=== PATIENT | female | born 2000 | race Caucasian/White ===

== ENCOUNTER 2022-07-23 09:04 | Outpatient (CLI) | payer OTHER, SELFPAY ==
[2022-07-23 13:32] LABS: Cholesterol* 130 mg/dL (90-199); Glucose* 91 mg/dL (60-115); Triglycerides* 55 mg/dL (40-149)
[2022-07-23 13:33] LABS: HDL Cholesterol* 61 mg/dL (>=50); LDL Cholesterol Calculated 58 mg/dL (<100)
[2022-07-23 15:49] LABS: Chlamydia DNA Amplified* NOT DETECTED (No Detected); GC DNA Amplified* NOT DETECTED (No Detected)
== END 2022-07-23 09:05 | disposition home or self-care (01) ==
PROVIDERS: PCP Physician Assistant Medical; Visit Provider Physician Assistant Medical
DX: Z01.419 Encounter for gynecological examination (general) (routine) without abnormal findings (principal); Z13.6 Encounter for screening for cardiovascular disorders; Z13.1 Encounter for screening for diabetes mellitus; Z11.3 Encounter for screening for infections with a predominantly sexual mode of transmission
CPT/HCPCS: 80061; 82947; 84443; 87491; 87591

== ENCOUNTER 2022-10-23 15:14 | Emergency (ER) | payer OTHER, SELFPAY ==
--- NOTE | 2022-10-23 15:47 | ED.NURSE ---
Refusal of services form signed. LWBS.
== END 2022-10-23 15:47 | disposition left against medical advice (07) ==
PROVIDERS: PCP Physician Assistant Medical
DX: M54.9 Dorsalgia, unspecified (principal)

== ENCOUNTER 2022-10-23 18:56 | Emergency (ER) | payer OTHER, SELFPAY ==
[2022-10-23 19:05] VITALS: PULSE 74
[2022-10-23 19:06] VITALS: BP 127/85; PULSE 74; RESP 18; TEMP 36.7; O2SAT 99; BMI 16.7
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
[2022-10-23 21:26] VITALS: BP 120/74; PULSE 79; RESP 18; TEMP 36.7; O2SAT 99
[2022-10-23 21:27] VITALS: BP 120/74; PULSE 79; RESP 18; TEMP 36.7
== END 2022-10-23 21:28 | disposition home or self-care (01) ==
PROVIDERS: Emergency Provider Internal Medicine; PCP Physician Assistant Medical
DX: M54.50 Low back pain, unspecified (principal); V43.52XA Car driver injured in collision with other type car in traffic accident, initial encounter
CPT/HCPCS: 72125; 72128; 72131; 99283

== ENCOUNTER 2022-11-20 08:12 | Outpatient (CLI) | payer OTHER, SELFPAY | END 2022-11-20 08:13 | disposition home or self-care (01) | PROVIDERS: PCP Physician Assistant Medical; Visit Provider Obstetrics & Gynecology | DX: Z34.90 Encounter for supervision of normal pregnancy, unspecified, unspecified trimester (principal) | CPT/HCPCS: 84702 ==

== ENCOUNTER 2023-02-15 13:29 | Outpatient (CLI) | payer OTHER, SELFPAY | END 2023-02-15 13:30 | disposition home or self-care (01) | LOC: NFLDREF 02-17 18:17 | PROVIDERS: PCP Physician Assistant Medical; Referring Provider Physician Assistant Medical; Visit Provider Family Medicine | DX: N39.0 Urinary tract infection, site not specified (principal); M54.50 Low back pain, unspecified; R10.9 Unspecified abdominal pain; F41.1 Generalized anxiety disorder; R63.4 Abnormal weight loss; N30.01 Acute cystitis with hematuria; Z13.1 Encounter for screening for diabetes mellitus; Z13.6 Encounter for screening for cardiovascular disorders | CPT/HCPCS: 87086; 87186 ==

== ENCOUNTER 2023-05-03 13:13 | Outpatient (CLI) | payer OTHER, SELFPAY ==
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
== END 2023-05-03 13:14 | disposition home or self-care (01) ==
LOC: US 13:14
PROVIDERS: PCP Physician Assistant Medical; Visit Provider Obstetrics & Gynecology
DX: O20.9 Hemorrhage in early pregnancy, unspecified (principal)
CPT/HCPCS: 76817; 84702; 86850; 86900; 86901

== ENCOUNTER 2023-05-25 18:32 | Outpatient (CLI) | payer OTHER, SELFPAY | END 2023-05-25 18:33 | disposition home or self-care (01) | PROVIDERS: PCP Physician Assistant Medical; Visit Provider Emergency Medicine | DX: N30.00 Acute cystitis without hematuria (principal); N39.0 Urinary tract infection, site not specified; Z68.1 Body mass index [BMI] 19.9 or less, adult | CPT/HCPCS: 84439; 84443; 84703; 87086; 87186 ==

== ENCOUNTER 2023-05-27 14:42 | Emergency (ER) | payer OTHER, SELFPAY ==
[2023-05-27 14:54] VITALS: BP 124/82; PULSE 85; RESP 16; TEMP 36.6; O2SAT 98; BMI 15.8
--- NOTE | 2023-05-27 16:12 | ED.FEMALEGU ---
HPI - Female Genitourinary General Chief complaint: Urogenital Problems, Female Stated complaint: UTI, syncope Time Seen by Provider: 05/27/23 15:35 History of Present Illness HPI Narrative: This 22-year-old female has had dysuria symptoms for the past several days and was treated for urinary tract infection. Culture results grew out E coli which is showing extensive resistance. She revisited urgent care and did receive an injection of Rocephin. Today she states he is not feeling any better and did have some lightheadedness. She also reports a miscarriage that she had a couple weeks ago and since then she has been losing some weight and just not feeling well. Culture results also now include sensitivity which show that the antibiotics she has been taking are not effective for this particular infection. Related Data Home Medications Medication Instructions Recorded Confirmed drospirenone (contraceptive) 4 mg 1 tab PO DAILY 07/23/22 05/26/23 (28) tablet Previous Rx's Medication Instructions Recorded ketorolac 10 mg tablet 10 mg PO Q8H 5 days #15 tabs 05/27/23 ondansetron HCl 4 mg tablet 4 mg PO Q6H #20 tabs 05/27/23 sulfamethoxazole 800 1 tab PO BID #10 tabs 05/27/23 mg-trimethoprim 160 mg tablet Allergies Allergy/AdvReac Type Severity Reaction Status Date / Time No Known Drug Allergies Allergy Verified 05/27/23 15:00 Review of Systems Status of ROS: Reports: 10 or more systems reviewed and unremarkable except as noted in History and below Narrative: Constitutional: No fevers, no weight gain or loss. Eyes: No discharge. No vision changes. HENT: No congestion, no sore throat, no ear pain. Cardiovascular: No chest pain, no palpitations. Respiratory: No shortness of breath, no wheezes, no cough. Gastrointestinal: No abdominal pain, no vomiting, no diarrhea. Left flank pain. Genitourinary: Urinary tract infection. Musculoskeletal: Normal range of motion. Skin: No rashes, no pruritis. Neurological: No dizziness, weakness, sensory change, speech change. Endo/Heme/Allergies: No bruising or bleeding. No polydipsia. Pysch: no suicidality, no anxiety, no insomnia. All other systems reviewed and are negative. [facility] Medical History (Updated 05/27/23 @ 18:08 by Jose Angel Burks MD) Miscarriage ?O03.9 - Complete or unspecified spontaneous without complication (ICD-10) Smoking hx ?Z87.891 - Personal history of nicotine dependence (ICD-10) Body mass index (BMI) less than 16.5 ?Z68.1 - Body mass index [BMI] 19.9 or less, adult (ICD-10) Urinary tract infection ?N39.0 - Urinary tract infection, site not specified (ICD-10) Otitis media ?H66.90 - Otitis media, unspecified, unspecified ear (ICD-10) Miscarriage, threatened, early ?O20.0 - Threatened (ICD-10) Pharyngitis ?J02.9 - Acute pharyngitis, unspecified (ICD-10) Fever ?R50.9 - Fever, unspecified (ICD-10) Vesicles ?R23.8 - Other skin changes (ICD-10) Juvenile idiopathic scoliosis ?M41.119 - Juvenile idiopathic scoliosis, site unspecified (ICD-10) Low back pain ?M54.50 - Low back pain, unspecified (ICD-10) Anxiety ?F41.9 - Anxiety disorder, unspecified (ICD-10) First trimester ?Z34.91 - Encounter for supervision of normal , unspecified, first trimester (ICD-10) Surgical History History of spinal fusion ?Z98.1 - Arthrodesis status (ICD-10) Family History Paternal Grandmother Breast cancer Paternal Grandfather Skin cancer Social History Narrative: Engaged- [employer]. Former smoker. Quit April 2022 hx of smoking cigarettes and vape. Quit April 2022. Occasional alcohol use. Smoking Status: Never smoker Do you use any of these nicotine containing products: None Second hand tobacco smoke exposure: No How often do you have a drink containing alcohol: never How often do you have six or more drinks on one occasion: Never AUDIT-C Alcohol total score: 0 Non-prescribed substance use: marijuana (any form) Little interest or pleasure in doing things: not at all Feeling down, depressed, or hopeless: not at all service: No Exam Narrative: Exam Narrative: Constitutional: Well-developed, well-nourished, no acute distress. HEENT: Normocephalic, atraumatic. Neck: Normal range of motion. Nontender. Supple. Heart: Regular. No murmurs. Normal rate. Intact distal pulses. Lungs: Clear to auscultation. No chest discomfort. No wheezes, rhonchi, or rales. Abdomen: Normal bowel sounds. Nontender. No rebound tenderness. Genitalia: Deferred. Back: No midline tenderness. Normal range of motion. Extremities: Normal range of motion. No injury. Skin: Intact. No rash. Warm. No erythema or pallor. Neurologic: No altered sensation. No weakness. Alert and oriented. Psychiatric: No suicidality. No anxiety or depression. No insomnia. Nursing notes and vitals signs are reviewed. Const: Vital Signs, click to edit/add: Vital Signs - 24 hr 05/27/23 14:54 05/27/23 17:30 Temperature 97.9 F Pulse Rate [Pulse Oximeter] 85 73 Respiratory Rate 16 20 Blood Pressure [Ri t Upper Arm] 124/82 115/73 Pulse Oximetry 98 100 Oxygen Delivery Me thod Room Air Room Air Course Vital Signs Vital signs: Initial Vital Signs Temperature 97.9 F 05/27/23 14:54 Temperature Source Temporal Artery Scan 05/27/23 14:54 Pulse Rate 85 05/27/23 14:54 Pulse Rhythm Regular 05/27/23 14:54 Pulse Strength 3+ Normal 05/27/23 14:54 Respiratory Rate 16 05/27/23 14:54 Blood Pressure 124/82 05/27/23 14:54 Blood Pressure Mean 96 05/27/23 14:54 Blood Pressure Position Sitting 05/27/23 14:54 Pulse Oximetry 98 05/27/23 14:54 Oxygen Delivery Method Room Air 05/27/23 14:54 Vital Signs Temperature 97.9 F 05/27/23 14:54 Pulse Rate 85 05/27/23 14:54 Respiratory Rate 16 05/27/23 14:54 Blood Pressure 124/82 05/27/23 14:54 Pulse Oximetry 98 05/27/23 14:54 Oxygen Delivery Method Room Air 05/27/23 14:54 Temperature 97.9 F 05/27/23 14:54 Pulse Rate 73 05/27/23 17:30 Respiratory Rate 20 05/27/23 17:30 Blood Pressure 115/73 05/27/23 17:30 Pulse Oximetry 100 05/27/23 17:30 Oxygen Delivery Method Room Air 05/27/23 17:30 MDM - Female Genitourinary MDM Narrative Medical decision making narrative: This patient comes in with a resistant urinary tract infection according to culture results. She states that she just has not been feeling well over the past couple weeks since having a miscarriage. She has nausea symptoms and states that is very difficult for her to try to take food as this triggers nausea symptoms. An IV was established and labs are drawn. These labs including urinalysis returned with normal findings. There is no evidence of sepsis or urinary tract infection. I did review culture and sensitivity results. The culture shows a resistant strain of E coli. Sensitivities indicate that ertapenem is the most effective medicine to treat this infection. The patient did receive a g of ertapenem intravenously followed by D5 half-normal saline. She also received a dose of Zofran 4 mg. This helped her feel better. Seeing the normal white count in her blood and normal urinalysis it seems that it is best not to continue antibiotic treatment for her. She is reassured with these lab results in her vital signs. She is okay to return home. I did provide a prescription for Zofran and Toradol and encouraged her to food and drink as tolerated. Lab Data Labs: Lab Results 05/27/23 05/27/23 Range/Units 16:25 16:40 WBC 6.33 (4.50-11.00) K/uL RBC 4.39 (4.00-5.20) m/uL Hgb 13.3 (12.0-16.0) gm/dL Hct 38.7 (33.0-51.0) % MCV 88 (80-100) fL MCH 30 (26-34) pg MCHC 34 (32-36) gm/dL RDW Coeff of Chris 12.2 (11.5-15.5) % Plt Count 250 (140-440) K/uL Neut % (Auto) 55.4 (42.0-72.0) % Lymph % (Auto) 35.7 (20-44) % [place] % (Auto) 7.6 (0.0-11.0) % Eos % (Auto) 0.6 (0.0-7.0) % Baso % (Auto) 0.5 (0.0-3.0) % Neut # (Auto) 3.51 (1.7-7.0) K/uL Lymph # (Auto) 2.26 (0.90-2.90) K/uL [place] # (Auto) 0.50 (0.00-0.90) K/UL Eos # (Auto) 0.04 (0.00-0.50) K/uL Baso # (Auto) 0.03 (0.00-0.30) K/uL Abs Immat Gran (auto) 0.01 (0.00-0.30) K/uL Imm/Tot Granulo (auto) 0.2 % Sodium 138 (135-149) mmol/L Potassium 3.4 L (3.6-5.1) mmol/L Chloride 107 (96-114) mmol/L Carbon Dioxide 22 (20-32) mmol/L BUN 8 (5-24) mg/dL Creatinine 0.7 (0.5-1.5) mg/dL Estimated Creat Clear 100.14 Estimated GFR 126 ml/min Glucose 88 (60-115) mg/dL Lactate 0.9 (0.5-1.9) mmol/L Calcium 9.2 (8.4-10.6) mg/dL Urine Color Yellow (Yellow) Urine Appearance Slightly Cloudy A (Clear) Urine pH 7.0 (5.0-8.5) Ur Specific [place] 1.025 (1.000-1.030) Urine Protein Negative (Negative) Urine Glucose (UA) Negative (Negative) Urine Ketones 1+ A (Negative) Urine Blood Negative (Negative) Urine Nitrite Negative (Negative) Urine Bilirubin Negative (Negative) Urine Urobilinogen 0.2 (0.2-1.0) Ur Leukocyte Esterase Negative (Negative) Urine RBC 0-2 (0-2) Urine WBC 2-5 (0-5) Ur Squamous Epith Cells Moderate A (None-Few) Urine Bacteria Few A (None) Discharge Plan Discharge Clinical Impression: Urinary tract infection, Nausea Patient Disposition: Home, Self-Care Condition: Improved Additional Instructions: Take medications as needed and directed. Increase diet as tolerated. Follow up with MD return if worsening. Prescriptions: New ondansetron HCl 4 mg tablet 4 mg PO Q6H Qty: 20 0RF ketorolac 10 mg tablet 10 mg PO Q8H 5 Days Qty: 15 0RF No Action drospirenone (contraceptive) 4 mg (28) tablet 1 tab PO DAILY Rx Instructions: control sulfamethoxazole-trimethoprim 800-160 mg tablet 1 tab PO BID Qty: 10 0RF Follow Up/Referrals: Cynthia Henderson PA-C [Primary Care Provider] - Stand Alone [facility]: [facility] Info Inst[facility]
[2023-05-27 16:32] LABS: Lactate* 0.9 mmol/L (0.5-1.9)
[2023-05-27] MEDS: ERTAPENEM 1 GM in 0.9 % SODIUM CHLORIDE Mini-bag 100 ML IVPB (16:42)
[2023-05-27 16:45] LABS: Basophils Absolute Auto 0.03 K/uL (0.00-0.30); Basophils Percent Auto 0.5 % (0.0-3.0); Eosinophils Absolute Auto 0.04 K/uL (0.00-0.50); Eosinophils Percent Auto 0.6 % (0.0-7.0); Hematocrit 38.7 % (33.0-51.0); Hemoglobin* 13.3 gm/dL (12.0-16.0); Immature Granulocytes Abs Auto 0.01 K/uL (0.00-0.30); Immature Granulocytes Pct Auto 0.2 %; Lymphocytes Absolute Auto 2.26 K/uL (0.90-2.90); Lymphocytes Percent Auto 35.7 % (20-44); Mean Corpuscular HGB Conc 34 gm/dL (32-36); Mean Corpuscular Hemoglobin 30 pg (26-34); Mean Corpuscular Volume 88 fL (80-100); Monocytes Percent Auto 7.6 % (0.0-11.0); Neutrophils Absolute Auto 3.51 K/uL (1.7-7.0); Neutrophils Percent Auto 55.4 % (42.0-72.0); Platelet Count* 250 K/uL (140-440); RDW Coefficient of Variation % 12.2 % (11.5-15.5); Red Blood Count 4.39 m/uL (4.00-5.20); White Blood Count* 6.33 K/uL (4.50-11.00)
[2023-05-27 16:52] LABS: Slide Review Reflex No
[2023-05-27 16:53] LABS: Appearance Urine Slightly Cloudy (Clear); Bilirubin Urine Negative (Negative); Blood Urine Negative (Negative); Color Urine Yellow (Yellow); Glucose Urine Negative (Negative); Ketones Urine 1+ (Negative); Leukocyte Esterase Urine Negative (Negative); Nitrite Urine Negative (Negative); Protein Urine Negative (Negative); Specific Gravity Urine 1.025 (1.000-1.030); Urobilinogen Urine 0.2 (0.2-1.0)
[2023-05-27 16:53] LABS: Chloride* 107 mmol/L (96-114); Potassium* 3.4 mmol/L (3.6-5.1); Sodium* 138 mmol/L (135-149)
[2023-05-27 16:56] LABS: Blood Urea Nitrogen* 8 mg/dL (5-24); Calcium* 9.2 mg/dL (8.4-10.6); Carbon Dioxide* 22 mmol/L (20-32); Creatinine* 0.7 mg/dL (0.5-1.5); Est. Creatinine Clearance* 100.14; Estimated Glomerular Filt Rate 126 ml/min; Glucose* 88 mg/dL (60-115)
[2023-05-27 17:21] LABS: Bacteria Urine Few; RBC Urine 0-2 (0-2); Squamous Epithelial Cell Urine Moderate (None-Few)
[2023-05-27 17:30] VITALS: BP 115/73; PULSE 73; RESP 20; O2SAT 100
[2023-05-27] MEDS: 5 % DEXTROSE/0.45% SOD CHLOR 1,000 ML 1000 ML IV (17:31)
[2023-05-27] MEDS: ONDANSETRON 2 MG/ML inj 4 MG IVP (17:50)
== END 2023-05-27 18:37 | disposition home or self-care (01) ==
PROVIDERS: Emergency Provider Emergency Medicine Emergency Medical Services; PCP Physician Assistant Medical
DX: N39.0 Urinary tract infection, site not specified (principal); B96.20 Unspecified Escherichia coli [E. coli] as the cause of diseases classified elsewhere
CPT/HCPCS: 36415; 80048; 81001; 83605; 85025; 87086; 99284; J1335; J2405; S5010

== ENCOUNTER 2023-12-26 12:18 | Outpatient (CLI) | payer OTHER, SELFPAY | END 2023-12-26 12:19 | disposition home or self-care (01) | LOC: LKVREF 12:21 | PROVIDERS: PCP Physician Assistant Medical; Visit Provider Family Medicine | DX: O26.891 Other specified pregnancy related conditions, first trimester (principal) | CPT/HCPCS: 84702 ==

== ENCOUNTER 2023-12-28 12:54 | Outpatient (CLI) | payer OTHER, SELFPAY | END 2023-12-28 12:55 | disposition home or self-care (01) | LOC: NFLDREF 01-07 12:34 | PROVIDERS: PCP Physician Assistant Medical; Referring Provider Physician Assistant Medical; Visit Provider Advanced Practice Midwife | DX: Z34.91 Encounter for supervision of normal pregnancy, unspecified, first trimester (principal); Z3A.01 Less than 8 weeks gestation of pregnancy | CPT/HCPCS: 76817; 86592; 86704; 86706; 86762; 86787; 86803; 86850; 86900; 86901; 87340; 87491; 87591 ==

== ENCOUNTER 2024-01-01 09:32 | Emergency (ER) | payer OTHER, SELFPAY ==
[2024-01-01 09:46] VITALS: BP 110/84; PULSE 118; RESP 20; TEMP 37.3; O2SAT 96; BMI 16.9
--- NOTE | 2024-01-01 10:03 | US_ITS ---
Patient: ANA ROD Facility:?[facility] Patient ID:?[id number] Site Patient ID:?[id number]. Site :?[id number] Study:?US-OB Pelvis TRANSVAGINAL-01/01/2024 10:40:01 AM Ordering Physician:AIXA DAWKINS Final Report: INDICATION: Vaginal bleeding, 6 weeks TECHNIQUE: Ultrasound OB pelvis transabdominal transvaginal. Real-time chavez-scale imaging of the pelvis was performed. COMPARISON: Ultrasound December 28, 2023 FINDINGS: Sonographic imaging demonstrates a single living intrauterine gestation. The embryo demonstrates a regular cardiac rate measuring 123 beats per minute. The embryo`s crown rump length measurement of 0.8 cm corresponds to a gestational age of 6 weeks 5 days with a sonographic due date of August 21, 2024. There is a normal appearing yolk sac. There are no gross abnormalities noted within the embryo at this early state of development. The placenta has not yet developed. There is minimal perigestational hemorrhage, new from previous exam. The ovaries are of normal size. There are no suspicious fluid collections noted in the cul-de-sac. IMPRESSION: Redemonstration of a single live intrauterine gestation measuring 6 weeks 5 days with interval development of minimal subchorionic hemorrhage along the right lateral aspect of the gestational sac. Dictated by Dc Acosta MD @ 01/01/2024 11:08:03 AM Signed by:?Dc Acosta MD @01/01/2024 11:08:03 AM (Electronic Signature)
--- NOTE | 2024-01-01 10:10 | ED.PREGNANCY ---
HPI - General Date Seen: 01/01/24 Chief complaint: Vaginal Bleeding Stated complaint: spotting, cramps (6 wks ) Time Seen by Provider: 01/01/24 09:42 Source: patient Mode of arrival: ambulatory Limitations: no limitations History of Present Illness HPI Narrative: Patient is a 23 female A2 presenting to the emergency department for vaginal bleeding. She is 6 weeks . She states last night she knows some lower abdominal cramping and then had some spotting today. She states she has had 2 previous miscarriages both around this time. States previously she will start with the small amount of spotting and then have a large amount of vaginal bleeding after. He is also feeling mildly lightheaded and dizzy. States she feels short of breath but thinks secondary to her anxiety with her situation currently. Denies fevers, chills, headache, vision changes, weakness, numbness. Has been eating and drinking without issue. Had a normal ultrasound a few days ago. Related Data Home Medications Medication Instructions Recorded Confirmed vits no.126-ferrous fum 1 tab PO QDAY PRN 12/28/23 01/01/24 28 mg iron-folic acid 800 mcg tablet (Classic ) Previous Rx's Medication Instructions Recorded ondansetron 4 mg disintegrating 4 mg PO Q6H PRN nausea and 09/07/23 tablet vomiting #12 tabs Allergies Allergy/AdvReac Type Severity Reaction Status Date / Time No Known Drug Allergies Allergy Verified 01/01/24 09:54 Review of Systems Status of ROS: Reports: 10 or more systems reviewed and unremarkable except as noted in History and below PFSH PFSH Medical History Irregular menstrual cycle ?N92.6 - Irregular menstruation, unspecified (ICD-10) Uses control ?Z78.9 - Other specified health status (ICD-10) Surgical History (Updated 12/28/23 @ 12:29 by Laura Fernandez CNM) H/O dilation and curettage ?Z98.890 - Other specified postprocedural states (ICD-10) History of spinal fusion ?Z98.1 - Arthrodesis status (ICD-10) Family History Paternal Grandmother Breast cancer Paternal Grandfather Skin cancer Social History (Updated 12/28/23 @ 17:02 by VITA Garrett Narrative: SOCIAL Education: High school 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 Palmer; no medication currently Has a hard time with rationalizing, often spirals Significant NAKIA scores today Seat Belt Use: Routinely Smoking: Denies past/present; Cig stopped 2 years ago, using e cig. Alcohol/day: Denies while , rarely socially Caffeine: Monster 1x per day, but stopped for Drug Use: Denies past/present Smoking THC occasionally; declines UDS Chicken Pox: vaccinated MRSA: Denies What is your current living situation?: I presently have a place to live Problems where you live: no known problems In the past 12 months, utilities in danger of being shut off: no In past 12 months, lack of transportation kept you from medical appts, meetings, work, or getting things needed for daily living: no In the past 12 mos, have been you worried that your food would run out before you had money to buy more?: never true In the past 12 mos, the food you bought just didn't last and you didn't have money to buy more?: never true Smoking Status: Never smoker Do you use any of these nicotine containing products: None Second hand tobacco smoke exposure: No How often do you have a drink containing alcohol: never How often do you have six or more drinks on one occasion: Never AUDIT-C Alcohol total score: 0 Non-prescribed substance use: marijuana (any form) How often does anyone, including family, friends and others, physically hurt you: never How often does anyone, including family, friends and others, insult or talk down to you: never How often does anyone, including family, friends and others, threaten you with harm: never How often does anyone, including family, friends and others, scream or curse at you: never Little interest or pleasure in doing things: more than half the days Feeling down, depressed, or hopeless: not at all service: No Exam Narrative: Exam Narrative: Const: Well-nourished, Well-developed, in mild distress Eyes: PERRL, no conjunctival injection, and symmetrical lids HENT: Atraumatic external nose and ears. Moist mucous membranes. Neck: Symmetric, trachea midline, No thyromegaly. CVS: RRR, No murmurs or gallops. Peripheral pulses 2+ and equal in all extremities RESP: Unlabored respiratory effort. Clear to auscultation bilaterally. GI: Nontender/Nondistended, No rebound or guarding. MSK:Extremities w/o deformity, Normal Active ROM Skin: Warm, Dry. No rashes or lesions. Neuro: Normal Muscle tone, No focal neurological deficits. Psych: Awake, Alert, & Oriented x3. Appropriate mood and affect. Const: Vital Signs, click to edit/add: Vital Signs - 24 hr 01/01/24 09:46 Temperature 99.2 F Pulse Rate [Pulse Oximeter] 118 H Respiratory Rate 20 Blood Pressure [Ri ght Upper Arm] 110/84 Pulse Oximetry 96 Oxygen Delivery Me thod Room Air Course Vital Signs Vital signs: Initial Vital Signs Temperature 99.2 F 01/01/24 09:46 Temperature Source Temporal Artery Scan 01/01/24 09:46 Pulse Rate 118 H 01/01/24 09:46 Respiratory Rate 20 01/01/24 09:46 Blood Pressure 110/84 01/01/24 09:46 Blood Pressure Mean 92 01/01/24 09:46 Blood Pressure Position Sitting 01/01/24 09:46 Pulse Oximetry 96 01/01/24 09:46 Oxygen Delivery Method Room Air 01/01/24 09:46 Vital Signs Temperature 99.2 F 01/01/24 09:46 Pulse Rate 118 H 01/01/24 09:46 Respiratory Rate 20 01/01/24 09:46 Blood Pressure 110/84 01/01/24 09:46 Pulse Oximetry 96 01/01/24 09:46 Oxygen Delivery Method Room Air 01/01/24 09:46 Temperature 99.2 F 01/01/24 09:46 Pulse Rate 118 H 01/01/24 09:46 Respiratory Rate 20 01/01/24 09:46 Blood Pressure 110/84 01/01/24 09:46 Pulse Oximetry 96 03/16/24 09:46 Oxygen Delivery Method Room Air 01/01/24 09:46 MDM - OB/Uterine Contractions MDM Narrative Medical decision making narrative: Patient is 23-year-old female presenting for vaginal bleeding. She had normal intra uterine seen on ultrasound a couple days ago but has had issues with multiple miscarriages around this time frame. We will repeat the ultrasound to make sure there is no new concerning findings. With her mild symptoms of lightheadedness I will do a CBC and BMP also. She is slightly tachycardic but admits to being very anxious. Lab work returned showing no concerning findings. Ultrasound showed a single live intrauterine with it some minimal subchorionic hemorrhage that is new. This is not something needs to be managed in the emergency department and she can follow-up outpatient. She is agreeable to this plan. Lab Data Labs: Lab Results 01/01/24 Range/Units 10:38 WBC 7.45 (4.50-11.00) K/uL RBC 4.56 (4.00-5.20) m/uL Hgb 13.9 (12.0-16.0) gm/dL Hct 40.5 (33.0-51.0) % MCV 89 (80-100) fL MCH 31 (26-34) pg MCHC 34 (32-36) gm/dL RDW Coeff of Chris 12.0 (11.5-15.5) % Plt Count 261 (140-440) K/uL Neut % (Auto) 64.5 (42.0-72.0) % Lymph % (Auto) 28.9 (20-44) % [place] % (Auto) 5.8 (0.0-11.0) % Eos % (Auto) 0.3 (0.0-7.0) % Baso % (Auto) 0.4 (0.0-3.0) % Neut # (Auto) 4.81 (1.7-7.0) K/uL Lymph # (Auto) 2.15 (0.90-2.90) K/uL [place] # (Auto) 0.40 (0.00-0.90) K/UL Eos # (Auto) 0.02 (0.00-0.50) K/uL Baso # (Auto) 0.03 (0.00-0.30) K/uL Abs Immat Gran (auto) 0.01 (0.00-0.30) K/uL Imm/Tot Granulo (auto) 0.1 % Sodium 137 (135-149) mmol/L Potassium 4.0 (3.6-5.1) mmol/L Chloride 106 (96-114) mmol/L Carbon Dioxide 21 (20-32) mmol/L Anion Gap 10 (7-15) mEq/L BUN 12 (5-24) mg/dL Creatinine 0.6 (0.5-1.5) mg/dL Estimated Creat Clear 124.27 Estimated GFR 130 ml/min Glucose 85 (60-115) mg/dL Calcium 9.6 (8.4-10.6) mg/dL Imaging Data Transvaginal ultrasound: Radiologist's impression: Redemonstration of a single live intrauterine gestation measuring 6 weeks 5 days with interval development of minimal subchorionic hemorrhage along the right lateral aspect of the gestational sac. Dictated by Dc Acosta MD @ 01/01/2024 11:08:03 AM Discharge Plan Discharge Clinical Impression: Subchorionic hematoma in first trimester Qualifiers: Fetus number: single or unspecified fetus Qualified Code(s): O41.8X10 - Other specified disorders of amniotic fluid and membranes, first trimester, not applicable or unspecified Patient Disposition: Home, Self-Care Condition: Stable Instructions: Subchorionic Hemorrhage (ED) Additional Instructions: Follow-up with your OB. Return to emergency department for new or worsening symptom Prescriptions: No Action ondansetron 4 mg tablet,disintegrating 4 mg PO Q6H PRN (Reason: nausea and vomiting) Qty: 12 0RF Classic 28 mg iron- 800 mcg tablet 1 tab PO QDAY PRN Follow Up/Referrals: Cynthia Henderson PA-C [Primary Care Provider] - Stand Alone Forms: [facility] Info Instructions
[2024-01-01 10:51] LABS: Basophils Absolute Auto 0.03 K/uL (0.00-0.30); Basophils Percent Auto 0.4 % (0.0-3.0); Eosinophils Absolute Auto 0.02 K/uL (0.00-0.50); Eosinophils Percent Auto 0.3 % (0.0-7.0); Hematocrit 40.5 % (33.0-51.0); Hemoglobin* 13.9 gm/dL (12.0-16.0); Immature Granulocytes Abs Auto 0.01 K/uL (0.00-0.30); Immature Granulocytes Pct Auto 0.1 %; Lymphocytes Absolute Auto 2.15 K/uL (0.90-2.90); Lymphocytes Percent Auto 28.9 % (20-44); Mean Corpuscular HGB Conc 34 gm/dL (32-36); Mean Corpuscular Hemoglobin 31 pg (26-34); Mean Corpuscular Volume 89 fL (80-100); Monocytes Percent Auto 5.8 % (0.0-11.0); Neutrophils Absolute Auto 4.81 K/uL (1.7-7.0); Neutrophils Percent Auto 64.5 % (42.0-72.0); Platelet Count* 261 K/uL (140-440); Red Blood Count 4.56 m/uL (4.00-5.20); White Blood Count* 7.45 K/uL (4.50-11.00)
[2024-01-01 10:53] LABS: Slide Review Reflex No
[2024-01-01 10:55] LABS: Chloride* 106 mmol/L (96-114); Sodium* 137 mmol/L (135-149)
[2024-01-01 10:58] LABS: Anion Gap 10 mEq/L (7-15); Blood Urea Nitrogen* 12 mg/dL (5-24); Carbon Dioxide* 21 mmol/L (20-32); Creatinine* 0.6 mg/dL (0.5-1.5); Est. Creatinine Clearance* 124.27; Estimated Glomerular Filt Rate 130 ml/min
[2024-01-01 10:59] LABS: Calcium* 9.6 mg/dL (8.4-10.6); Glucose* 85 mg/dL (60-115)
== END 2024-01-01 11:23 | disposition home or self-care (01) ==
PROVIDERS: Emergency Provider Student in an Organized Health Care Education/Training Program; PCP Physician Assistant Medical
DX: O41.8X10 Other specified disorders of amniotic fluid and membranes, first trimester, not applicable or unspecified (principal); Z3A.01 Less than 8 weeks gestation of pregnancy
CPT/HCPCS: 36415; 76817; 80048; 85025; 99283; 99284

== ENCOUNTER 2024-01-03 11:06 | Outpatient (CLI) | payer OTHER, SELFPAY | END 2024-01-03 11:07 | disposition home or self-care (01) | PROVIDERS: PCP Physician Assistant Medical; Visit Provider Advanced Practice Midwife | DX: R42 Dizziness and giddiness (principal); Z32.02 Encounter for pregnancy test, result negative | CPT/HCPCS: 84443; 84702; 84703; 87086 ==

== ENCOUNTER 2024-01-05 08:18 | Emergency (ER) | payer OTHER, SELFPAY ==
[2024-01-05] VITALS (7 sets, daily range): BP systolic 111–129; BP diastolic 73–91; PULSE 73–112; RESP 12–14; TEMP 37.1; O2SAT 97–100; BMI 16.4
--- NOTE | 2024-01-05 08:28 | ED.GENADULT ---
HPI - General Adult General Chief complaint: Syncope/Fainted Stated complaint: lightheaded / blurry vison / passed out Time Seen by Provider: 01/05/24 08:21 History of Present Illness HPI narrative: Patient is a 23-year-old female who is G3 para 0020 about 7 weeks gestational age, she has had subchorionic hemorrhage, she has been evaluated by midwives which she follow-up plans on following through with for delivery. She also has significant anxiety, she recently started Lexapro for that. Today she felt lightheaded when she got up she felt she almost passed out, she said she bumped her head but did not hit it hard enough to knock herself out, she did not lose consciousness. She had no chest pain, no shortness of breath no diaphoresis. She is concerned her blood pressures been running low. She reports she has no eating disorder, she has had nausea yesterday and intermittently but not really vomiting, she said she had a couple of dry heaves. The patient reports she has been eating 3 meals a day and drinking water adequately. She has had no fever, chills, cough, shortness of breath or chest pain. No leg swelling or edema. She is noted to be quite thin, and she has reported that she has generally been thin her whole life. Related Data Home Medications Medication Instructions Recorded Confirmed vits no.126-ferrous fum 1 tab PO QDAY PRN 12/28/23 01/03/24 28 mg iron-folic acid 800 mcg tablet (Classic ) Previous Rx's Medication Instructions Recorded ondansetron 4 mg disintegrating 4 mg PO Q6H PRN nausea and 09/07/23 tablet vomiting #12 tabs escitalopram oxalate 10 mg tablet 10 mg PO QDAY #60 tabs 01/03/24 (Lexapro) nicotine 10 mg inhalation 1 inh inhalation 4-6XD PRN 01/03/24 cartridge (Nicotrol) nicotine cravings #168 ea Allergies Allergy/AdvReac Type Severity Reaction Status Date / Time No Known Drug Allergies Allergy Verified 01/03/24 10:32 Review of Systems Status of ROS: Reports: 6 or more systems reviewed and unremarkable except as noted in History and below PFSH PFSH Medical History Irregular menstrual cycle ?N92.6 - Irregular menstruation, unspecified (ICD-10) Uses control ?Z78.9 - Other specified health status (ICD-10) Surgical History H/O dilation and curettage ?Z98.890 - Other specified postprocedural states (ICD-10) History of spinal fusion ?Z98.1 - Arthrodesis status (ICD-10) Family History Paternal Grandmother Breast cancer Paternal Grandfather Skin cancer Social History Narrative: SOCIAL Education: High school 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 Palmer; no medication currently Has a hard time with rationalizing, often spirals Significant NAKIA scores today Seat Belt Use: Routinely Smoking: Denies past/present; Cig stopped 2 years ago, using e cig. Alcohol/day: Denies while , rarely socially Caffeine: Monster 1x per day, but stopped for Drug Use: Denies past/present Smoking THC occasionally; declines UDS Chicken Pox: vaccinated MRSA: Denies What is your current living situation?: I presently have a place to live Problems where you live: no known problems In the past 12 months, utilities in danger of being shut off: no In past 12 months, lack of transportation kept you from medical appts, meetings, work, or getting things needed for daily living: no In the past 12 mos, have been you worried that your food would run out before you had money to buy more?: never true In the past 12 mos, the food you bought just didn't last and you didn't have money to buy more?: never true Smoking Status: Never smoker Do you use any of these nicotine containing products: None Second hand tobacco smoke exposure: No How often do you have a drink containing alcohol: never How often do you have six or more drinks on one occasion: Never AUDIT-C Alcohol total score: 0 Non-prescribed substance use: marijuana (any form) How often does anyone, including family, friends and others, physically hurt you: never How often does anyone, including family, friends and others, insult or talk down to you: never How often does anyone, including family, friends and others, threaten you with harm: never How often does anyone, including family, friends and others, scream or curse at you: never Little interest or pleasure in doing things: nearly every day Feeling down, depressed, or hopeless: several days service: No Exam Narrative: Exam Narrative: Objective: In general patient is no apparent distress, no pelvic pain reported Alert orient x3 HEENT unremarkable no scleral icterus mouth clear, moist mucous membranes Neck is supple Chest clear Heart rhythm regular heart murmur Abdomen benign soft Extremities are no edema neurologic nonfocal Good peripheral perfusion noted. Const: Vital Signs, click to edit/add: Vital Signs - 24 hr 01/05/24 08:26 01/05/24 09:25 Temperature 98.7 F Pulse Rate [Pulse Oximeter] 79 Pulse Rate [orthos tatic lying Pulse Oximeter] 73 Pulse Rate [orthos tatic sitting Puls e Oximeter] 90 Pulse Rate [orthos tatic standing Pul se Oximeter] 112 H Respiratory Rate 14 Blood Pressure [Ri ght Upper Arm] 111/79 Blood Pressure [or thostatic lying Ri ght Arm] 122/85 Blood Pressure [or thostatic sitting Right Arm] 124/85 Blood Pressure [or thostatic standing Right Arm] 129/91 H Pulse Oximetry 97 Oxygen Delivery Me thod Room Air Course Vital Signs Vital signs: Initial Vital Signs Temperature 98.7 F 01/05/24 08:26 Temperature Source Temporal Artery Scan 01/05/24 08:26 Pulse Rate 79 01/05/24 08:26 Pulse Rhythm Regular 01/05/24 08:26 Respiratory Rate 14 01/05/24 08:26 Blood Pressure 111/79 01/05/24 08:26 Blood Pressure Mean 89 01/05/24 08:26 Blood Pressure Position Supine 01/05/24 08:26 Pulse Oximetry 97 01/05/24 08:26 Oxygen Delivery Method Room Air 01/05/24 08:26 Vital Signs Temperature 98.7 F 01/05/24 08:26 Pulse Rate 79 01/05/24 08:26 Respiratory Rate 14 01/05/24 08:26 Blood Pressure 111/79 01/05/24 08:26 Pulse Oximetry 97 01/05/24 08:26 Oxygen Delivery Method Room Air 01/05/24 08:26 Temperature 98.7 F 01/05/24 08:26 Pulse Rate 73 01/05/24 09:25 Respiratory Rate 14 01/05/24 08:26 Blood Pressure 122/85 01/05/24 09:25 Pulse Oximetry 97 01/05/24 08:26 Oxygen Delivery Method Room Air 01/05/24 08:26 Medications Administered Medications: Discontinued Medications Generic Name Dose Route Start Last Admin Trade Name Freq PRN Reason Stop Dose Admin Sodium Chloride 1,000 mls @ 6,000 mls/hr 01/05/24 08:30 01/05/24 08:41 0.9 % Sodium Chloride 1000 Ml IV 01/05/24 08:39 2,000 mls/hr .Q10M KVNG Administration Medical Decision Making MDM Narrative Medical decision making narrative: 23-year-old female about 7 weeks estimated gestational age with a subchorionic hemorrhage with history of intermittent spotting, has had ultrasounds. At this point she has no increased bleeding, she had a lightheaded episode. Will check her labs, IV fluid, disposition pending findings. Will check what her vital signs and keep her on telemetry for brief period of time as well as get an EKG. Will need follow-up with OB in the next couple of days. Addendum 9:30 a.m. the patient continues to do well, she has normal hemodynamics, her EKG by my read shows normal sinus rhythm rightward axis but no acute ST T wave changes. The patient has reassuring laboratory studies including a negative CRP. At this point can let her go home rest fluids drink lots of water and rest, recommend recheck with her mid cortes in the next several days. Return to the ED problems or concerns. The patient had no orthostatics after her L of fluid of significance. Lab Data Labs: Lab Results 01/05/24 Range/Units 08:40 WBC 5.85 (4.50-11.00) K/uL RBC 4.44 (4.00-5.20) m/uL Hgb 13.6 (12.0-16.0) gm/dL Hct 39.4 (33.0-51.0) % MCV 89 (80-100) fL MCH 31 (26-34) pg MCHC 35 (32-36) gm/dL RDW Coeff of Chris 12.0 (11.5-15.5) % Plt Count 250 (140-440) K/uL Neut % (Auto) 59.8 (42.0-72.0) % Lymph % (Auto) 32.3 (20-44) % [place] % (Auto) 6.7 (0.0-11.0) % Eos % (Auto) 0.5 (0.0-7.0) % Baso % (Auto) 0.5 (0.0-3.0) % Neut # (Auto) 3.50 (1.7-7.0) K/uL Lymph # (Auto) 1.89 (0.90-2.90) K/uL [place] # (Auto) 0.40 (0.00-0.90) K/UL Eos # (Auto) 0.03 (0.00-0.50) K/uL Baso # (Auto) 0.03 (0.00-0.30) K/uL Abs Immat Gran (auto) 0.01 (0.00-0.30) K/uL Imm/Tot Granulo (auto) 0.2 % Sodium 138 (135-149) mmol/L Potassium 3.7 (3.6-5.1) mmol/L Chloride 106 (96-114) mmol/L Carbon Dioxide 24 (20-32) mmol/L Anion Gap 8 (7-15) mEq/L BUN 7 (5-24) mg/dL Creatinine 0.5 (0.5-1.5) mg/dL Estimated Creat Clear 144.07 Estimated GFR 136 ml/min Glucose 89 (60-115) mg/dL Calcium 9.8 (8.4-10.6) mg/dL C-Reactive Protein < 0.5 L (0.5-1.0) mg/dL Discharge Plan Discharge Clinical Impression: Light-headedness, Patient Disposition: Home w/ Parent or Adult Condition: Improved Additional Instructions: Light activity, fluids, eat regularly, follow-up with your combination worker provider in the next 2-3 days, return to ED sooner problems concerns worsening thanks Follow up appointment is scheduled at [facility] on [facility] with a 9:45am appointment time. If you have any questions or need to reschedule, please call [phone]. [facility] [address] [place] [address] Prescriptions: No Action ondansetron 4 mg tablet,disintegrating 4 mg PO Q6H PRN (Reason: nausea and vomiting) Qty: 12 0RF Classic 28 mg iron- 800 mcg tablet 1 tab PO QDAY PRN Nicotrol 10 mg cartridge 1 inh inhalation 4-6XD PRN (Reason: nicotine cravings) Qty: 168 0RF escitalopram oxalate [Lexapro] 10 mg tablet 10 mg PO QDAY Qty: 60 0RF Rx Instructions: Take 5 mg (1/2 tab) every day for 4 days, then increase to 10 mg (full tab) Follow Up/Referrals: Cynthia Henderson PA-C [Primary Care Provider] - Stand Alone Forms: [employer] Info Instructions
[2024-01-05] MEDS: 0.9 % SODIUM CHLORIDE 1000 ml 1,000 ML 2000 ML IV (08:41)
[2024-01-05 08:53] LABS: Basophils Absolute Auto 0.03 K/uL (0.00-0.30); Basophils Percent Auto 0.5 % (0.0-3.0); Eosinophils Absolute Auto 0.03 K/uL (0.00-0.50); Eosinophils Percent Auto 0.5 % (0.0-7.0); Hematocrit 39.4 % (33.0-51.0); Hemoglobin* 13.6 gm/dL (12.0-16.0); Immature Granulocytes Abs Auto 0.01 K/uL (0.00-0.30); Immature Granulocytes Pct Auto 0.2 %; Lymphocytes Absolute Auto 1.89 K/uL (0.90-2.90); Lymphocytes Percent Auto 32.3 % (20-44); Mean Corpuscular HGB Conc 35 gm/dL (32-36); Mean Corpuscular Hemoglobin 31 pg (26-34); Mean Corpuscular Volume 89 fL (80-100); Monocytes Percent Auto 6.7 % (0.0-11.0); Neutrophils Percent Auto 59.8 % (42.0-72.0); Platelet Count* 250 K/uL (140-440); Red Blood Count 4.44 m/uL (4.00-5.20); White Blood Count* 5.85 K/uL (4.50-11.00)
[2024-01-05 08:57] LABS: Slide Review Reflex No
[2024-01-05 09:08] LABS: Chloride* 106 mmol/L (96-114); Sodium* 138 mmol/L (135-149)
[2024-01-05 09:09] LABS: Potassium* 3.7 mmol/L (3.6-5.1)
[2024-01-05 09:11] LABS: Creatinine* 0.5 mg/dL (0.5-1.5); Est. Creatinine Clearance* 144.07; Estimated Glomerular Filt Rate 136 ml/min
[2024-01-05 09:12] LABS: Anion Gap 8 mEq/L (7-15); Blood Urea Nitrogen* 7 mg/dL (5-24); Calcium* 9.8 mg/dL (8.4-10.6); Carbon Dioxide* 24 mmol/L (20-32); Glucose* 89 mg/dL (60-115)
[2024-01-05 09:19] LABS: C Reactive Protein* < 0.5 mg/dL (0.5-1.0)
== END 2024-01-05 09:48 | disposition home or self-care (01) ==
PROVIDERS: Emergency Provider Family Medicine; PCP Physician Assistant Medical
DX: R42 Dizziness and giddiness (principal); Z33.1 Pregnant state, incidental
CPT/HCPCS: 36415; 80048; 85025; 86140; 93005; 99284; J7030

== ENCOUNTER 2024-01-08 15:21 | Emergency (ER) | payer OTHER, SELFPAY ==
--- NOTE | 2024-01-08 15:23 | ED.GENADULT ---
HPI - General Adult General Date Seen: 01/08/24 Chief complaint: Vaginal Bleeding Stated complaint: bleeding, clots, 8 wks preg Time Seen by Provider: 01/08/24 15:23 History of Present Illness HPI narrative: This is a 23-year-old female who is A2 , also anxiety (recently started Lexapro) returning to the ER for re-evaluation of vaginal bleeding with clots. She is approximately 7 weeks by dates. US pelvis 12/28/23 IMPRESSION: Normal early first trimester OB ultrasound exam. Gestational age calculated at 6 weeks 0 days with a sonographic due date of 08/22/2024. Blood type A positive She has been seen in the ER twice lately on 12/31 and again on 01/04. See notes below. She also follows with the midwives for her care. She saw her chucking machine operator most recently on 01/02, per that note, Az presented to clinic today per recommendation from ER provider. She reports she started having cramping and increase Vaginal bleeding last wednesday. She went to the E/R on Wednesday after she thought she was having another miscarriage. Her bleeding has reduced since yesterday and she's no more having uterine cramping. She is not bleeding today. But feels dizzy and lightheaded. She is drinking more fluids and has already drunk 30 oz of water within 5 hours. She is also eating 3 meals a day. She reports extreme anxiety with vaginal bleeding due to her hx of 2 marriages that happened around the same gestation. She is requesting Nicorett inhaler. Pt is also open to trying Lexapro to manage anxiety. Had extensive discussion on going to E/R if she suicidal ideations, worsening vaginal bleeding, dizziness and lightheaded. Plan to start at 5 mg for 4 days, then increase to 10 mg. CBC, HCG and TSH labs ordered. Return Visit in 2 wks 01/01/24 WBC 7.4, hemoglobin 13.9, platelet 261 Sodium 137, potassium 4.0, chloride 106, bicarb 21, BUN 12, creatinine 0.6 US Pelvis IMPRESSION: Redemonstration of a single live intrauterine gestation measuring 6 weeks 5 days with interval development of minimal subchorionic hemorrhage along the right lateral aspect of the gestational sac. 01/03/2024 Quantitative hCG 82455 TSH 0.49 01/04 WBC 5.8, hemoglobin 13.6, platelet 250 Sodium 138, potassium 3.7, bicarb 24, BUN 7, creatinine 0.5 CRP less than 0.5 She says that her recent bleeding has been more brownish blood. It had gotten better for the past couple of days since her most recent ER visit. This afternoon she began to to have your bright red bleeding. She is not having of tremendous volume of blood you she says all told, she has had blood clots, perhaps enough to soak 1 panty liner this afternoon. She is not lightheaded. She is having some mild bilateral pelvic cramping. She says it is so mild she would even take Tylenol for it. No unilateral pain. She notes that she was started on Lexapro a couple weeks ago by her chucking machine operator for anxiety. She took it for couple of days got very dizzy so stopped taking it. Since then her dizziness has resolved. She plans to see her chucking machine operator in checkup again this week and will revisit her anxiety and consider starting a new medication at that time. She has not had any other recent unusual bleeding or bruising. She is not on any blood thinners. No history of coagulopathy. She is very worried because she has had 2 previous miscarriages which manifested similarly to her bleeding today. Related Data Home Medications Medication Instructions Recorded Confirmed vits no.126-ferrous fum 1 tab PO QDAY PRN 12/28/23 01/03/24 28 mg iron-folic acid 800 mcg tablet (Classic ) Previous Rx's Medication Instructions Recorded ondansetron 4 mg disintegrating 4 mg PO Q6H PRN nausea and 09/07/23 tablet vomiting #12 tabs escitalopram oxalate 10 mg tablet 10 mg PO QDAY #60 tabs 01/03/24 (Lexapro) nicotine 10 mg inhalation 1 inh inhalation 4-6XD PRN 01/03/24 cartridge (Nicotrol) nicotine cravings #168 ea Allergies Allergy/AdvReac Type Severity Reaction Status Date / Time No Known Drug Allergies Allergy Verified 01/03/24 10:32 PFSH PFSH Medical History Irregular menstrual cycle ?N92.6 - Irregular menstruation, unspecified (ICD-10) Uses control ?Z78.9 - Other specified health status (ICD-10) Surgical History H/O dilation and curettage ?Z98.890 - Other specified postprocedural states (ICD-10) History of spinal fusion ?Z98.1 - Arthrodesis status (ICD-10) Family History Paternal Grandmother Breast cancer Paternal Grandfather Skin cancer Social History Narrative: SOCIAL Education: High school 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 Palmer; no medication currently Has a hard time with rationalizing, often spirals Significant NAKIA scores today Seat Belt Use: Routinely Smoking: Denies past/present; Cig stopped 2 years ago, using e cig. Alcohol/day: Denies while , rarely socially Caffeine: Monster 1x per day, but stopped for Drug Use: Denies past/present Smoking THC occasionally; declines UDS Chicken Pox: vaccinated MRSA: Denies What is your current living situation?: I presently have a place to live Problems where you live: no known problems In the past 12 months, utilities in danger of being shut off: no In past 12 months, lack of transportation kept you from medical appts, meetings, work, or getting things needed for daily living: no In the past 12 mos, have been you worried that your food would run out before you had money to buy more?: never true In the past 12 mos, the food you bought just didn't last and you didn't have money to buy more?: never true Smoking Status: Never smoker Do you use any of these nicotine containing products: None Second hand tobacco smoke exposure: No How often do you have a drink containing alcohol: never How often do you have six or more drinks on one occasion: Never AUDIT-C Alcohol total score: 0 Non-prescribed substance use: marijuana (any form) How often does anyone, including family, friends and others, physically hurt you: never How often does anyone, including family, friends and others, insult or talk down to you: never How often does anyone, including family, friends and others, threaten you with harm: never How often does anyone, including family, friends and others, scream or curse at you: never Little interest or pleasure in doing things: nearly every day Feeling down, depressed, or hopeless: several days service: No Exam Narrative: Exam Narrative: Constitutional: Appears well-developed and well-nourished. Alert. Conversant but tearful. Non toxic. HENT: Head: Atraumatic. Nose: Nose normal. Mouth/Throat: Oral mucosa is clear and moist. no trismus. Pharynx normal. Tonsils symmetric. No tonsillar enlargement, erythema, or exudate. Eyes: Conjunctivae normal. EOM normal. Pupils equal, round, and reactive to light. No scleral icterus. Neck: Normal range of motion. Neck supple. No tracheal deviation present. Cardiovascular: Normal rate, regular rhythm. No gallop. No friction rub. No murmur heard. Pulmonary/Chest: Effort normal. No stridor. No respiratory distress. No wheezes. No rales. No rhonchi . No tenderness. Abdominal: Soft. Bowel sounds normal. No distension. No mass. Uterus is not palpably enlarged. However with dates at just less than 8 weeks, would not expect to feel the fundus above the pubic bone yet. Mild bilateral pelvic tenderness. No rebound. No guarding. Musculoskeletal: RUE: Normal range of motion. No tenderness. No deformity LUE: Normal range of motion. No tenderness. No deformity RLE: Normal range of motion. No edema. No tenderness. No deformity LLE: Normal range of motion. No edema. No tenderness. No deformity Neurological: Alert and oriented to person, place, and time. Normal strength. CN II-VII intact. No sensory deficit. GCS eye subscore is 4. GCS verbal subscore is 5. GCS motor subscore is 6. Normal coordination Skin: Skin is warm and dry. No rash noted. No pallor. Normal capillary refill. Psychiatric: Normal mood. Normal affect. Const: Vital Signs, click to edit/add: Vital Signs - 24 hr 01/08/24 15:29 Temperature 98.1 F Pulse Rate [Pulse Oximeter] 135 H Respiratory Rate 28 H Blood Pressure [Ri ght Upper Arm] 134/82 Pulse Oximetry 98 Oxygen Delivery Me thod Room Air Course Vital Signs Vital signs: Initial Vital Signs Temperature 98.1 F 01/08/24 15:29 Temperature Source Temporal Artery Scan 01/08/24 15:29 Pulse Rate 135 H 01/08/24 15:29 Pulse Rhythm Regular 01/08/24 15:29 Respiratory Rate 28 H 01/08/24 15:29 Blood Pressure 134/82 01/08/24 15:29 Blood Pressure Mean 99 01/08/24 15:29 Blood Pressure Position Sitting 01/08/24 15:29 Pulse Oximetry 98 01/08/24 15:29 Oxygen Delivery Method Room Air 01/08/24 15:29 Vital Signs Temperature 98.1 F 01/08/24 15:29 Pulse Rate 135 H 01/08/24 15:29 Respiratory Rate 28 H 01/08/24 15:29 Blood Pressure 134/82 01/08/24 15:29 Pulse Oximetry 98 01/08/24 15:29 Oxygen Delivery Method Room Air 01/08/24 15:29 Temperature 98.1 F 01/08/24 15:29 Pulse Rate 135 H 01/08/24 15:29 Respiratory Rate 28 H 01/08/24 15:29 Blood Pressure 134/82 01/08/24 15:29 Pulse Oximetry 98 01/08/24 15:29 Oxygen Delivery Method Room Air 01/08/24 15:29 Medical Decision Making MDM Narrative Medical decision making narrative: This female patient presents for evaluation of vaginal bleeding with clots. She has had trouble recently with dark brown vaginal bleeding but today her bleeding changed and became more reddish with clots. She reported less than 1 pad of bleeding prior to arrival in bleeding is actually slack and while she is here in the ER and is now very light. She has already had 2 recent ultrasounds that confirm IUP and 1 of them showed a subchorionic hemorrhage. I considered a broad differential including ectopic , ovarian cyst, UTI, pyelonephritis, subchorionic hemorrhage, uterine bleeding, active miscarriage, constipation, etc. Non gynecologic causes considered included , appendicitis, cholecystitis, volvulus, intraabdominal abscess, among others. In this patient, there are no signs of serious etiologies of abdominal pain. The workup here suggests threatened miscarriage. ultrasound today confirms a live Charles IUP with a heart rate of 180. Previous subchorionic hemorrhage appears to have resolved. Quantitative [place] [address] to [address]. At this point, patient is hemodynamically stable, hemoglobin is reassuring, and bleeding is not predicted to become life threatening. Plan is home, close follow-up with OB, threatened miscarriage precautions, and return to ED for worsening pain, heavy vaginal bleeding (more than 1 pad soaked every hour). Questions were answered. Lab Data Labs: Lab Results 01/08/24 Range/Units 15:53 WBC 8.15 (4.50-11.00) K/uL RBC 4.44 (4.00-5.20) m/uL Hgb 13.6 (12.0-16.0) gm/dL Hct 39.7 (33.0-51.0) % MCV 89 (80-100) fL MCH 31 (26-34) pg MCHC 34 (32-36) gm/dL RDW Coeff of Chris 12.3 (11.5-15.5) % Plt Count 263 (140-440) K/uL Neut % (Auto) 70.9 (42.0-72.0) % Lymph % (Auto) 22.9 (20-44) % Seneca % (Auto) 4.7 (0.0-11.0) % Eos % (Auto) 0.4 (0.0-7.0) % Baso % (Auto) 0.2 (0.0-3.0) % Neut # (Auto) 5.78 (1.7-7.0) K/uL Lymph # (Auto) 1.87 (0.90-2.90) K/uL Seneca # (Auto) 0.40 (0.00-0.90) K/UL Eos # (Auto) 0.03 (0.00-0.50) K/uL Baso # (Auto) 0.02 (0.00-0.30) K/uL Abs Immat Gran (auto) 0.07 (0.00-0.30) K/uL Imm/Tot Granulo (auto) 0.9 % HCG, Quant 83184.00 mIU/mL Imaging Data US Pelvis: Attestation: I have reviewed the pertinent imaging results. Radiologist's impression: IMPRESSION: 1. Single living intrauterine gestation corresponding to a gestational age of 7 weeks 5 days with sonographic due date 08/21/2024. 2. The clinical gestational age by LMP is 7 weeks 3 days. 3. The previously seen subchorionic hemorrhage is no longer visualized. Discharge Plan Discharge Clinical Impression: , threatened Patient Disposition: Home, Self-Care Condition: Stable Instructions: Threatened Miscarriage (ED) Additional Instructions: As we discussed, please come back to the ER right away if you have any problems-especially come back away if you have worsening bleeding (soaking through more than 1 pad per hour for 2 hours or more) lightheadedness from blood loss or dizziness, severe pelvic cramping or pain, fever, or if you have any other concerns. Please follow-up with your OB or chucking machine operator this week as planned. Do not put anything in your vagina until your obstetric provider confirms that it is safe. Drink plenty of fluids. Stay hydrated. Light activity is okay but did not do strenuous exercise or heavy lifting. Use Tylenol if needed for pain. Avoid ibuprofen. Activity Level: No Restrictions Discharge Diet: Regular Prescriptions: No Action ondansetron 4 mg tablet,disintegrating 4 mg PO Q6H PRN (Reason: nausea and vomiting) Qty: 12 0RF Classic 28 mg iron- 800 mcg tablet 1 tab PO QDAY PRN Nicotrol 10 mg cartridge 1 inh inhalation 4-6XD PRN (Reason: nicotine cravings) Qty: 168 0RF escitalopram oxalate [Lexapro] 10 mg tablet 10 mg PO QDAY Qty: 60 0RF Rx Instructions: Take 5 mg (1/2 tab) every day for 4 days, then increase to 10 mg (full tab) Follow Up/Referrals: Cynthia Henderson PA-C [Primary Care Provider] - Stand Alone Forms: [facility] [employer] Info Instructions
[2024-01-08 15:29] VITALS: BP 134/82; PULSE 135; RESP 28; TEMP 36.7; O2SAT 98; BMI 16.9
--- NOTE | 2024-01-08 15:41 | US_ITS ---
Patient: ANA ROD Facility:?[facility] Patient ID:?[id number] Site Patient ID:?[id number]. Site :?2001 Study:?US-OB Pelvis OB TV-01/08/2024 4:39:41 PM Ordering Physician:?SEGUN HARRIS M.D. Final Report: INDICATION: Vaginal bleeding in early . LMP 11/17/2023. COMPARISON: OB ultrasound 01/01/2024. TECHNIQUE: Real-time chavez-scale imaging of the pelvis was performed. FINDINGS: Sonographic imaging demonstrates a single living intrauterine gestation. The embryo has a regular cardiac rate measuring 180 beats per minute. The embryo`s crown-rump length measures 1.4 cm which corresponds to a gestational age of 7 weeks 5 days with sonographic due date 08/21/2024. The yolk sac has a somewhat elongated irregular shape but is overall normal in size. The placenta has not yet developed. No evidence of a perigestational hemorrhage. Retroverted uterus. The cervix appears closed. The ovaries were not imaged. No free fluid in the pelvic cul-de-sac. IMPRESSION: 1. Single living intrauterine gestation corresponding to a gestational age of 7 weeks 5 days with sonographic due date 08/21/2024. 2. The clinical gestational age by LMP is 7 weeks 3 days. 3. The previously seen subchorionic hemorrhage is no longer visualized. Dictated by Anastasia Montez MD @ 01/08/2024 6:11:00 PM Signed by:?Anastasia Montez MD @01/08/2024 6:11:00 PM (Electronic Signature)
[2024-01-08 15:58] LABS: Basophils Absolute Auto 0.02 K/uL (0.00-0.30); Basophils Percent Auto 0.2 % (0.0-3.0); Eosinophils Absolute Auto 0.03 K/uL (0.00-0.50); Eosinophils Percent Auto 0.4 % (0.0-7.0); Hematocrit 39.7 % (33.0-51.0); Hemoglobin* 13.6 gm/dL (12.0-16.0); Immature Granulocytes Abs Auto 0.07 K/uL (0.00-0.30); Immature Granulocytes Pct Auto 0.9 %; Lymphocytes Absolute Auto 1.87 K/uL (0.90-2.90); Lymphocytes Percent Auto 22.9 % (20-44); Mean Corpuscular HGB Conc 34 gm/dL (32-36); Mean Corpuscular Hemoglobin 31 pg (26-34); Mean Corpuscular Volume 89 fL (80-100); Monocytes Percent Auto 4.7 % (0.0-11.0); Neutrophils Absolute Auto 5.78 K/uL (1.7-7.0); Neutrophils Percent Auto 70.9 % (42.0-72.0); Platelet Count* 263 K/uL (140-440); RDW Coefficient of Variation % 12.3 % (11.5-15.5); Red Blood Count 4.44 m/uL (4.00-5.20); White Blood Count* 8.15 K/uL (4.50-11.00)
[2024-01-08 16:01] LABS: Slide Review Reflex No
== END 2024-01-08 17:24 | disposition home or self-care (01) ==
PROVIDERS: Emergency Provider Emergency Medicine; PCP Physician Assistant Medical
DX: O20.0 Threatened abortion (principal); Z3A.01 Less than 8 weeks gestation of pregnancy
CPT/HCPCS: 36415; 76817; 84702; 85025; 99283; 99284

== ENCOUNTER 2024-01-10 10:38 | Outpatient (CLI) | payer OTHER, SELFPAY | END 2024-01-10 10:39 | disposition home or self-care (01) | PROVIDERS: PCP Physician Assistant Medical; Visit Provider Advanced Practice Midwife | DX: Z34.91 Encounter for supervision of normal pregnancy, unspecified, first trimester (principal); O20.9 Hemorrhage in early pregnancy, unspecified; Z3A.01 Less than 8 weeks gestation of pregnancy | CPT/HCPCS: 84702; 87086 ==

== ENCOUNTER 2024-01-19 11:40 | Outpatient (CLI) | payer OTHER, SELFPAY ==
--- NOTE | 2024-01-19 12:15 | US_ITS ---
Patient: ANA ROD Facility:?[facility] Patient ID:?[id number] Site Patient ID:?[id number] Site :?2001 Study:?US-OB Pelvis OB TV-01/19/2024 12:31:04 PM Ordering Physician:MARCEL CONNOLLY CNM Final Report: INDICATION: Threatened . COMPARISON: 01/08/2024, 01/01/2024, 12/28/2023. TECHNIQUE: Grayscale pelvic ultrasound via a transabdominal approach. FINDINGS: Gestational sac and number: 1 Sac size and shape: Normal shape. Small anterior. Gestational hemorrhage measuring less than 20 percent circumference of the gestational sac. Placenta: Not yet developed. Yolk sac: Present. Amniotic fluid: Subjectively normal. heart rate: Cessation of previously demonstrated embryonic cardiac activity. CRL: 2.1cm. US EGA: 8 weeks 5 days US DENISSE: 08/25/2024 Established DENISSE: 08/23/2024 Uterus: No significant uterine findings. Right ovary: Normal. Left ovary: Normal. IMPRESSION: Cessation of previously demonstrated embryonic cardiac activity diagnostic of early failure. Dictated by Salomón Garcia MD @ 01/19/2024 12:40:51 PM ----- ADDENDUM ----- ADDENDUM: The ordering provider, FRANCIS Fernandez, was notified of the results at 1245 hours RETAIL SERVICE SPECIALIST. Dictated by Salomón Garcia MD @ Jan 19 2024 12:48PM Signed by:?Salomón Garcia MD @01/19/2024 12:40:51 PM (Electronic Signature)
== END 2024-01-19 11:41 | disposition home or self-care (01) ==
LOC: US 11:40
PROVIDERS: PCP Physician Assistant Medical; Visit Provider Advanced Practice Midwife
DX: Z34.91 Encounter for supervision of normal pregnancy, unspecified, first trimester (principal); Z3A.09 9 weeks gestation of pregnancy
CPT/HCPCS: 76817

== ENCOUNTER 2024-01-20 10:04 | Day surgery (SDC) | payer OTHER, SELFPAY ==
[2024-01-20] VITALS (9 sets, daily range): BP systolic 78–117; BP diastolic 47–95; PULSE 57–112; RESP 16; TEMP 36.6–36.8; O2SAT 93–100; BMI 16.3
[2024-01-20] MEDS: DOXYCYCLINE HYCLATE 200 MG in 0.9 % SODIUM CHLORIDE 250 ml 250 ML 250 MG IVPB (10:30)
[2024-01-20] MEDS: SODIUM CHLORIDE 0.9 % (FLUSH) 10 ML SYRINGE IVF (10:30)
[2024-01-20] MEDS: LACTATED RINGERS 1000 ML 1,000 ML 100 ML IV ×2 (10:30→12:35)
[2024-01-20 10:45] LABS: Hemoglobin* 12.5 gm/dL (12.0-16.0)
--- NOTE | 2024-01-20 12:04 | W.PM.H&PU ---
History & Physical Update History & Physical Update H&P Reviewed and patient assessed: No changes noted
--- NOTE | 2024-01-20 12:05 | P.PCN_ITS ---
Procedure Note Time Seen by Provider: 12:41 Date Seen: 01/20/24 Date of procedure: 01/20/24 Will [facility] bill your pro fee for this procedure?: Yes Procedure: Preoperative diagnosis: Ronit is a 23-year-old 3 para 0030 with a missed at 8 and 5/7 weeks gestation by ultrasound. Postoperative diagnosis: Same Procedure: Suction curettage Anesthesia: Conscious sedation, paracervical block Surgeon: Angelia Flores MD Animal Trainer: Not applicable IV fluid: 1100 mL Estimated blood loss: 10 mL Specimen: Products of conception to cytogenetics and pathology Findings: On exam under anesthesia: the uterus was approximately 8-10 weeks size, mid position. Cervical os was closed without active bleeding. Adnexa were without mass or fullness palpable. The uterus sounded to 10 cm. On suction curettage there was a moderate to large amount of products of conception. Procedure: Ronit was taken to the operating room where conscious sedation was found to be adequate. She was placed in the dorsal lithotomy position and an exam under anesthesia was performed with with findings stated above. She was then prepped and draped in normal sterile manner. A bivalve speculum was placed in the vagina to visualize the cervix. A paracervical block was placed using 0.5% Marcaine: 5 mL injected at the 4 and 8 o'clock positions on the cervix. The anterior lip of the cervix was grasped with a single-tooth tenaculum clamp. The cervix was dilated to Hegar #8. A #8 curved curette was then advanced into the uterus without difficulty. A suction curettage was then performed using 40-50 mmHg pressure. 5 passes with the curette were performed to remove all visualized tissue. The curette was removed and mild, sharp curettage was performed to verify that all of the products of conception had been removed. One last pass with the curved curette was then made to verify that all of the tissue had been removed. The single-tooth tenaculum was removed from the anterior lip of the cervix. Silv er nitrate was needed to obtain hemostasis. Excellent hemostasis was noted. The speculum was then removed from the vagina. The patient tolerated this procedure well. Sponge, lap and instrument counts were correct x2 the end of the procedure. The patient was awakened from sedation and taken to the recovery area in stable condition. She received 200 mg IV doxycycline prior to the procedure.
[2024-01-20] MEDS: BUPIVACAINE 0.5% 30 ML INJECTION (12:37)
[2024-01-20] MEDS: SILVER NITRATE APPLICATOR 1 EACH STICK..EA. TOPICAL (12:37)
--- NOTE | 2024-01-20 12:53 | W.ANESCHARGE ---
Anesthesia Charges Start Date/Time Anesthesia Start Date: 01/20/24 Anesthesia Start Time: 12:15 Stop Date/Time Anesthesia Stop Date: 01/20/24 Anesthesia Stop Time: 12:53
[2024-01-20] MEDS: ePHEDrine sulfate 5 MG/ML inj IVP (13:02)
--- NOTE | 2024-01-20 13:16 | SUR.PHASEII ---
PAtient tearful. I want my baby. Patient's eyes remain closed. Patient provided calming essential oil patch.
[2024-01-20] MEDS: OXYCODONE 5 MG TABLET PO (13:41)
== END 2024-01-20 14:35 | disposition home or self-care (01) ==
PROVIDERS: PCP Physician Assistant Medical; Visit Provider Obstetrics & Gynecology
PROC: (CPT 59820; principal; 2024-01-20 11:30)
DX: O02.1 Missed abortion (principal); Z3A.08 8 weeks gestation of pregnancy
CPT/HCPCS: 59820; 00940; 36415; 81025; 85018; 86850; 86900; 86901; 88233; 88262; 88285; A9270; J0665; J1100; J2250; J2405; J2704; J3010; J7050; J7120

== ENCOUNTER 2024-02-02 09:05 | Outpatient (CLI) | payer OTHER, SELFPAY | END 2024-02-02 09:06 | disposition home or self-care (01) | PROVIDERS: PCP Physician Assistant Medical; Visit Provider Obstetrics & Gynecology | DX: N96 Recurrent pregnancy loss (principal) | CPT/HCPCS: 82232; 82947; 83001; 84439; 84443; 86147; 88262 ==

== ENCOUNTER 2024-02-07 13:49 | Outpatient (CLI) | payer OTHER, SELFPAY ==
--- NOTE | 2024-02-07 14:00 | US_ITS ---
Patient: ANA ROD Facility:?[facility] Patient ID:?[id number] Site Patient ID:?[id number]. Site :?2001 Study:?US-Pelvis TRANSABDOMINAL AND TRANSVAGINAL-02/07/2024 2:30:52 PM Ordering Physician:MARLENI ROSEN Final Report: Indication: Recurrent loss Technique: Real-time sonographic images of the pelvis were obtained transabdominally and transvaginally utilizing grayscale, color, and Doppler imaging. Comparison: None. Findings: Uterus: Appearance: Normal. Position: Anteverted. Size: 5.4 x 3.7 x 5.9 cm. Endometrial stripe: 17 mm. Complex appearance with associated vascularity. Right ovary: Size: 6.0 x 3.4 x 4.4 cm. Appearance: Normal morphology. Complex cysts measuring 4.1 x 3.2 x 3.6 centimeter and 3.4 x 2.8 x 3.7 centimeter. Left ovary: Size: 3.2 x 1.3 x 2.0 cm. Appearance: Normal morphology. No masses. Free fluid: Small amount of free fluid. Impression: 1. Thickened and complex endometrium with associated vascularity, which is concerning for retained products of conception. 2. Right ovarian complex cysts. Nonspecific cystic ovarian lesions suggestive of but not classic for hemorrhagic cyst, endometrioma or dermoid should be evaluated with repeat ultrasound in 6-12 weeks. If unchanged, hemorrhagic cyst would be unlikely, and continued follow-up with ultrasound or pelvic MRI would be recommended. Surgical consultation could also be considered for lesions that remain uncharacterized, particularly in postmenopausal patients. Adapted from Consensus Recommendations, Radiol:2010;[id number]. Dictated by Az Vital MD @ 02/07/2024 3:01:40 PM Signed by:?Az Vital MD @02/07/2024 3:01:40 PM (Electronic Signature
== END 2024-02-07 13:50 | disposition home or self-care (01) ==
LOC: US 13:50
PROVIDERS: PCP Physician Assistant Medical; Visit Provider Obstetrics & Gynecology
DX: N96 Recurrent pregnancy loss (principal); R93.89 Abnormal findings on diagnostic imaging of other specified body structures; N83.201 Unspecified ovarian cyst, right side
CPT/HCPCS: 76830; 76856; 87086; 93976

== ENCOUNTER 2024-02-08 12:22 | Day surgery (SDC) | payer OTHER, SELFPAY ==
[2024-02-08] MEDS: SODIUM CHLORIDE 0.9 % (FLUSH) 10 ML SYRINGE IVF (12:35)
[2024-02-08] MEDS: LACTATED RINGERS 1000 ML 1,000 ML 100 ML IV (12:35)
[2024-02-08 12:41] VITALS: BP 109/70; PULSE 84; RESP 16; TEMP 36.6; O2SAT 99; BMI 16.9
[2024-02-08] MEDS: CEFAZOLIN 2 GM INJ IVP (14:00)
--- NOTE | 2024-02-08 14:07 | W.ANESCHARGE ---
Anesthesia Charges Start Date/Time Anesthesia Start Date: 02/08/24 Anesthesia Start Time: 13:31 Stop Date/Time Anesthesia Stop Date: 02/08/24 Anesthesia Stop Time: 14:52
[2024-02-08] MEDS: CLINDAMYCIN 900 MG/50 ML-D5W 900 MG/50 ML PIGGYBACK 100 MG IVPB (14:08)
--- NOTE | 2024-02-08 14:10 | SUR.OPER ---
PATIENT QUESTIONS ANSWERED SATISFACTORILY PREOPERATIVELY. PATIENT BROUGHT TO OR #2 PER CART. Patient positioned supine on OR #2 bed for the induction. Pt. legs then moved into the lithotomy position for the procedure. Perioperative team supported arms bilaterally on arm boards. ? Final approval of positioning by surgeon.
[2024-02-08] MEDS: BUPIVACAINE 0.5% 30 ML 8 ML INJECTION (14:11)
--- NOTE | 2024-02-08 14:27 | W.ANESCHARGE ---
Anesthesia Charges Start Date/Time Anesthesia Start Date: 02/08/24 Anesthesia Start Time: 13:31 Stop Date/Time Anesthesia Stop Date: 02/08/24 Anesthesia Stop Time: 14:52
[2024-02-08 14:48] VITALS: BP 100/62; PULSE 100; RESP 16; TEMP 36.6; O2SAT 100
--- NOTE | 2024-02-08 14:54 | P.GYNPRC_ITS ---
Procedure Note Date of procedure: 02/08/24 Will [facility] bill your pro fee for this procedure?: Yes Pre-op diagnosis: Retained products of conception, suspected endometritis. Post-op diagnosis: Same, thick endometrial tissue-endometrial polyps? Procedure: Suction, dilation and curettage, Hysteroscopy and endometrial sampling. Anesthesia: MAC Complications: None Surgeon: Luiza Crow MD Estimated blood loss (mL): 10 IV fluids (mL): 500 Urine Output (mL): 50 Pathology: specimen obtained, sent to pathology (1. POC 2.Endometrial curettings) Condition: stable Disposition: floor Findings: Findings: Bimanual exam: Midline uterus of about 8cm, regular contour, no adnexal masses palpated. Speculum: Cervix looked closed, small amount of red blood noted from internal os, evidence of previous tenaculum placement at anterior cervical lip. Intrauterine cavity: Large amount of retained products of conception, thick and fluffy endometrium in general, polypoid? bilateral cornual openings seen. Uterine sound 7cm. Procedure Description: Patient was taken to the OR were MAC anesthesia was administered without difficulty. She was placed in the dorsal lithotomy position with Demetri type stirrups. Patient was then prepared and draped in the normal sterile fashion. An exam under anesthesia as described above. Her bladder was emptied with in--out catheter. A bivalved speculum was inserted in the posterior aspect of the vagina. 0.5% Marcaine was injected at 2 and 11 o'clock a total of about 5mL utilized. A single-tooth tenaculum was used to grasp the anterior lip of the cervix. The uterus was carefully sounded to 7 cm. The cervical os was sequentially dilated to accommodate the 5 mm TrueClear hysteroscope using Hegar dilators. A 5 mm 30 degree TrueClear hysteroscope was introduced under direct visualization, and the uterus was distended with normal saline. Findings as above. Due to the large amount of tissue noted, decision was made to utilize a suction curette first. A 7 mm suction curette was advanced to the uterine fundus. The suction was then started. The products of conception were evacuated with the curette rotating on the outward movement. This was performed twice, second time small amount of tissue obtained, mostly blood. I then re inserted the hysteroscope and there was still a large amount of this fluffy/polypoid tissue throughout all the arana of the endometrium and the Soft tissue incisor blade from TrueClear hysteroscope system was introduced under direct visualization and endometrial curettings performed with removal and sampling of all the intrauterine arana. Hysteroscope removed under direct visualization. Tenaculum was removed from the cervix and good hemostasis was noted at puncture sites. Patient tolerated the procedure well. Instrument and sponge counts were correct x2.We did give Ancef 2g and 900mg of Clindamycin at the start of procedure. Will order oral antibiotic therapy for endometritis treatment- outpatient. The patient was awakened from MAC anesthesia and taken to the recovery room in a stable condition. The patient will go home after recovering from anesthesia and meeting all the criteria for discharge. She was given instruction regarding follow-up visit in 2 weeks at [facility] and instructions for pain medication. Fluid deficit: 350 mL
[2024-02-08 15:00] VITALS: BP 109/71; PULSE 82; RESP 16; O2SAT 100
[2024-02-08 15:15] VITALS: BP 124/83; PULSE 67; RESP 16; O2SAT 100
[2024-02-08] MEDS: KETOROLAC 15 MG/ML inj IVP (15:20)
[2024-02-08 15:30] VITALS: BP 106/65; PULSE 57; RESP 16; O2SAT 100
[2024-02-08 15:47] VITALS: BP 110/65; PULSE 63; RESP 16; O2SAT 100
[2024-02-08] MEDS: ACETAMINOPHEN 500 MG TABLET 1000 MG PO (16:01)
== END 2024-02-08 16:04 | disposition home or self-care (01) ==
PROVIDERS: PCP Physician Assistant Medical; Visit Provider Obstetrics & Gynecology
PROC: 0UDB8ZZ Extraction of Endometrium, Via Natural or Artificial Opening Endoscopic (ICD-10-PCS; CPT 58558; principal; 2024-02-08 13:30)
DX: O03.4 Incomplete spontaneous abortion without complication (principal)
CPT/HCPCS: 59812; 00952; 88305; A9270; J0330; J0665; J0690; J0736; J1100; J1885; J2250; J2405; J2704; J3010; J7120

== ENCOUNTER 2024-04-26 14:37 | Outpatient (CLI) | payer OTHER, SELFPAY ==
--- OUTSIDE RECORDS SUMMARY | 2024-04-26 14:40 | XMS_ITS | Encounter Summary ---
Author Organization [facility] Address [address] [place] [id number] Care Team Providers Care Frame Trimmer Name Role Phone No Primary/Referring, Phy Primary Care Provider Unavailable Reason for Visit * Procedure/Equipment (Routine) - Incomplete Specialty Diagnoses / Procedures Referred By Contac t Referred To Contact Procedures CT Thoracic Spine WO IV Cont Kumar Lopez PA-C [address] [place] [address] Referral ID Status Reason Start Date Expiration Date V isits Requested Visits Authorized [id number] Incomplete 03/08/2024 06/07/2025 1 1 Encounter Details Date Type Department Care Team (Late st Contact Info) Description 03/08/2024 12:00 PM CDT Ancillary Procedure [facility] [address] [place], [place] [id number] Social History Tobacco Use Types Packs/Day Years Used Date Smoking Tobacco: Never Assessed Humiliation, Afraid, Rape, and Kick questionnair e Answer Date Recorded Fear of Current or Ex-Partner Not on file Emotionally Abused Not on file 03/08/2024 Within the last year, have y ou been kicked, hit, slapped, or otherwise physically hurt by your partner or ex-partner? No 03/08/2024 Within the last year, have y ou been raped or forced to have any kind of sexual activity by your partner or ex-partner? No 03/08/2024 Sex and Gender Information Value Date Recorded Sex Assigned at Not on file Gender Identity Not on file Sexual Orientation Not on file documented as of this encounter Plan of Treatment Not on file documented as of this encounter Procedures Procedure Name Priority Date/Time Associated Diagnosis Comments CT THORACIC SPINE WO IV CONT STAT 03/08/2024 1:27 PM CDT documented in this encounter Results * CT Thoracic Spine WO IV Cont (03/08/2024 1:27 PM CDT) Anatomical Region Laterality Modality Spine, T-Spine, Skeletal Compute d Tomography 03/08/2024 1:27 PM CDT Narrative 03/08/2024 1:36 PM CDT EXAM: CT THORACIC SPINE WO IV CONT LOCATION: [facility] DATE: 03/08/2024 INDICATION: Mid thoracic spinal fracture COMPARISON: None. TECHNIQUE: Routine CT Thoracic Spine without IV contrast. Multiplanar reformats. Dose reduction techniques were used. FINDINGS: VERTEBRA: 12 rib-bearing thoracic vertebrae. Normal thoracic kyphosis. No displaced fracture. Vertebral body heights are maintained. T4-L3 posterior fusion hardware is intact and well-positioned. No finding to suggest hardware complication. Solid posterior element fusion from T4 through L3. No instrumentation loosening or failure. No pseudarthrosis. CANAL/FORAMINA: No high grade spinal canal or neural foraminal stenosis. EXTRASPINAL: No extraspinal abnormality. IMPRESSION: 1. ??No instrumentation loosening or failure. 2. ??No acute fracture or posttraumatic fixation. 3. ??No high grade spinal canal or neural foraminal stenosis Procedure Note Maurilio Lentz MD - 03/08/2024 EXAM: CT THORACIC SPINE WO IV CONT LOCATION: [facility] DATE: 03/08/2024 INDICATION: Mid thoracic spinal fracture COMPARISON: None. TECHNIQUE: Routine CT Thoracic Spine without IV contrast. Multiplanarreformats. Dose reduction techniques were used. FINDINGS: VERTEBRA: 12 rib-bearing thoracic vertebrae. Normal thoracic kyphosis. Nodisplaced fracture. Vertebral body heights are maintained. T4-L3 posteriorfusion hardware is intact and well-positioned. No finding to suggesthardware complication. Solid posterior element fusion from T4 through L3.No instrumentation loosening or failure. No pseudarthrosis. CANAL/FORAMINA: No high grade spinal canal or neural foraminal stenosis. EXTRASPINAL: No extraspinal abnormality. IMPRESSION: 1. No instrumentation loosening or failure. 2. No acute fracture or posttraumatic fixation. 3. No high grade spinal canal or neural foraminal stenosis Kumar Lopez PA-C RAD CT documented in this encounter Visit Diagnoses Not on filedocumented in this encounter Care Teams Frame Trimmer Relationship Specialty Start Date End Date No Primary/Referring, Phy PCP - General 02/10/21 documented as of this encounter
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
--- OUTSIDE RECORDS SUMMARY | 2024-04-26 14:40 | XMS_ITS | Encounter Summary ---
Author Organization [facility] Address [address] [place] [address] Care Team Providers Care Recruiting Administrator Name Role Phone No Primary/Referring, Phy Primary Care Provider Unavailable Reason for Visit * Procedure/Equipment (Routine) - Incomplete Specialty Diagnoses / Procedures Referred By Contac t Referred To Contact Procedures CT Cervical Spine WO IV Cont Kumar Lopez PA-C [address] [place] [address] Referral ID Status Reason Start Date Expiration Date V isits Requested Visits Authorized [id number] Incomplete 03/08/2024 06/07/2025 1 1 Encounter Details Date Type Department Care Team (Late st Contact Info) Description 03/08/2024 11:55 AM CDT Ancillary Procedure [facility] [address] [place], [place] [id number] Social History Tobacco Use Types Packs/Day Years [...] Name Priority Date/Time Associated Diagnosis Comments CT CERVICAL SPINE WO IV CONT STAT 03/08/2024 1:27 PM CDT documented in this encounter Results * CT Cervical Spine WO IV Cont (03/08/2024 1:27 PM CDT) Anatomical Region Laterality Modality C-Spine, Spine Computed Tomogra phy 03/08/2024 1:27 PM CDT Narrative 03/08/2024 1:32 PM CDT EXAM: CT CERVICAL SPINE WO IV CONT LOCATION: [facility] DATE: 03/08/2024 INDICATION: [...] canal or neural foraminal stenosis. Procedure Note Maurilio Lentz MD - 03/08/2024 EXAM: CT CERVICAL [...] foraminal stenosis. Kumar Lopez PA-C RAD CT documented in this encounter Visit Diagnoses Not on filedocumented in this encounter Care Teams Recruiting Administrator Relationship Specialty Start Date End Date No Primary/Referring, Phy PCP - General 02/10/21 documented as of this encounter
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
[2024-04-26 19:07] LABS: Chlamydia DNA Amplified* NOT DETECTED (No Detected); GC DNA Amplified* NOT DETECTED (No Detected)
== END 2024-04-26 14:38 | disposition home or self-care (01) ==
PROVIDERS: PCP Physician Assistant Medical; Visit Provider Obstetrics & Gynecology
DX: R10.2 Pelvic and perineal pain (principal)
CPT/HCPCS: 76830; 87491; 87591

== ENCOUNTER 2024-06-07 11:31 | Outpatient (CLI) | payer OTHER, SELFPAY ==
--- OUTSIDE RECORDS SUMMARY | 2024-06-08 05:32 | XMS_ITS | Encounter Summary ---
Author Organization [facility] Address [address] [place] [address] Care Team Providers Care Ceramic Saw Tender Name Role Phone No Primary/Referring, Phy Primary Care Provider Unavailable Reason for Visit * Procedure/Equipment (Routine) - Incomplete Specialty Diagnoses / Procedures Referred By Contac t Referred To Contact Procedures CT Thoracic Spine WO IV Cont Kumar Lopez PA-C [address] [place] [address] Referral ID Status Reason Start Date Expiration Date V isits Requested Visits Authorized [id number] Incomplete 03/08/2024 06/07/2025 1 1 Encounter Details Date Type Department Care Team (Late st Contact Info) Description 03/08/2024 12:00 PM CDT Ancillary Procedure [facility] [address] [place], [place] [id number] Social History Tobacco Use Types Packs/Day Years [...] CT THORACIC SPINE WO IV CONT LOCATION: [facility] DATE: 03/08/2024 INDICATION: Mid thoracic [...] CT THORACIC SPINE WO IV CONT LOCATION: [facility] DATE: 03/08/2024 INDICATION: Mid thoracic spinal [...] grade spinal canal or neural foraminal stenosis Kumra Lopez PA-C RAD CT documented in this encounter Visit Diagnoses Not on filedocumented in this encounter Care Teams Ceramic Saw Tender Relationship Specialty Start Date End Date No Primary/Referring, Phy PCP - General 02/10/21 documented as of this encounter
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
--- OUTSIDE RECORDS SUMMARY | 2024-06-08 05:32 | XMS_ITS | Encounter Summary ---
Author Organization [facility] Address [address] [place] [address] Care Team Providers Care Cpo Name Role Phone No Primary/Referring, Phy Primary Care Provider Unavailable Reason for Visit * Procedure/Equipment (Routine) - Incomplete Specialty Diagnoses / Procedures Referred By Contac t Referred To Contact Procedures CT Cervical Spine WO IV Cont Kumar Lopez PA-C [address] [place] [address] Referral ID Status Reason Start Date Expiration Date V isits Requested Visits Authorized [id number] Incomplete 03/08/2024 06/07/2025 1 1 Encounter Details Date Type Department Care Team (Late st Contact Info) Description 03/08/2024 11:55 AM CDT Ancillary Procedure [facility] [address] [place], [place] [id number] Social History Tobacco Use Types Packs/Day Years [...] CT CERVICAL SPINE WO IV CONT LOCATION: [facility] DATE: 03/08/2024 INDICATION: Mid and upper [...] on filedocumented in this encounter Care Teams Cpo Relationship Specialty Start Date End Date No Primary/Referring, Phy PCP - General 02/10/21 documented as of this encounter
== END 2024-06-07 11:32 | disposition home or self-care (01) ==
LOC: NFLDREF 06-08 05:30
PROVIDERS: PCP Physician Assistant Medical; Referring Provider Physician Assistant Medical; Visit Provider Obstetrics & Gynecology
DX: E05.90 Thyrotoxicosis, unspecified without thyrotoxic crisis or storm (principal)
CPT/HCPCS: 84439; 84443; 84702

== ENCOUNTER 2024-06-08 18:46 | Emergency (ER) | payer OTHER, SELFPAY ==
[2024-06-08 18:52] VITALS: BP 107/68; PULSE 108; RESP 18; TEMP 37.7; O2SAT 97; BMI 16.9
[2024-06-08] MEDS: 0.9 % SODIUM CHLORIDE 1000 ml 1,000 ML IV ×2 (19:00→19:58)
[2024-06-08] MEDS: ONDANSETRON 2 MG/ML inj 4 MG IVP ×2 (19:00→20:34)
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
[2024-06-08 19:48] LABS: Lactate* 1.5 mmol/L (0.5-1.9)
[2024-06-08 19:52] LABS: Basophils Absolute Auto 0.02 K/uL (0.00-0.30); Basophils Percent Auto 0.3 % (0.0-3.0); Hematocrit 36.7 % (33.0-51.0); Hemoglobin* 12.8 gm/dL (12.0-16.0); Immature Granulocytes Abs Auto 0.01 K/uL (0.00-0.30); Immature Granulocytes Pct Auto 0.1 %; Lymphocytes Percent Auto 10.6 % (20-44); Mean Corpuscular HGB Conc 35 gm/dL (32-36); Mean Corpuscular Hemoglobin 30 pg (26-34); Mean Corpuscular Volume 87 fL (80-100); Monocytes Percent Auto 11.9 % (0.0-11.0); Neutrophils Percent Auto 77.1 % (42.0-72.0); Platelet Count* 207 K/uL (140-440); RDW Coefficient of Variation % 12.1 % (11.5-15.5); Red Blood Count 4.21 m/uL (4.00-5.20); White Blood Count* 7.96 K/uL (4.50-11.00)
[2024-06-08 20:00] LABS: Slide Review Reflex No
[2024-06-08 20:03] LABS: PCR FLU A Negative PCR FLU A (Negative); PCR FLU B Negative PCR FLU B (Negative); PCR RSV Negative PCR RSV (Negative); SARS PCR* Negative SARS-CoV-2 (Negative)
[2024-06-08 20:05] LABS: Albumin* 4.9 g/dL (3.3-5.0); Chloride* 104 mmol/L (96-114); Potassium* 3.6 mmol/L (3.6-5.1); Sodium* 135 mmol/L (135-149)
--- NOTE | 2024-06-08 20:05 | CRLHL7_ITS ---
For Patients: As a result of the Century Cures Act, medical imaging exams and procedure reports are released immediately into your electronic medical record. You may view this report before your referring provider. If you have questions, please contact your health care provider. INDICATION: Abnormal vaginal bleeding in early . TECHNIQUE: Transabdominal and transvaginal limited obstetric ultrasound examination of the pelvis was performed. Grayscale and color Doppler images were obtained. COMPARISON: Pelvic ultrasound 04/26/2024. FINDINGS: Uterus: Normal in echotexture. No suspicious masses. Endometrium: No significant endometrial free fluid. Intrauterine gestation: Yes. Mean sac diameter of 1.8 cm, compatible with an estimated gestational age of 6 weeks and 5 days. cardiac activity: Yes. 115 bpm. The [place]-rump length: 4 mm. Estimated gestational age of 6 weeks and 0 days. Yolk sac: Normal. Perigestational hemorrhage: No. Estimated sonographic due date: 02/01/2025. Right Ovary: Measures 3.9 x 2.6 x 2.5 cm. Corpus luteal cyst. No suspicious ovarian masses. Normal arterial and venous flow on color Doppler imaging. Left ovary: Measures 2.8 x 1.0 x 2.2 cm. No suspicious masses. Normal arterial and venous flow on color Doppler imaging. Cul-de-sac: No free fluid. IMPRESSION: Single viable intrauterine with estimated gestational age of 6 weeks and 0 days by crown-rump length, and estimated due date of 02/01/2025. Dictated by Bubba Bone MD @ 06/08/2024 9:14:39 PM (Electronically Signed)
[2024-06-08 20:07] LABS: Bilirubin Total* 0.8 mg/dL (0.1-1.5); Creatinine* 0.5 mg/dL (0.5-1.5); Est. Creatinine Clearance* 149.12; Estimated Glomerular Filt Rate 136 ml/min
[2024-06-08 20:08] LABS: Alanine Aminotransferase* 19 U/L (4-35); Alkaline Phosphatase* 61 U/L (40-150); Anion Gap 13 mEq/L (7-15); Aspartate Amino Transferase* 25 U/L (12-35); Blood Urea Nitrogen* 10 mg/dL (5-24); Calcium* 9.5 mg/dL (8.4-10.6); Carbon Dioxide* 18 mmol/L (20-32); Glucose* 89 mg/dL (60-115); Total Protein* 7.6 g/dL (6.0-8.3)
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
--- OUTSIDE RECORDS SUMMARY | 2024-06-08 20:16 | XMS_ITS | Encounter Summary ---
Author Organization [facility] Address [address] [place] [address] Care Team Providers Care Property Administrator Name Role Phone No Primary/Referring, Phy Primary Care Provider Unavailable Reason for Visit * Procedure/Equipment (Routine) - Incomplete Specialty Diagnoses / Procedures Referred By Contac t Referred To Contact Procedures CT Cervical Spine WO IV Cont Kumar Lopez PA-C [address] [place] [address] Referral ID Status Reason Start Date Expiration Date V isits Requested Visits Authorized [id number] Incomplete 03/08/2024 06/07/2025 1 1 Encounter Details Date Type Department Care Team (Late st Contact Info) Description 03/08/2024 11:55 AM CDT Ancillary Procedure [facility] [address] [place], [place] [phone] Social History Tobacco Use Types Packs/Day Years [...] on filedocumented in this encounter Care Teams Property Administrator Relationship Specialty Start Date End Date No Primary/Referring, Phy PCP - General 02/10/21 documented as of this encounter
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
[2024-06-08 20:31] LABS: Appearance Urine Clear (Clear); Bilirubin Urine 1+ (Negative); Blood Urine Trace-intact (Negative); Color Urine Yellow (Yellow); Glucose Urine Negative (Negative); Ketones Urine 4+ (Negative); Leukocyte Esterase Urine Negative (Negative); Nitrite Urine Negative (Negative); Protein Urine Trace (Negative); Specific Gravity Urine >= 1.030 (1.000-1.030); Urobilinogen Urine 0.2 (0.2-1.0)
[2024-06-08] MEDS: LACTATED RINGERS 1000 ML 1,000 ML 500 ML IV (21:03)
[2024-06-08 21:04] VITALS: PULSE 89; RESP 20; O2SAT 99
[2024-06-08 21:04] LABS: Bacteria Urine Few; Squamous Epithelial Cell Urine Few (None-Few)
[2024-06-08] MEDS: 10 % DEXTROSE 500 ML 500 ML IV (21:14)
[2024-06-08 22:07] VITALS: BP 92/52; PULSE 87; O2SAT 98
== END 2024-06-08 23:09 | disposition home or self-care (01) ==
PROVIDERS: Emergency Provider Family Medicine; PCP Physician Assistant Medical
DX: O21.9 Vomiting of pregnancy, unspecified (principal); E86.0 Dehydration
CPT/HCPCS: 36415; 76817; 80053; 81001; 83605; 85025; 87086; 87631; 96361; 96374; 96376; 99284; J2405; J7030; J7120

== ENCOUNTER 2024-06-09 18:16 | Emergency (ER) | payer OTHER, SELFPAY ==
[2024-06-09 18:33] VITALS: BP 117/79; PULSE 99; RESP 20; TEMP 37.3; O2SAT 99; BMI 17.2
--- NOTE | 2024-06-09 18:44 | CRLHL7_ITS ---
For Patients: As a result of the Century Cures Act, medical imaging exams and procedure reports are released immediately into your electronic medical record. You may view this report before your referring provider. If you have questions, please contact your health care provider. INDICATION: Bleeding. TECHNIQUE: Ultrasound OB pelvis transabdominal and transvaginal. Real-time chavez-scale imaging of the pelvis was performed. COMPARISON: June 09, 2024.. FINDINGS: There is a single intrauterine gestation. The embryo demonstrates a regular cardiac rate measuring 119 beats per minute. The embryo`s crown rump length measurement of 0.39 cm corresponds to a gestational age of 6 weeks, 1 day with a sonographic due date of 02/01/2025. There is a normal appearing yolk sac. There are no gross abnormalities noted within the embryo at this early state of development. The placenta has not yet developed. Persistent 1.9 x 0.9 x 0.4 centimeter subchorionic hemorrhage. The ovaries are of normal size. Incidental 2.4 centimeter right corpus luteal cyst. Small volume free fluid in the cul-de-sac, measuring 2.9 centimeters. IMPRESSION: Single viable intrauterine with gestational age of 6 weeks, 1 days based on crown-rump length. Persistent 1.9 x 0.9 x 0.4 centimeter subchorionic hemorrhage (previously measuring 1.1 x 0.8 x 1.1 centimeters, differences possibly related to technique). Dictated by Carlos Boothe MD @ 06/09/2024 8:54:09 PM (Electronically Signed)
--- NOTE | 2024-06-09 18:45 | ED.GENADULT ---
HPI - General Adult General Chief complaint: Vaginal Bleeding Stated complaint: possible miscarriage Time Seen by Provider: 06/09/24 18:18 Source: patient Mode of arrival: ambulatory Limitations: no limitations History of Present Illness HPI narrative: 23-year-old female, , around 6 weeks coming in today with vaginal bleeding. Patient was seen yesterday for dehydration. Was feeling better today. Got home for more can bleeding started. Patient states she had bleeding for about an hour, has soaked through pad as well as her pains since then. She states she is having mild cramping but no debilitating abdominal pain. Her blood work was reviewed from yesterday, there was no evidence of infection noted. She did have 4+ ketones in her urine. HCG levels on 06/07 for just over 20,000. Patient had an ultrasound this afternoon which showed a single living intrauterine at 6 weeks gestation with a subchorionic hemorrhage measuring 1.1 x 0.8 x 1.1 cm. Related Data Previous Rx's ?Medication ?Instructions ?Recorded diphenhydramine HCl 50 mg capsule 50 mg PO QHS PRN nausea and 06/09/24 (Unisom SleepGels) vomiting #60 caps docosahexaenoic acid 200 mg 200 mg PO DAILY #90 caps 06/09/24 capsule ( DHA) ondansetron 4 mg disintegrating 4 mg PO Q8H PRN nausea and 06/09/24 tablet vomiting #30 tabs vitamins no.119-iron 1 tab PO DAILY #90 tabs 06/09/24 fumarate 29 mg-folic acid 1 mg tablet pyridoxine (vitamin B6) 50 mg 50 mg PO BID nausea #120 tabs 06/09/24 tablet Allergies Allergy/AdvReac Type Severity Reaction Status Date / Time No Known Drug Allergies Allergy Verified 06/09/24 13:46 Review of Systems Status of ROS: Reports: 10 or more systems reviewed and unremarkable except as noted in History and below PFSH PFSH Medical History Uterine polyp ?N84.0 - Polyp of corpus uteri (ICD-10) 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) ?M41.119 - Juvenile idiopathic scoliosis, site unspecified (ICD-10) Seizure-like activity ?R56.9 - Unspecified convulsions (ICD-10) Severe anxiety ?F41.9 - Anxiety disorder, unspecified (ICD-10) Recurrent loss ?N96 - Recurrent loss (ICD-10) Endometritis ?N71.9 - Inflammatory disease of uterus, unspecified (ICD-10) Subclinical hyperthyroidism ?E05.90 - Thyrotoxicosis, unspecified without thyrotoxic crisis or storm (ICD-10) Migraine headache ?G43.909 - Migraine, unspecified, not intractable, without status migrainosus (ICD-10) Light-headedness ?R42 - Dizziness and giddiness (ICD-10) Irregular menstrual cycle ?N92.6 - Irregular menstruation, unspecified (ICD-10) Uses control ?Z78.9 - Other specified health status (ICD-10) Surgical History H/O dilation and curettage ?Z98.890 - Other specified postprocedural states (ICD-10) History of spinal fusion ?Z98.1 - Arthrodesis status (ICD-10) Family History Paternal Grandmother Breast cancer Paternal Grandfather Skin cancer Social History Narrative: SOCIAL Education: High school 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 Palmer; no medication currently Has a hard time with rationalizing, often spirals Significant NAKIA scores today Seat Belt Use: Routinely Smoking: Denies past/present; Cig stopped 2 years ago, using e cig. Alcohol/day: Denies while , rarely socially Caffeine: Monster 1x per day, but stopped for Drug Use: Denies past/present Smoking THC occasionally; declines UDS Chicken Pox: vaccinated MRSA: Denies What is your current living situation?: I presently have a place to live Problems where you live: no known problems In the past 12 months, utilities in danger of being shut off: no In past 12 months, lack of transportation kept you from medical appts, meetings, work, or getting things needed for daily living: no In the past 12 mos, have been you worried that your food would run out before you had money to buy more?: never true In the past 12 mos, the food you bought just didn't last and you didn't have money to buy more?: never true Smoking Status: Current every day smoker Do you use any of these nicotine containing products: E-Cigarettes Second hand tobacco smoke exposure: No How often do you have a drink containing alcohol: never How often do you have six or more drinks on one occasion: Never AUDIT-C Alcohol total score: 0 Non-prescribed substance use: marijuana (any form) Caffeine: No How often does anyone, including family, friends and others, physically hurt you: never How often does anyone, including family, friends and others, insult or talk down to you: never How often does anyone, including family, friends and others, threaten you with harm: never How often does anyone, including family, friends and others, scream or curse at you: never Little interest or pleasure in doing things: more than half the days Feeling down, depressed, or hopeless: more than half the days service: No Exam Narrative: Exam Narrative: Well-nourished well-developed patient, distraught and tearful. Alert and oriented. Answers questions appropriately. HEENT: Normocephalic atraumatic. Pupils are equally round reactive to light. Extraocular muscles are intact. Conjunctivae are moist without any icterus noted. Moist mucous membranes. Cardiovascular: Heart is regular rate and rhythm S1 and S2 are present without any murmurs. Lungs: Clear to auscultation bilaterally no wheezes rhonchi or rales are appreciated. Patient takes deep breaths without any discomfort. Abdomen: Soft and nontender nondistended with normal bowel sounds. No guarding or rebound. Extremities: Bilateral lower extremities are without edema. Skin: Well perfused without any obvious rashes. Const: Vital Signs, click to edit/add: Vital Signs - 24 hr 06/09/24 18:33 Temperature 99.2 F Pulse Rate [Pulse Oximeter] 99 Respiratory Rate 20 Blood Pressure [Ri ght Upper Arm] 117/79 Pulse Oximetry 99 Oxygen Delivery Me thod Room Air Course Course ED Course: 23-year-old female with a probable miscarriage. We will check blood type, hemoglobin levels, hCG levels and get an ultrasound ordered. CBC shows a hemoglobin of 11.9 down from 12.8 yesterday. HCG levels continue to rise from 20,351 2 days ago to 25,159 today. Ultrasound results show a single intrauterine with no noted abnormalities. Subchorionic hemorrhage slightly changed in size but could be due to technique. Within the time in the ER her bleeding has become spotting. Vital Signs Vital signs: Initial Vital Signs Temperature 99.2 F 06/09/24 18:33 Temperature Source Temporal Artery Scan 06/09/24 18:33 Pulse Rate 99 06/09/24 18:33 Respiratory Rate 20 06/09/24 18:33 Blood Pressure 117/79 06/09/24 18:33 Blood Pressure Mean 91 06/09/24 18:33 Blood Pressure Position Sitting 06/09/24 18:33 Pulse Oximetry 99 06/09/24 18:33 Oxygen Delivery Method Room Air 06/09/24 18:33 Vital Signs Temperature 99.2 F 06/09/24 18:33 Pulse Rate 99 06/09/24 18:33 Respiratory Rate 20 06/09/24 18:33 Blood Pressure 117/79 06/09/24 18:33 Pulse Oximetry 99 06/09/24 18:33 Oxygen Delivery Method Room Air 06/09/24 18:33 Temperature 99.2 F 06/09/24 18:33 Pulse Rate 99 06/09/24 18:33 Respiratory Rate 20 06/09/24 18:33 Blood Pressure 117/79 06/09/24 18:33 Pulse Oximetry 99 06/09/24 18:33 Oxygen Delivery Method Room Air 06/09/24 18:33 Medical Decision Making MDM Narrative Medical decision making narrative: 23-year-old at 6 weeks gestation with vaginal bleeding which has now slowed down. Unclear if this is just her subchorionic hemorrhage. Follow-up with OBGYN. Lab Data Lab results reviewed: Yes I reviewed the patient's lab results Labs: Lab Results 06/09/24 Range/Units 19:00 WBC 4.28 L (4.50-11.00) K/uL RBC 3.94 L (4.00-5.20) m/uL Hgb 11.9 L (12.0-16.0) gm/dL Hct 34.6 (33.0-51.0) % MCV 88 (80-100) fL MCH 30 (26-34) pg MCHC 34 (32-36) gm/dL RDW Coeff of Chris 12.2 (11.5-15.5) % Plt Count 164 (140-440) K/uL Neut % (Auto) 60.4 (42.0-72.0) % Lymph % (Auto) 25.2 (20-44) % Humphreys % (Auto) 13.8 H (0.0-11.0) % Eos % (Auto) 0.2 (0.0-7.0) % Baso % (Auto) 0.2 (0.0-3.0) % Neut # (Auto) 2.60 (1.7-7.0) K/uL Lymph # (Auto) 1.10 (0.90-2.90) K/uL Humphreys # (Auto) 0.60 (0.00-0.90) K/UL Eos # (Auto) 0.00 (0.00-0.50) K/uL Baso # (Auto) 0.00 (0.00-0.30) K/uL Abs Immat Gran (auto) 0.00 (0.00-0.30) K/uL Imm/Tot Granulo (auto) 0.2 % HCG, Quant 29373.00 mIU/mL Imaging Data US - abdomen: Attestation: I have reviewed the pertinent imaging results. Radiologist's impression: Ultrasound OB pelvis transabdominal and transvaginal. Real-time chavez-scale imaging of the pelvis was performed. COMPARISON: June 09, 2024.. FINDINGS: There is a single intrauterine gestation. The embryo demonstrates a regular cardiac rate measuring 119 beats per minute. The embryo`s crown rump length measurement of 0.39 cm corresponds to a gestational age of 6 weeks, 1 day with a sonographic due date of 02/01/2025. There is a normal appearing yolk sac. There are no gross abnormalities noted within the embryo at this early state of development. The placenta has not yet developed. Persistent 1.9 x 0.9 x 0.4 centimeter subchorionic hemorrhage. The ovaries are of normal size. Incidental 2.4 centimeter right corpus luteal cyst. Small volume free fluid in the cul-de-sac, measuring 2.9 centimeters. IMPRESSION: Single viable intrauterine with gestational age of 6 weeks, 1 days based on crown-rump length. Persistent 1.9 x 0.9 x 0.4 centimeter subchorionic hemorrhage (previously measuring 1.1 x 0.8 x 1.1 centimeters, differences possibly related to technique). Discharge Plan Discharge Clinical Impression: Vaginal bleeding affecting early Patient Disposition: Home, Self-Care Condition: Stable Additional Instructions: Follow-up with OBGYN. Prescriptions: No Action DHA 200 mg capsule 200 mg PO DAILY Qty: 90 3RF PNV 119-iron fum-folic acid 29 mg iron- 1 mg tablet 1 tab PO DAILY Qty: 90 3RF pyridoxine (vitamin B6) 50 mg tablet 50 mg PO BID Qty: 120 3RF diphenhydramine HCl [Unisom SleepGels] 50 mg capsule 50 mg PO QHS PRN (Reason: nausea and vomiting) Qty: 60 0RF ondansetron 4 mg tablet,disintegrating 4 mg PO Q8H PRN (Reason: nausea and vomiting) Qty: 30 0RF Follow Up/Referrals: Cynthia Henderson PA-C [Primary Care Provider] - Stand Alone Forms: CaseReader Info Instructions
[2024-06-09 19:07] LABS: Basophils Percent Auto 0.2 % (0.0-3.0); Eosinophils Percent Auto 0.2 % (0.0-7.0); Hematocrit 34.6 % (33.0-51.0); Hemoglobin* 11.9 gm/dL (12.0-16.0); Immature Granulocytes Pct Auto 0.2 %; Lymphocytes Percent Auto 25.2 % (20-44); Mean Corpuscular HGB Conc 34 gm/dL (32-36); Mean Corpuscular Hemoglobin 30 pg (26-34); Mean Corpuscular Volume 88 fL (80-100); Monocytes Percent Auto 13.8 % (0.0-11.0); Neutrophils Percent Auto 60.4 % (42.0-72.0); Platelet Count* 164 K/uL (140-440); RDW Coefficient of Variation % 12.2 % (11.5-15.5); Red Blood Count 3.94 m/uL (4.00-5.20); White Blood Count* 4.28 K/uL (4.50-11.00)
[2024-06-09 19:09] LABS: Slide Review Reflex No
--- OUTSIDE RECORDS SUMMARY | 2024-06-09 19:39 | XMS_ITS | Encounter Summary ---
Author Organization [facility] Address [address] [place] [id number] Care Team Providers Care Cocktail Waitress Name Role Phone No Primary/Referring, Phy Primary Care Provider Unavailable Reason for Visit * Procedure/Equipment (Routine) - Incomplete Specialty Diagnoses / Procedures Referred By Contac t Referred To Contact Procedures CT Cervical Spine WO IV Cont Kumar Lopez PA-C [address] [place] [address] Referral ID Status Reason Start Date Expiration Date V isits Requested Visits Authorized [id number] Incomplete 03/08/2024 06/07/2025 1 1 Encounter Details Date Type Department Care Team (Late st Contact Info) Description 03/08/2024 11:55 AM CDT Ancillary Procedure [facility] [address] [place], [place] [id number] Social History Tobacco Use Types Packs/Day Years [...] on filedocumented in this encounter Care Teams Cocktail Waitress Relationship Specialty Start Date End Date No Primary/Referring, Phy PCP - General 02/10/21 documented as of this encounter
--- OUTSIDE RECORDS SUMMARY | 2024-06-09 19:39 | XMS_ITS | Clinical Summary ---
Author Organization [facility] Address [address] [place] [address] Care Team Providers Care Utilities Equipment Repairer Name Role Phone No Primary/Referring, Phy Primary Care Provider Unavailable Source Comments You are receiving this document as you are listed as the primary care provider,follow-up provider, or the patient has been referred to you for consultation.This is in compliance with the Medicare and[facility] EHR Incentive Program,which states Providers who transition their patient to another setting of careor provider of care or refers their patient to another provider of care shouldprovide summary care record for each transition of care or referral. [employer] Allergies Active Allergy Reactions Criticality Noted Date Comments Droperidol Other, see comments 02/11/2021 Akithisia reaction (received 2.5mg while claustrophobic in MRI and had significant reaction requiring diphenhydramine) Medications Medication Sig Dispensed Refills Start Date End Date Status cyclobenzaprine (FLEXERIL) 5 MG tablet Take 1-2 Tablets (5-10 mg) by mouth two times daily as needed for Muscle Spasms. 20 Tablet 03/08/2024 Active Social History Tobacco Use Types Packs/Day Years [...] 12/06/2006, Additional history exists COVID-19 Vaccine ( - 2022- season) 2023 Influenza (#1) 2024 08/02/2014, 07/29/2011 Zoster/Shingles (1 of 2) 2051 Hib Completed 12/06/2002, 03/18, 01/30/2002 Pneumococcal Aged Out 05/18/2003, 05/18, 04/03/2002, Additional history exists No longer eligible based on patient's age to complete this topic IPV (Polio) Completed 12/06/2006, 05/18, 04/03/2002, Additional history exists HepA Completed 12/25/2013, 06/09/2013 MCV4 Completed 04/18/2018, 06/09/2013 Care Teams Utilities Equipment Repairer Relationship Specialty Start Date End Date No Primary/Referring, Phy PCP - General 02/10/21
--- OUTSIDE RECORDS SUMMARY | 2024-06-09 19:39 | XMS_ITS | Encounter Summary ---
Author Organization [facility] Address [address] [place] [id number] Care Team Providers Care Garment Manufacturing Supervisor Name Role Phone No Primary/Referring, Phy Primary Care Provider Unavailable Reason for Visit * Procedure/Equipment (Routine) - Incomplete Specialty Diagnoses / Procedures Referred By Contac t Referred To Contact Procedures CT Thoracic Spine WO IV Cont Kumar Lopez PA-C [address] [place] [address] Referral ID Status Reason Start Date Expiration Date V isits Requested Visits Authorized [id number] Incomplete 03/08/2024 06/07/2025 1 1 Encounter Details Date Type Department Care Team (Late st Contact Info) Description 03/08/2024 12:00 PM CDT Ancillary Procedure [facility] [address] [place], [place] [id number] Social History Tobacco Use Types Packs/Day Years [...] CT THORACIC SPINE WO IV CONT LOCATION: [facility] DATE: 03/08/2024 INDICATION: Mid thoracic spinal [...] CT THORACIC SPINE WO IV CONT LOC[facility]: [facility] DATE: 03/08/2024 INDICATION: Mid [...] on filedocumented in this encounter Care Teams Garment Manufacturing Supervisor Relationship Specialty Start Date End Date No Primary/Referring, Phy PCP - General 02/10/21 documented as of this encounter
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
== END 2024-06-09 21:10 | disposition home or self-care (01) ==
PROVIDERS: Emergency Provider Family Medicine; PCP Physician Assistant Medical
DX: O20.9 Hemorrhage in early pregnancy, unspecified (principal); Z3A.01 Less than 8 weeks gestation of pregnancy
CPT/HCPCS: 36415; 76817; 84702; 85025; 86592; 86703; 86704; 86706; 86762; 86787; 86803; 86850; 86900; 86901; 87086; 87340; 87491; 87591; 99283; 99284

== ENCOUNTER 2024-06-11 11:59 | Emergency (ER) | payer OTHER, SELFPAY ==
[2024-06-11 12:11] VITALS: BP 146/90; PULSE 108; RESP 18; TEMP 36.9; O2SAT 97; BMI 17.2
--- NOTE | 2024-06-11 12:20 | ED_ITS ---
HPI - General Adult General Date Seen: 06/11/24 Chief complaint: Weakness Stated complaint: 6wks , lightheaded/weakness Time Seen by Provider: 06/11/24 12:20 History of Present Illness HPI narrative: This 23-year-old female who is with 3 previous miscarriages presenting to the ER today with a complex set of symptoms. She has been having experiencing vaginal bleeding and spotting since Wednesday. She had been in the clinic for her 1st ultrasound Wednesday morning and that 2nd ultrasound on Wednesday while after bleeding started, completed here in the ER. Since then she has had ongoing vaginal spotting much overall signal manager than what we she was experiencing on Wednesday. She is concerned about another miscarriage since she has had miscarriages with her 3 previous pregnancies. She also notes that she has had trouble with nausea and vomiting during her 1st trimester of this with a lot of nausea vomiting earlier this week. She was given a prescription for some Zofran but does not like taking it because when she tries left the tablet dissolve in her mouth the taste makes her more nauseous. She has not been vomiting is much the past couple of days but overall has been eating less food and drinking less than she should. She is not making as much urine as she would like to. Also today she began to develop more dizziness. She was getting up and walking down the stairs when her legs get very shaky. She then subsequently developed some flashing wiggling lights in her eyes and then a left temporal headache that was mild. She has no fall. No neck stiffness. No fever or chills. She came to the ER because she is overall feeling weak and shaky. Ultrasound in the ER 06/09/2024 (obtained during ER visit after she started having vaginal bleeding) IMPRESSION: Single viable intrauterine with gestational age of 6 weeks, 1 days based on crown-rump length. Persistent 1.9 x 0.9 x 0.4 centimeter subchorionic hemorrhage (previously measuring 1.1 x 0.8 x 1.1 centimeters, differences possibly related to technique). Labs from ER showed hemoglobin of 11.9. HCG quant was 25,159, up from 20,351 on 06/07. Blood type A positive Ultrasound in clinic morning of 06/09/2024. She had presented to clinic for her new OB check. Unknown LMP. IMPRESSION: Single living intrauterine with sonographic gestational age 6 weeks 0 days and sonographic due date 02/02/2025. Subchorionic hemorrhage measures 1.1 x 0.8 x 1.1 cm. Related Data Previous Rx's ?Medication ?Instructions ?Recorded diphenhydramine HCl 50 mg capsule 50 mg PO QHS PRN nausea and 06/09/24 (Unisom SleepGels) vomiting #60 caps docosahexaenoic acid 200 mg 200 mg PO DAILY #90 caps 06/09/24 capsule ( DHA) ondansetron 4 mg disintegrating 4 mg PO Q8H PRN nausea and 06/09/24 tablet vomiting #30 tabs vitamins no.119-iron 1 tab PO DAILY #90 tabs 06/09/24 fumarate 29 mg-folic acid 1 mg tablet pyridoxine (vitamin B6) 50 mg 50 mg PO BID nausea #120 tabs 06/09/24 tablet metoclopramide HCl 10 mg tablet 10 mg PO Q6H PRN nausea and 06/11/24 (Reglan) vomiting #14 tabs progesterone micronized 200 mg 200 mg vaginal QHS 5 weeks #35 caps 06/12/24 capsule Allergies Allergy/AdvReac Type Severity Reaction Status Date / Time No Known Drug Allergies Allergy Verified 06/09/24 13:46 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) ?M41.119 - Juvenile idiopathic scoliosis, site unspecified (ICD-10) Seizure-like activity ?R56.9 - Unspecified convulsions (ICD-10) Severe anxiety ?F41.9 - Anxiety disorder, unspecified (ICD-10) Endometritis ?N71.9 - Inflammatory disease of uterus, unspecified (ICD-10) Subclinical hyperthyroidism ?E05.90 - Thyrotoxicosis, unspecified without thyrotoxic crisis or storm (ICD-10) Migraine headache ?G43.909 - Migraine, unspecified, not intractable, without status migrainosus (ICD-10) Light-headedness ?R42 - Dizziness and giddiness (ICD-10) Irregular menstrual cycle ?N92.6 - Irregular menstruation, unspecified (ICD-10) Uses control ?Z78.9 - Other specified health status (ICD-10) Surgical History H/O dilation and curettage ?Z98.890 - Other specified postprocedural states (ICD-10) History of spinal fusion ?Z98.1 - Arthrodesis status (ICD-10) Family History Paternal Grandmother Breast cancer Paternal Grandfather Skin cancer Social History Narrative: SOCIAL Education: High school 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 Palmer; no medication currently Has a hard time with rationalizing, often spirals Significant NAKIA scores today Seat Belt Use: Routinely Smoking: Denies past/present; Cig stopped 2 years ago, using e cig. Alcohol/day: Denies while , rarely socially Caffeine: Monster 1x per day, but stopped for Drug Use: Denies past/present Smoking THC occasionally; declines UDS Chicken Pox: vaccinated MRSA: Denies What is your current living situation?: I presently have a place to live Problems where you live: no known problems In the past 12 months, utilities in danger of being shut off: no In past 12 months, lack of transportation kept you from medical appts, meetings, work, or getting things needed for daily living: no In the past 12 mos, have been you worried that your food would run out before you had money to buy more?: never true In the past 12 mos, the food you bought just didn't last and you didn't have money to buy more?: never true Smoking Status: Current every day smoker Do you use any of these nicotine containing products: E-Cigarettes Second hand tobacco smoke exposure: No How often do you have a drink containing alcohol: never How often do you have six or more drinks on one occasion: Never AUDIT-C Alcohol total score: 0 Non-prescribed substance use: marijuana (any form) Caffeine: No How often does anyone, including family, friends and others, physically hurt you : never How often does anyone, including family, friends and others, insult or talk down to you: never How often does anyone, including family, friends and others, threaten you with harm: never How often does anyone, including family, friends and others, scream or curse at you: never Little interest or pleasure in doing things: more than half the days Feeling down, depressed, or hopeless: more than half the days service: No Exam Narrative: Exam Narrative: Constitutional: Appears well-developed and well-nourished. Alert. Conversant, but does look visibly anxious and worried. Accompanied by her friend who is very supportive. Overall the patient is Non toxic. HENT: Head: Atraumatic. No depressed skull fracture, Raccoon Eyes, Bermudez's sign, or hemotympanum. Face normal. TMs normal Nose: Nose normal. Mouth/Throat: Oral mucosa is clear and moist. no trismus. Pharynx normal. Tonsils symmetric. No tonsillar enlargement, erythema, or exudate. Eyes: Conjunctivae normal. EOM normal. Pupils equal, round, and reactive to light. No scleral icterus. Neck: Normal range of motion. Neck supple. No tracheal deviation present. Cardiovascular: Normal rate, regular rhythm. No gallop. No friction rub. No murmur heard. Symmetric radial artery pulses Pulmonary/Chest: Effort normal. No stridor. No respiratory distress. No wheezes. No rales. No rhonchi . No tenderness. Abdominal: Soft. Bowel sounds normal. No distension. No mass. No palpable uterine enlargement. No tenderness. No rebound. No guarding. No CVA tenderness. Musculoskeletal: RUE: Normal range of motion. No tenderness. No deformity LUE: Normal range of motion. No tenderness. No deformity RLE: Normal range of motion. No edema. No tenderness. No deformity LLE: Normal range of motion. No edema. No tenderness. No deformity Lymph: No cervical adenopathy. Neurological: Mental status normal. Attention normal. Alert and oriented x3. GCS 15. Memory normal. Speech fluent. Cognition normal. Cranial Nerves intact II-XII except I did not formally test gag or visual acuity. Visual heard full. EOMI. Palate elevates symmetrically and tongue protrudes in the midline. Strength: 5/5 trapezius on the right and left 5/5 deltoid on the right and left 5/5 biceps on the right and left 5/5 triceps on the right and left 5/5 pulmonary function technologist on the right and left 5/5 thumb opposition on the right and le ft 5/5 finger abduction on the right and le ft 5/5 hip flexors (L3) on the right and le ft 5/5 quadriceps (L4) on the right and lef t 5/5 tibialis anterior on the right and l eft 5/5 EHL (L5) on the right and left 5/5 gastrocnemius (S1) on the right and left 5/5 hamstring on the right and left Sensation intact to light touch in both upper extremities (C4-T1) Sensation intact to light touch in Both lower extremities (L4-S1). coordination normal. Gait normal. Skin: Skin is warm and dry. No rash noted. No pallor. Normal capillary refill. Psychiatric: Normal mood. Normal affect. Const: Vital Signs, click to edit/add: Vital Signs - 24 hr 06/11/24 12:11 06/11/24 13:34 Temperature 98.4 F Pulse Rate [Pulse Oximeter] 108 H 60 Respiratory Rate 18 14 Blood Pressure [Ri ght Upper Arm] 146/90 H 102/62 Pulse Oximetry 97 98 Oxygen Delivery Me thod Room Air Room Air Course Vital Signs Vital signs: Initial Vital Signs Temperature 98.4 F 06/11/24 12:11 Temperature Source Temporal Artery Scan 06/11/24 12:11 Pulse Rate 108 H 06/11/24 12:11 Respiratory Rate 18 06/11/24 12:11 Blood Pressure 146/90 H 06/11/24 12:11 Blood Pressure Mean 108 H 06/11/24 12:11 Pulse Oximetry 97 06/11/24 12:11 Oxygen Delivery Method Room Air 06/11/24 12:11 Vital Signs Temperature 98.4 F 06/11/24 12:11 Pulse Rate 108 H 06/11/24 12:11 Respiratory Rate 18 06/11/24 12:11 Blood Pressure 146/90 H 06/11/24 12:11 Pulse Oximetry 97 06/11/24 12:11 Oxygen Delivery Method Room Air 06/11/24 12:11 Temperature 98.4 F 06/11/24 12:11 Pulse Rate 60 06/11/24 13:34 Respiratory Rate 14 06/11/24 13:34 Blood Pressure 102/62 06/11/24 13:34 Pulse Oximetry 98 06/11/24 13:34 Oxygen Delivery Method Room Air 06/11/24 13:34 Medications Administered Medications: Discontinued Medications Generic Name Dose Route Start Last Admin Trade Name Justina PRN Reason Stop Dose Admin Acetaminophen 1,000 mg 06/11/24 12:55 06/11/24 13:16 Acetaminophen 500 Mg Tablet PO 06/11/24 12:56 1,000 mg ONCE ONE Administration Diphenhydramine HCl 12.5 mg 06/11/24 12:55 06/11/24 13:16 Diphenhydramine 50 Mg/Ml Inj IVP 06/11/24 12:56 12.5 mg ONCE ONE Administration Metoclopramide HCl 10 mg 06/11/24 12:55 06/11/24 13:16 Metoclopramide Hcl 5 Mg/Ml Inj IVP 06/11/24 12:56 10 mg ONCE ONE Administration Medical Decision Making MDM Narrative Medical decision making narrative: This female patient presents for evaluation of multiple concerns. She is with 3 previous miscarriages, now about 6 weeks . She has had vaginal bleeding and spotting for the past several days. Previous ultrasounds have confirmed a viable Charles IUP with a small subchorionic hemorrhage. She has ongoing bleeding but overall signal manager today than it had been on when she was in the ER on Wednesday. Repeat HCT days rising up to 32,000. Repeat ultrasound confirms viability of the baby and still with the subchorionic measuring 1.1 cm. She is blood type A positive. Hemoglobin remained stable and normal at 13.3. Numb thrombocytopenia. No other unusual bleeding or bruising to raise concern for coagulopathy. No evidence for ectopic or adnexal abnormality on this ultrasound or prior. She has also been feeling very dizzy and lightheaded today. She is also developing a wiggling visual scotomata associated with a left temporal headache. Further neurologic symptoms differential is broad including stroke, preeclampsia, dural sinus thrombosis, among others. No recent trauma. No fever or chills or neck stiffness suggest infection. Clinical exam and history are highly suggestive that this headache is probably migraine with aura. Treated with meds here in the ER. She had good improvement is now feeling much better. She actually apologized for coming back to the ER, now feeling that she probably was anxious, dehydrated. I reassured her and I am glad that she is feeling better after meds and fluids. She has also had a lot of trouble with nausea and vomiting up patella past few days where she is still nauseous but able to keep more food and fluids down. Clinically she does appear to be dehydrated. Bicarb mildly low at 19, similar to when she was in the ER 3 days ago for dehydration. IV fluids administered. She will continue to push fluids at home. She notes that she does not like the taste of the dissolving Zofran 0 DT. Recommended that she could just swallow the tablet at his own she does not vomited up it would be effective if ingested rather than dissolved. The workup here suggests threatened miscarriage. There is a stable subchorionic hemorrhage. At this point, patient is hemodynamically stable, hemoglobin is reassuring, and bleeding is not predicted to become life threatening. Plan is home, close follow-up with OB, threatened miscarriage precautions, and return to ED for worsening pain, heavy vaginal bleeding (more than 1 pad soaked every hour). Questions were answered. I called on-call OB, Dr. Bone. Discussed the case with her. Dr. Bone will help arrange outpatient follow-up in the OB clinic within a couple of days. Return precautions reviewed. Questions answered to the best my ability. Lab Data Labs: Lab Results 06/11/24 06/11/24 Range/Units 12:40 14:32 WBC 6.10 (4.50-11.00) K/uL RBC 4.39 (4.00-5.20) m/uL Hgb 13.3 (12.0-16.0) gm/dL Hct 38.3 (33.0-51.0) % MCV 87 (80-100) fL MCH 30 (26-34) pg MCHC 35 (32-36) gm/dL RDW Coeff of Chris 11.8 (11.5-15.5) % Plt Count 227 (140-440) K/uL Neut % (Auto) 61.9 (42.0-72.0) % Lymph % (Auto) 31.5 (20-44) % Tillman % (Auto) 5.9 (0.0-11.0) % Eos % (Auto) 0.2 (0.0-7.0) % Baso % (Auto) 0.3 (0.0-3.0) % Neut # (Auto) 3.78 (1.7-7.0) K/uL Lymph # (Auto) 1.92 (0.90-2.90) K/uL Tillman # (Auto) 0.40 (0.00-0.90) K/UL Eos # (Auto) 0.01 (0.00-0.50) K/uL Baso # (Auto) 0.02 (0.00-0.30) K/uL Abs Immat Gran (auto) 0.01 (0.00-0.30) K/uL Imm/Tot Granulo (auto) 0.2 % Sodium 136 (135-149) mmol/L Potassium 3.6 (3.6-5.1) mmol/L Chloride 104 (96-114) mmol/L Carbon Dioxide 19 L (20-32) mmol/L Anion Gap 13 (7-15) mEq/L BUN 9 (5-24) mg/dL Creatinine 0.5 (0.5-1.5) mg/dL Estimated Creat Clear 151.65 Estimated GFR 136 ml/min Glucose 73 (60-115) mg/dL Lactate 0.9 (0.5-1.9) mmol/L Calcium 9.3 (8.4-10.6) mg/dL HCG, Quant 42191.00 mIU/mL Urine Color Yellow (Yellow) Urine Appearance Clear (Clear) Urine pH 6.0 (5.0-8.5) Ur Specific [place] >= 1.030 (1.000-1.030) Urine Protein 2+ A (Negative) Urine Glucose (UA) Negative (Negative) Urine Ketones 4+ A (Negative) Urine Blood 2+ A (Negative) Urine Nitrite Negative (Negative) Urine Bilirubin Negative (Negative) Urine Urobilinogen 0.2 (0.2-1.0) Ur Leukocyte Esterase Negative (Negative) Urine RBC 0-2 (0-2) Urine WBC 10-25 A (0-5) Urine WBC Clumps None (None) Ur Squamous Epith Cells Moderate A (None-Few) Urine Bacteria Moderate A (None) Urine Mucus Many A (None) Imaging Data US pelvic: Attestation: I have reviewed the pertinent imaging results. Radiologist's impression: IMPRESSION: Single viable intrauterine with gestational age of 6 weeks, 4 days based on crown-rump length. No abnormalities seen. Incidental 1.1 centimeter left subchorionic hemorrhage. This could be followed up with on subsequent imaging. Discharge Plan Discharge Clinical Impression: Miscarriage, threatened, early , Dehydration, Headache, Nausea, Visual field scotoma Patient Disposition: Home, Self-Care Condition: Stable Instructions: Threatened Miscarriage (ED), Dehydration (ED), Acute Headache (DC) Additional Instructions: The [facility] OB clinic will call you tomorrow to arrange an ER follow-up visit and recheck this week. If you do not receive a phone call from the clinic tomorrow by noon, you can call them to schedule your own ER follow-up visit. Please come back to the ER right away if you have any concerns. Especially watch out for and come back if you have heavier bleeding, worsening pelvic pain, worsening nausea or vomiting, dehydration, weakness, or fever. Use Zofran if needed for nausea. Alternatively, you can use Reglan instead. It is okay use Tylenol if needed for headache. Avoid ibuprofen. Drink plenty of fluids and try to eat a healthy diet. Prescriptions: New metoclopramide HCl [Reglan] 10 mg tablet 10 mg PO Q6H PRN (Reason: nausea and vomiting) Qty: 14 0RF No Action DHA 200 mg capsule 200 mg PO DAILY Qty: 90 3RF PNV 119-iron fum-folic acid 29 mg iron- 1 mg tablet 1 tab PO DAILY Qty: 90 3RF pyridoxine (vitamin B6) 50 mg tablet 50 mg PO BID Qty: 120 3RF diphenhydramine HCl [Unisom SleepGels] 50 mg capsule 50 mg PO QHS PRN (Reason: nausea and vomiting) Qty: 60 0RF ondansetron 4 mg tablet,disintegrating 4 mg PO Q8H PRN (Reason: nausea and vomiting) Qty: 30 0RF progesterone micronized 200 mg capsule 200 mg vaginal QHS 35 Days Qty: 35 1RF Rx Instructions: Place 1 cap vaginal at night daily until 16 weeks gestation. Follow Up/Referrals: Lybarger,Cynthia J, PA-C [Primary Care Provider] - Stand Alone Forms: [facility] Info Instructions
--- NOTE | 2024-06-11 12:55 | CRLHL7_ITS ---
For Patients: As a result of the Cures Act, medical imaging exams and procedure reports are released immediately into your electronic medical record. You may view this report before your referring provider. If you have questions, please contact your health care provider. INDICATION: Bleeding in 1st trimester. TECHNIQUE: Ultrasound OB pelvis transabdominal and transvaginal. Real-time chavez-scale imaging of the pelvis was performed. COMPARISON: None. FINDINGS: There is a single intrauterine gestation. The embryo demonstrates a regular cardiac rate measuring 120 beats per minute. The embryo`s crown rump length measurement of 0.7 cm corresponds to a gestational age of 6 weeks, 4 days with a sonographic due date of 01/31/2025. There is a normal appearing yolk sac. There are no gross abnormalities noted within the embryo at this early state of development. The placenta has not yet developed. Tiny 1.1 centimeter subchorionic hemorrhage. The ovaries are of normal size. Tiny right corpus luteal cyst. There are no suspicious fluid collections noted in the cul-de-sac. IMPRESSION: Single viable intrauterine with gestational age of 6 weeks, 4 days based on crown-rump length. No abnormalities seen. Incidental 1.1 centimeter left subchorionic hemorrhage. This could be followed up with on subsequent imaging. Dictated by Carlos Boothe MD @ 06/11/2024 2:02:11 PM (Electronically Signed)
--- OUTSIDE RECORDS SUMMARY | 2024-06-11 13:04 | XMS_ITS | Clinical Summary ---
Author Organization [facility] Address [address] [place] [id number] Care Team Providers Care Alloy Weigher Name Role Phone No Primary/Referring, Phy Primary Care Provider Unavailable Source Comments You are receiving this document as you are listed as the primary care provider,follow-up provider, or the patient has been referred to you for consultation.This is in compliance with the Medicare and[facility] EHR Incentive Program,which states Providers who transition their patient to another setting of careor provider of care or refers their patient to another provider of care shouldprovide summary care record for each transition of care or referral. [employer] Allergies Active Allergy Reactions Criticality Noted Date [...] 06/09/2013 MCV4 Completed 04/18/2018, 06/09/2013 Care Teams Alloy Weigher Relationship Specialty Start Date End Date No Primary/Referring, Phy PCP - General 02/10/21
--- OUTSIDE RECORDS SUMMARY | 2024-06-11 13:04 | XMS_ITS | Encounter Summary ---
Author Organization [facility] Address [address] [place] [address] Care Team Providers Care Production Worker Name Role Phone No Primary/Referring, Phy Primary Care Provider Unavailable Reason for Visit * Procedure/Equipment (Routine) - Incomplete Specialty Diagnoses / Procedures Referred By Contac t Referred To Contact Procedures CT Thoracic Spine WO IV Cont Kumar Lopez PA-C [address] [place] [address] Referral ID Status Reason Start Date Expiration Date V isits Requested Visits Authorized [id number] Incomplete 03/08/2024 06/07/2025 1 1 Encounter Details Date Type Department Care Team (Late st Contact Info) Description 03/08/2024 12:00 PM CDT Ancillary Procedure [facility] [address] [place], [place] [id number] Social History Tobacco Use Types Packs/Day Years [...] CT THORACIC SPINE WO IV CONT LOCATION: [facility] DATE: 03/08/2024 INDICATION: Mid thoracic spinal [...] CT THORACIC SPINE WO IV CONT LOCATION: [facility] DATE: 03/08/2024 INDICATION: Mid thoracic [...] on filedocumented in this encounter Care Teams Production Worker Relationship Specialty Start Date End Date No Primary/Referring, Phy PCP - General 02/10/21 documented as of this encounter
--- OUTSIDE RECORDS SUMMARY | 2024-06-11 13:04 | XMS_ITS | Encounter Summary ---
Author Organization [facility] Address [address] [place] [address] Care Team Providers Care Hog Stomach Preparer Name Role Phone No Primary/Referring, Phy Primary Care Provider Unavailable Reason for Visit * Procedure/Equipment (Routine) - Incomplete Specialty Diagnoses / Procedures Referred By Contac t Referred To Contact Procedures CT Cervical Spine WO IV Cont Kumar Lopez PA-C [address] [place] [address] Referral ID Status Reason Start Date Expiration Date V isits Requested Visits Authorized [id number] Incomplete 03/08/2024 06/07/2025 1 1 Encounter Details Date Type Department Care Team (Late st Contact Info) Description 03/08/2024 11:55 AM CDT Ancillary Procedure [facility] [address] [place], [place] [phone] Social History Tobacco Use Types Packs/Day Years [...] CT CERVICAL SPINE WO IV CONT LOCATION: [facility] DATE: 03/08/2024 INDICATION: Mid [...] on filedocumented in this encounter Care Teams Hog Stomach Preparer Relationship Specialty Start Date End Date No Primary/Referring, Phy PCP - General 02/10/21 documented as of this encounter
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
[2024-06-11 13:10] LABS: Chloride* 104 mmol/L (96-114); Potassium* 3.6 mmol/L (3.6-5.1); Sodium* 136 mmol/L (135-149)
[2024-06-11 13:12] LABS: Creatinine* 0.5 mg/dL (0.5-1.5); Est. Creatinine Clearance* 151.65; Estimated Glomerular Filt Rate 136 ml/min
[2024-06-11 13:13] LABS: Anion Gap 13 mEq/L (7-15); Blood Urea Nitrogen* 9 mg/dL (5-24); Calcium* 9.3 mg/dL (8.4-10.6); Carbon Dioxide* 19 mmol/L (20-32); Glucose* 73 mg/dL (60-115)
[2024-06-11] MEDS: diphenhydrAMINE 50 MG/ML inj 12.5 MG IVP (13:16)
[2024-06-11] MEDS: ACETAMINOPHEN 500 MG TABLET 1000 MG PO (13:16)
[2024-06-11] MEDS: METOCLOPRAMIDE HCL 5 MG/ML INJ 10 MG IVP (13:16)
[2024-06-11 13:19] LABS: Lactate* 0.9 mmol/L (0.5-1.9)
[2024-06-11 13:26] LABS: Basophils Absolute Auto 0.02 K/uL (0.00-0.30); Basophils Percent Auto 0.3 % (0.0-3.0); Eosinophils Absolute Auto 0.01 K/uL (0.00-0.50); Eosinophils Percent Auto 0.2 % (0.0-7.0); Hematocrit 38.3 % (33.0-51.0); Hemoglobin* 13.3 gm/dL (12.0-16.0); Immature Granulocytes Abs Auto 0.01 K/uL (0.00-0.30); Immature Granulocytes Pct Auto 0.2 %; Lymphocytes Absolute Auto 1.92 K/uL (0.90-2.90); Lymphocytes Percent Auto 31.5 % (20-44); Mean Corpuscular HGB Conc 35 gm/dL (32-36); Mean Corpuscular Hemoglobin 30 pg (26-34); Mean Corpuscular Volume 87 fL (80-100); Monocytes Percent Auto 5.9 % (0.0-11.0); Neutrophils Absolute Auto 3.78 K/uL (1.7-7.0); Neutrophils Percent Auto 61.9 % (42.0-72.0); Platelet Count* 227 K/uL (140-440); RDW Coefficient of Variation % 11.8 % (11.5-15.5); Red Blood Count 4.39 m/uL (4.00-5.20)
[2024-06-11 13:34] VITALS: BP 102/62; PULSE 60; RESP 14; O2SAT 98
[2024-06-11 13:38] LABS: Slide Review Reflex No
[2024-06-11 14:38] LABS: Appearance Urine Clear (Clear); Bilirubin Urine Negative (Negative); Blood Urine 2+ (Negative); Color Urine Yellow (Yellow); Glucose Urine Negative (Negative); Ketones Urine 4+ (Negative); Leukocyte Esterase Urine Negative (Negative); Nitrite Urine Negative (Negative); Protein Urine 2+ (Negative); Specific Gravity Urine >= 1.030 (1.000-1.030); Urobilinogen Urine 0.2 (0.2-1.0)
[2024-06-11 14:48] LABS: Bacteria Urine Moderate; RBC Urine 0-2 (0-2); Squamous Epithelial Cell Urine Moderate (None-Few)
[2024-06-11 14:49] LABS: Mucus Urine Many
== END 2024-06-11 14:56 | disposition home or self-care (01) ==
PROVIDERS: Emergency Provider Emergency Medicine; PCP Physician Assistant Medical
DX: O03.9 Complete or unspecified spontaneous abortion without complication (principal); R51.9 Headache, unspecified; H53.42 Scotoma of blind spot area
CPT/HCPCS: 36415; 76817; 80048; 81001; 83605; 84702; 85025; 87086; 96374; 96375; 99284; A9270; J1200; J2765

== ENCOUNTER 2024-06-15 13:31 | Outpatient (CLI) | payer OTHER, SELFPAY ==
--- OUTSIDE RECORDS SUMMARY | 2024-06-17 23:13 | XMS_ITS | Clinical Summary ---
Author Organization [facility] Address [address] [place] [address] Care Team Providers Care Associate Data Scientist Name Role Phone No Primary/Referring, Phy Primary Care Provider Unavailable Source Comments You are receiving this document as you are listed as the primary care provider,follow-up provider, or the patient has been referred to you for consultation.This is in compliance with the Medicare and[facility] E[facility] Incentive [facility],which states Providers who transition their patient to another setting of careor provider of care or refers their patient to another provider of care shouldprovide summary care record for each transition of care or referral. [employer] Allergies Active Allergy Reactions Criticality Noted Date [...] 06/09/2013 MCV4 Completed 04/18/2018, 06/09/2013 Care Teams Associate Data Scientist Relationship Specialty Start Date End Date No Primary/Referring, Phy PCP - General 02/10/21
== END 2024-06-15 13:32 | disposition home or self-care (01) ==
LOC: NFLDREF 06-17 23:12
PROVIDERS: PCP Physician Assistant Medical; Referring Provider Physician Assistant Medical; Visit Provider Advanced Practice Midwife
DX: O20.9 Hemorrhage in early pregnancy, unspecified (principal)
CPT/HCPCS: 84702; 87086

== ENCOUNTER 2024-06-20 14:47 | Emergency (ER) | payer OTHER, SELFPAY ==
[2024-06-20 15:30] VITALS: BP 101/66; PULSE 87; RESP 16; TEMP 36.8; O2SAT 100; BMI 16.9
--- NOTE | 2024-06-20 15:49 | CRLHL7_ITS ---
For Patients: As a result of the Cures Act, medical imaging exams and procedure reports are released immediately into your electronic medical record. You may view this report before your referring provider. If you have questions, please contact your health care provider. INDICATION: Bleeding, spotting. TECHNIQUE: Ultrasound OB pelvis transabdominal. Real-time chavez-scale imaging of the pelvis was performed. COMPARISON: Obstetric ultrasound dated 06/11/2024. FINDINGS: Sonographic imaging demonstrates a single living intrauterine gestation. The embryo demonstrates a regular cardiac rate measuring 169 beats per minute. The embryo`s crown rump length measurement of 1.5 cm corresponds to a gestational age of 7 weeks, 6 days. There is a normal appearing yolk sac. There are no gross abnormalities noted within the embryo at this early state of development. The placenta has not yet developed. Small focus of subchorionic hemorrhage in the lower uterine body measuring 1.1 x 0.6 x 0.4 cm. Unremarkable appearance of the bilateral ovaries, with a small corpus luteum noted within the right ovary. Trace pelvic free fluid. IMPRESSION: 1. Single viable intrauterine with crown-rump length of 1.5 cm, corresponding to a gestational age of 7 weeks, 6 days. 2. Small focus of subchorionic hemorrhage in the lower uterine body measuring up to 1.1 cm, similar to prior study. Dictated by Gilberto Quigley MD @ 06/20/2024 6:46:38 PM (Electronically Signed)
--- NOTE | 2024-06-20 15:50 | ED_ITS ---
HPI - General Adult General Chief complaint: Vaginal Bleeding Stated complaint: 8 weeks, cramps,blood clots, Hx miscar Time Seen by Provider: 06/20/24 15:41 Source: patient Mode of arrival: ambulatory Limitations: no limitations History of Present Illness HPI narrative: 23-year-old female at approximately 8 weeks gestation presenting today with vaginal bleeding. Patient does have a known subchorionic hemorrhage and has had bleeding throughout the . However she states that last week she had 2 days without any bleeding and then the bleeding started again. She states that it is like a light menstrual period. She also has some small clots and mild cramping that have her quite concerned. She denies dizziness or lightheadedness. No chest or abdominal pain. appointment showed normal blood work. Patient is on progesterone therapy. Related Data Previous Rx's ?Medication ?Instructions ?Recorded diphenhydramine HCl 50 mg capsule 50 mg PO QHS PRN nausea and 06/09/24 (Unisom SleepGels) vomiting #60 caps docosahexaenoic acid 200 mg 200 mg PO DAILY #90 caps 06/09/24 capsule ( DHA) ondansetron 4 mg disintegrating 4 mg PO Q8H PRN nausea and 06/09/24 tablet vomiting #30 tabs vitamins no.119-iron 1 tab PO DAILY #90 tabs 06/09/24 fumarate 29 mg-folic acid 1 mg tablet pyridoxine (vitamin B6) 50 mg 50 mg PO BID nausea #120 tabs 06/09/24 tablet metoclopramide HCl 10 mg tablet 10 mg PO Q6H PRN nausea and 06/11/24 (Reglan) vomiting #14 tabs progesterone micronized 200 mg 200 mg vaginal QHS 5 weeks #35 caps 06/12/24 capsule Allergies Allergy/AdvReac Type Severity Reaction Status Date / Time No Known Drug Allergies Allergy Verified 06/20/24 15:34 Review of Systems Status of ROS: Reports: 10 or more systems reviewed and unremarkable except as noted in History and below 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) ?M41.119 - Juvenile idiopathic scoliosis, site unspecified (ICD-10) Seizure-like activity ?R56.9 - Unspecified convulsions (ICD-10) Severe anxiety ?F41.9 - Anxiety disorder, unspecified (ICD-10) Endometritis ?N71.9 - Inflammatory disease of uterus, unspecified (ICD-10) Subclinical hyperthyroidism ?E05.90 - Thyrotoxicosis, unspecified without thyrotoxic crisis or storm (ICD-10) Migraine headache ?G43.909 - Migraine, unspecified, not intractable, without status migrainosus (ICD-10) Light-headedness ?R42 - Dizziness and giddiness (ICD-10) Irregular menstrual cycle ?N92.6 - Irregular menstruation, unspecified (ICD-10) Uses control ?Z78.9 - Other specified health status (ICD-10) Surgical History H/O dilation and curettage ?Z98.890 - Other specified postprocedural states (ICD-10) History of spinal fusion ?Z98.1 - Arthrodesis status (ICD-10) Family History Paternal Grandmother Breast cancer Paternal Grandfather Skin cancer Social History Narrative: SOCIAL Education: High school 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 Palmer; no medication currently Has a hard time with rationalizing, often spirals Significant NAKIA scores today Seat Belt Use: Routinely Smoking: Denies past/present; Cig stopped 2 years ago, using e cig. Alcohol/day: Denies while , rarely socially Caffeine: Monster 1x per day, but stopped for Drug Use: Denies past/present Smoking THC occasionally; declines UDS Chicken Pox: vaccinated MRSA: Denies What is your current living situation?: I presently have a place to live Problems where you live: no known problems In the past 12 months, utilities in danger of being shut off: no In past 12 months, lack of transportation kept you from medical appts, meetings, work, or getting things needed for daily living: no In the past 12 mos, have been you worried that your food would run out before you had money to buy more?: never true In the past 12 mos, the food you bought just didn't last and you didn't have money to buy more?: never true Smoking Status: Former smoker Do you use any of these nicotine containing products: None Second hand tobacco smoke exposure: No How often do you have a drink containing alcohol: never How often do you have six or more drinks on one occasion: Never AUDIT-C Alcohol total score: 0 Non-prescribed substance use: marijuana (any form) Caffeine: No How often does anyone, including family, friends and others, physically hurt you : never How often does anyone, including family, friends and others, insult or talk down to you: never How often does anyone, including family, friends and others, threaten you with harm: never How often does anyone, including family, friends and others, scream or curse at you: never Little interest or pleasure in doing things: more than half the days Feeling down, depressed, or hopeless: more than half the days service: No Exam Narrative: Exam Narrative: Well-nourished well-developed patient in no acute distress. Alert and oriented. Answers questions appropriately. Mood and affect are appropriate. Thoughts are goal oriented and rational. No tangential or magical thinking noted. Patient speaks in full sentences without needing to catch her breath. HEENT: Normocephalic atraumatic. Pupils are equally round reactive to light. Extraocular muscles are intact. Conjunctivae are moist without any icterus noted. Moist mucous membranes. Cardiovascular: Heart is regular rate and rhythm. Lungs: Clear to auscultation bilaterally. Abdomen: Soft and nontender nondistended with normal bowel sounds. Extremities: Bilateral lower extremities are without edema. Skin: Well perfused without any obvious rashes. Const: Vital Signs, click to edit/add: Vital Signs - 24 hr 06/20/24 15:30 Temperature 98.3 F Pulse Rate [Pulse Oximeter] 87 Respiratory Rate 16 Blood Pressure [Ri ght Upper Arm] 101/66 Pulse Oximetry 100 Oxygen Delivery Me thod Room Air Course Course ED Course: Given her recurrence in bleeding and cramping we did go ahead and order u ltrasound. CBC unremarkable. HCG is going up appropriately. Ultrasound, per tech report, is unremarkable. Heart rate 169, IUP in place. Vital Signs Vital signs: Initial Vital Signs Temperature 98.3 F 06/20/24 15:30 Temperature Source Temporal Artery Scan 06/20/24 15:30 Pulse Rate 87 06/20/24 15:30 Respiratory Rate 16 06/20/24 15:30 Blood Pressure 101/66 06/20/24 15:30 Blood Pressure Mean 77 06/20/24 15:30 Blood Pressure Position Sitting 06/20/24 15:30 Pulse Oximetry 100 06/20/24 15:30 Oxygen Delivery Method Room Air 06/20/24 15:30 Vital Signs Temperature 98.3 F 06/20/24 15:30 Pulse Rate 87 06/20/24 15:30 Respiratory Rate 16 06/20/24 15:30 Blood Pressure 101/66 06/20/24 15:30 Pulse Oximetry 100 06/20/24 15:30 Oxygen Delivery Method Room Air 06/20/24 15:30 Temperature 98.3 F 06/20/24 15:30 Pulse Rate 87 06/20/24 15:30 Respiratory Rate 16 06/20/24 15:30 Blood Pressure 101/66 06/20/24 15:30 Pulse Oximetry 100 06/20/24 15:30 Oxygen Delivery Method Room Air 06/20/24 15:30 Medical Decision Making MDM Narrative Medical decision making narrative: 23-year-old female with vaginal bleeding in . Patient does have is subchorionic hemorrhage that is still present. Baby still appears healthy and hCG going up appropriately. Follow-up with OBGYN. Lab Data Lab results reviewed: Yes I reviewed the patient's lab results Labs: Lab Results 06/20/24 Range/Units 16:03 WBC 11.57 H (4.50-11.00) K/uL RBC 4.18 (4.00-5.20) m/uL Hgb 12.6 (12.0-16.0) gm/dL Hct 37.3 (33.0-51.0) % MCV 89 (80-100) fL MCH 30 (26-34) pg MCHC 34 (32-36) gm/dL RDW Coeff of Chris 12.7 (11.5-15.5) % Plt Count 247 (140-440) K/uL Neut % (Auto) 73.3 H (42.0-72.0) % Lymph % (Auto) 20.0 (20-44) % [place] % (Auto) 6.0 (0.0-11.0) % Eos % (Auto) 0.3 (0.0-7.0) % Baso % (Auto) 0.1 (0.0-3.0) % Neut # (Auto) 8.50 H (1.7-7.0) K/uL Lymph # (Auto) 2.30 (0.90-2.90) K/uL [place] # (Auto) 0.70 (0.00-0.90) K/UL Eos # (Auto) 0.00 (0.00-0.50) K/uL Baso # (Auto) 0.00 (0.00-0.30) K/uL Abs Immat Gran (auto) 0.00 (0.00-0.30) K/uL Imm/Tot Granulo (auto) 0.3 % HCG, Quant [id number] mIU/mL Imaging Data US - abdomen: Attestation: I have reviewed the pertinent imaging results. Radiologist's impression: Study:?US-OB Pelvis -06/20/2024 5:37:13 PM Ordering Physician:Vince Tejeda Final Report: INDICATION: Bleeding, spotting. TECHNIQUE: Ultrasound OB pelvis transabdominal. Real-time chavez-scale imaging of the pelvis was performed. COMPARISON: Obstetric ultrasound dated 06/11/2024. FINDINGS: Sonographic imaging demonstrates a single living intrauterine gestation. The embryo demonstrates a regular cardiac rate measuring 169 beats per minute. The embryo`s crown rump length measurement of 1.5 cm corresponds to a gestational age of 7 weeks, 6 days. There is a normal appearing yolk sac. There are no gross abnormalities noted within the embryo at this early state of development. The placenta has not yet developed. Small focus of subchorionic hemorrhage in the lower uterine body measuring 1.1 x 0.6 x 0.4 cm. Unremarkable appearance of the bilateral ovaries, with a small corpus luteum noted within the right ovary. Trace pelvic free fluid. IMPRESSION: 1. Single viable intrauterine with crown-rump length of 1.5 cm, corresponding to a gestational age of 7 weeks, 6 days. 2. Small focus of subchorionic hemorrhage in the lower uterine body measuring up to 1.1 cm, similar to prior study. Discharge Plan Discharge Clinical Impression: Vaginal bleeding affecting early Patient Disposition: Home, Self-Care Condition: Stable Additional Instructions: Follow-up with your OBGYN as scheduled. Prescriptions: No Action DHA 200 mg capsule 200 mg PO DAILY Qty: 90 3RF PNV 119-iron fum-folic acid 29 mg iron- 1 mg tablet 1 tab PO DAILY Qty: 90 3RF pyridoxine (vitamin B6) 50 mg tablet 50 mg PO BID Qty: 120 3RF diphenhydramine HCl [Unisom SleepGels] 50 mg capsule 50 mg PO QHS PRN (Reason: nausea and vomiting) Qty: 60 0RF ondansetron 4 mg tablet,disintegrating 4 mg PO Q8H PRN (Reason: nausea and vomiting) Qty: 30 0RF progesterone micronized 200 mg capsule 200 mg vaginal QHS 35 Days Qty: 35 1RF Rx Instructions: Place 1 cap vaginal at night daily until 16 weeks gestation. metoclopramide HCl [Reglan] 10 mg tablet 10 mg PO Q6H PRN (Reason: nausea and vomiting) Qty: 14 0RF Follow Up/Referrals: Cynthia Henderson PA-C [Primary Care Provider] - Stand Alone Forms: [employer] Info Instructions
[2024-06-20 16:09] LABS: Basophils Percent Auto 0.1 % (0.0-3.0); Eosinophils Percent Auto 0.3 % (0.0-7.0); Hematocrit 37.3 % (33.0-51.0); Hemoglobin* 12.6 gm/dL (12.0-16.0); Immature Granulocytes Pct Auto 0.3 %; Mean Corpuscular HGB Conc 34 gm/dL (32-36); Mean Corpuscular Hemoglobin 30 pg (26-34); Mean Corpuscular Volume 89 fL (80-100); Neutrophils Percent Auto 73.3 % (42.0-72.0); Platelet Count* 247 K/uL (140-440); RDW Coefficient of Variation % 12.7 % (11.5-15.5); Red Blood Count 4.18 m/uL (4.00-5.20); White Blood Count* 11.57 K/uL (4.50-11.00)
[2024-06-20 16:15] LABS: Slide Review Reflex No
--- OUTSIDE RECORDS SUMMARY | 2024-06-20 16:41 | XMS_ITS | Clinical Summary ---
Author Organization [facility] Address [address] [place] [address] Care Team Providers Care Diamond Assorter Name Role Phone No Primary/Referring, Phy Primary Care Provider Unavailable Source Comments You are receiving this document as you are listed as the primary care provider,follow-up provider, or the patient has been referred to you for consultation.This is in compliance with the Medicare and[facility] E[facility] Incentive [facility],which states Providers who transition their patient to another setting of careor provider of care or refers their patient to another provider of care shouldprovide summary care record for each transition of care or referral. [employer] Allergies Active Allergy Reactions Criticality Noted Date [...] Additional history exists COVID-19 Vaccine ( - season) 2024 Influenza (#1) 2024 08/02/2014, 07/29/2011 Zoster/Shingles (1 of 2) 2051 Hib Completed 12/06/2002, 03/18, 01/30/2002 Pneumococcal Aged Out 05/18/2003, 05/18, 04/03/2002, Additional history exists No longer eligible based on patient's age to complete this topic IPV (Polio) Completed 12/06/2006, 05/18, 04/03/2002, Additional history exists HepA Completed 12/25/2013, 06/09/2013 MCV4 Completed 04/18/2018, 06/09/2013 Care Teams Diamond Assorter Relationship Specialty Start Date End Date No Primary/Referring, Phy PCP - General 02/10/21
== END 2024-06-20 17:48 | disposition home or self-care (01) ==
PROVIDERS: Emergency Provider Family Medicine; PCP Physician Assistant Medical
DX: O20.9 Hemorrhage in early pregnancy, unspecified (principal)
CPT/HCPCS: 36415; 76817; 84702; 85025; 99283; 99284

== ENCOUNTER 2024-08-02 07:43 | Emergency (ER) | payer OTHER, SELFPAY ==
[2024-08-02 07:53] VITALS: BP 108/67; PULSE 101; RESP 18; TEMP 36.6; O2SAT 99; BMI 17.2
--- NOTE | 2024-08-02 08:00 | ED.GENADULT ---
HPI - General Adult General Chief complaint: Nausea/Vomiting Stated complaint: 14wks PG, cant eat, dizzy, weak, seeing spots Time Seen by Provider: 08/02/24 07:52 History of Present Illness HPI narrative: PATIENT IS A 23-YEAR-OLD WHITE FEMALE WHO IS ABOUT 14 WEEKS BY ESTIMATED GESTATIONAL AGE. She has spoken to her OBGYN about nausea vomiting, she has been on some Zofran and Reglan. She still continues to vomit whenever she drinks water have other intake. She reports spotting a few days ago but nothing since. No bleeding no contractions. She otherwise has been generally healthy, does have significant anxiety. Has had a history of pelvic pain and subclinical hyperthyroidism. No chest pain, no breathing problem, nose leg swelling or edema. No urinary symptoms. Related Data Previous Rx's ?Medication ?Instructions ?Recorded diphenhydramine HCl 50 mg capsule 50 mg PO QHS PRN nausea and 06/09/24 (Unisom SleepGels) vomiting #60 caps docosahexaenoic acid 200 mg 200 mg PO DAILY #90 caps 06/09/24 capsule ( DHA) ondansetron 4 mg disintegrating 4 mg PO Q8H PRN nausea and 06/09/24 tablet vomiting #30 tabs vitamins no.119-iron 1 tab PO DAILY #90 tabs 06/09/24 fumarate 29 mg-folic acid 1 mg tablet pyridoxine (vitamin B6) 50 mg 50 mg PO BID nausea #120 tabs 06/09/24 tablet metoclopramide HCl 10 mg tablet 10 mg PO Q6H PRN nausea and 06/11/24 (Reglan) vomiting #14 tabs progesterone micronized 200 mg 200 mg vaginal QHS 5 weeks #35 caps 07/07/24 capsule Allergies Allergy/AdvReac Type Severity Reaction Status Date / Time No Known Drug Allergies Allergy Verified 07/07/24 11:35 Review of Systems Status of ROS: Reports: 6 or more systems reviewed and unremarkable except as noted in History and below 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) ?M41.119 - Juvenile idiopathic scoliosis, site unspecified (ICD-10) Seizure-like activity ?R56.9 - Unspecified convulsions (ICD-10) Severe anxiety ?F41.9 - Anxiety disorder, unspecified (ICD-10) Endometritis ?N71.9 - Inflammatory disease of uterus, unspecified (ICD-10) Subclinical hyperthyroidism ?E05.90 - Thyrotoxicosis, unspecified without thyrotoxic crisis or storm (ICD-10) Migraine headache ?G43.909 - Migraine, unspecified, not intractable, without status migrainosus (ICD-10) Light-headedness ?R42 - Dizziness and giddiness (ICD-10) Irregular menstrual cycle ?N92.6 - Irregular menstruation, unspecified (ICD-10) Uses control ?Z78.9 - Other specified health status (ICD-10) Surgical History H/O dilation and curettage ?Z98.890 - Other specified postprocedural states (ICD-10) History of spinal fusion ?Z98.1 - Arthrodesis status (ICD-10) Family History Paternal Grandmother Breast cancer Paternal Grandfather Skin cancer Social History Narrative: SOCIAL Education: High school 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 Palmer; no medication currently Has a hard time with rationalizing, often spirals Significant NAKIA scores today Seat Belt Use: Routinely Smoking: Denies past/present; Cig stopped 2 years ago, using e cig. Alcohol/day: Denies while , rarely socially Caffeine: Monster 1x per day, but stopped for Drug Use: Denies past/present Smoking THC occasionally; declines UDS Chicken Pox: vaccinated MRSA: Denies What is your current living situation?: I presently have a place to live Problems where you live: no known problems In the past 12 months, utilities in danger of being shut off: no In past 12 months, lack of transportation kept you from medical appts, meetings, work, or getting things needed for daily living: no In the past 12 mos, have been you worried that your food would run out before you had money to buy more?: never true In the past 12 mos, the food you bought just didn't last and you didn't have money to buy more?: never true Smoking Status: Former smoker Do you use any of these nicotine containing products: None Second hand tobacco smoke exposure: No How often do you have a drink containing alcohol: never How often do you have six or more drinks on one occasion: Never AUDIT-C Alcohol total score: 0 Non-prescribed substance use: marijuana (any form) Caffeine: No How often does anyone, including family, friends and others, physically hurt you: never How often does anyone, including family, friends and others, insult or talk down to you: never How often does anyone, including family, friends and others, threaten you with harm: never How often does anyone, including family, friends and others, scream or curse at you: never Little interest or pleasure in doing things: more than half the days Feeling down, depressed, or hopeless: more than half the days service: No Exam Narrative: Exam Narrative: Objective: Vital signs look within normal limits Patient is alert orient x3 no distress noncyanotic, mouth is slightly dry Abdomen benign soft nontender Extremities are no edema , neurologic is grossly nonfocal Const: Vital Signs, click to edit/add: Vital Signs - 24 hr 08/02/24 07:53 Temperature 97.8 F Pulse Rate [Pulse Oximeter] 101 H Respiratory Rate 18 Blood Pressure [Ri ght Upper Arm] 108/67 Pulse Oximetry 99 Oxygen Delivery Me thod Room Air Course Vital Signs Vital signs: Initial Vital Signs Temperature 97.8 F 08/02/24 07:53 Temperature Source Temporal Artery Scan 08/02/24 07:53 Pulse Rate 101 H 08/02/24 07:53 Respiratory Rate 18 08/02/24 07:53 Blood Pressure 108/67 08/02/24 07:53 Blood Pressure Mean 80 08/02/24 07:53 Pulse Oximetry 99 08/02/24 07:53 Oxygen Delivery Method Room Air 08/02/24 07:53 Vital Signs Temperature 97.8 F 08/02/24 07:53 Pulse Rate 101 H 08/02/24 07:53 Respiratory Rate 18 08/02/24 07:53 Blood Pressure 108/67 08/02/24 07:53 Pulse Oximetry 99 08/02/24 07:53 Oxygen Delivery Method Room Air 08/02/24 07:53 Temperature 97.8 F 08/02/24 07:53 Pulse Rate 101 H 08/02/24 07:53 Respiratory Rate 18 08/02/24 07:53 Blood Pressure 108/67 08/02/24 07:53 Pulse Oximetry 99 08/02/24 07:53 Oxygen Delivery Method Room Air 08/02/24 07:53 Medications Administered Medications: Discontinued Medications Generic Name Dose Route Start Last Admin Trade Name Freq PRN Reason Stop Dose Admin Sodium Chloride 1,000 mls @ 6,000 mls/hr 08/02/24 08:17 08/02/24 09:02 0.9 % Sodium Chloride 1000 Ml IV 08/02/24 08:26 Infused .Q10M KVNG Infusion Ondansetron HCl 4 mg 08/02/24 07:55 08/02/24 08:17 Ondansetron 2 Mg/Ml Inj IVP 08/02/24 07:56 4 mg ONCE ONE Administration Medical Decision Making MDM Narrative Medical decision making narrative: Approximately 13 and half week estimated gestational age with nausea vomiting. Patient has tried some orals wrote Zofran and Reglan. Will get her IV fluid, IV Zofran, she has follow-up with her OBGYN this week. Likely this is hyperemesis. Associated with . Recommend follow-up as described, light diet small frequent meals, continue Zofran as needed at home. Will check CBC need Chem panel as well. Addendum 9:10 a.m.: The patient's laboratory studies look reassuring. Discharge home, light activity, Zofran as needed, follow-up with OB as scheduled. Lab Data Labs: Lab Results 08/02/24 Range/Units 07:56 WBC 7.85 (4.50-11.00) K/uL RBC 4.25 (4.00-5.20) m/uL Hgb 13.3 (12.0-16.0) gm/dL Hct 38.7 (33.0-51.0) % MCV 91 (80-100) fL MCH 31 (26-34) pg MCHC 34 (32-36) gm/dL RDW Coeff of Chris 13.4 (11.5-15.5) % Plt Count 210 (140-440) K/uL Neut % (Auto) 74.1 H (42.0-72.0) % Lymph % (Auto) 19.9 L (20-44) % [place] % (Auto) 5.0 (0.0-11.0) % Eos % (Auto) 0.4 (0.0-7.0) % Baso % (Auto) 0.3 (0.0-3.0) % Neut # (Auto) 5.80 (1.7-7.0) K/uL Lymph # (Auto) 1.60 (0.90-2.90) K/uL [place] # (Auto) 0.40 (0.00-0.90) K/UL Eos # (Auto) 0.03 (0.00-0.50) K/uL Baso # (Auto) 0.02 (0.00-0.30) K/uL Abs Immat Gran (auto) 0.02 (0.00-0.30) K/uL Imm/Tot Granulo (auto) 0.3 % Sodium 134 L (135-149) mmol/L Potassium 3.7 (3.6-5.1) mmol/L Chloride 103 (96-114) mmol/L Carbon Dioxide 21 (20-32) mmol/L Anion Gap 10 (7-15) mEq/L BUN 9 (5-24) mg/dL Creatinine 0.5 (0.5-1.5) mg/dL Estimated Creat Clear 151.65 Estimated GFR 136 ml/min Glucose 79 (60-115) mg/dL Calcium 9.5 (8.4-10.6) mg/dL Discharge Plan Discharge Clinical Impression: Hyperemesis gravidarum Patient Disposition: Home, Self-Care Condition: Improved Additional Instructions: Light activity, continue the Zofran as needed, follow-up with your OB as planned. Activity Level: Light activity Discharge Diet: Regular Prescriptions: No Action DHA 200 mg capsule 200 mg PO DAILY Qty: 90 3RF PNV 119-iron fum-folic acid 29 mg iron- 1 mg tablet 1 tab PO DAILY Qty: 90 3RF pyridoxine (vitamin B6) 50 mg tablet 50 mg PO BID Qty: 120 3RF diphenhydramine HCl [Unisom SleepGels] 50 mg capsule 50 mg PO QHS PRN (Reason: nausea and vomiting) Qty: 60 0RF ondansetron 4 mg tablet,disintegrating 4 mg PO Q8H PRN (Reason: nausea and vomiting) Qty: 30 0RF progesterone micronized 200 mg capsule 200 mg vaginal QHS 35 Days Qty: 35 1RF Rx Instructions: Place 1 cap vaginal at night daily until 16 weeks gestation. metoclopramide HCl [Reglan] 10 mg tablet 10 mg PO Q6H PRN (Reason: nausea and vomiting) Qty: 14 0RF Follow Up/Referrals: Cynthia Henderson PA-C [Primary Care Provider] - Stand Alone Forms: MyHealth Info Instructions
--- OUTSIDE RECORDS SUMMARY | 2024-08-02 08:09 | XMS_ITS | Clinical Summary ---
Author Organization [facility] Address [address] [place] [id number] Care Team Providers Care Licensed Weigher Name Role Phone No Primary/Referring, Phy Primary Care Provider Unavailable Source Comments You are receiving this document as you are listed as the primary care provider,follow-up provider, or the patient has been referred to you for consultation.This is in compliance with the Medicare and[facility],which states Providers who transition their patient to another setting of careor provider of care or refers their patient to another provider of care shouldprovide summary care record for each transition of care or referral. [employer] Allergies Active Allergy Reactions Criticality Noted Date [...] Additional history exists COVID-19 Vaccine ( season) 2024 Influenza (#1) 2024 08/02/2014, 07/29/2011 Zoster/Shingles (1 of 2) 2051 Hib Completed 12/06/2002, 03/18, 01/30/2002 Pneumococcal Aged Out 05/18/2003, 05/18, 04/03/2002, Additional history exists No longer eligible based on patient's age to complete this topic IPV (Polio) Completed 12/06/2006, 05/18, 04/03/2002, Additional history exists HepA Completed 12/25/2013, 06/09/2013 MCV4 Completed 04/18/2018, 06/09/2013 Infant RSV Aged Out No longer eligi ble based on patient's age to complete this topic Care Teams Licensed Weigher Relationship Specialty Start Date End Date No Primary/Referring, Phy PCP - General 02/10/21
[2024-08-02] MEDS: ONDANSETRON 2 MG/ML inj 4 MG IVP (08:17)
[2024-08-02] MEDS: 0.9 % SODIUM CHLORIDE 1000 ml 1,000 ML 6000 ML IV (08:17)
[2024-08-02 08:30] LABS: Basophils Absolute Auto 0.02 K/uL (0.00-0.30); Basophils Percent Auto 0.3 % (0.0-3.0); Eosinophils Absolute Auto 0.03 K/uL (0.00-0.50); Eosinophils Percent Auto 0.4 % (0.0-7.0); Hematocrit 38.7 % (33.0-51.0); Hemoglobin* 13.3 gm/dL (12.0-16.0); Immature Granulocytes Abs Auto 0.02 K/uL (0.00-0.30); Immature Granulocytes Pct Auto 0.3 %; Lymphocytes Percent Auto 19.9 % (20-44); Mean Corpuscular HGB Conc 34 gm/dL (32-36); Mean Corpuscular Hemoglobin 31 pg (26-34); Mean Corpuscular Volume 91 fL (80-100); Neutrophils Percent Auto 74.1 % (42.0-72.0); Platelet Count* 210 K/uL (140-440); RDW Coefficient of Variation % 13.4 % (11.5-15.5); Red Blood Count 4.25 m/uL (4.00-5.20); White Blood Count* 7.85 K/uL (4.50-11.00)
[2024-08-02 08:33] LABS: Slide Review Reflex No
[2024-08-02 08:50] LABS: Chloride* 103 mmol/L (96-114)
[2024-08-02 08:51] LABS: Potassium* 3.7 mmol/L (3.6-5.1); Sodium* 134 mmol/L (135-149)
[2024-08-02 08:53] LABS: Creatinine* 0.5 mg/dL (0.5-1.5); Est. Creatinine Clearance* 151.65; Estimated Glomerular Filt Rate 136 ml/min
[2024-08-02 08:54] LABS: Anion Gap 10 mEq/L (7-15); Blood Urea Nitrogen* 9 mg/dL (5-24); Calcium* 9.5 mg/dL (8.4-10.6); Carbon Dioxide* 21 mmol/L (20-32); Glucose* 79 mg/dL (60-115)
[2024-08-02 09:30] VITALS: BP 112/69; PULSE 92; RESP 18; TEMP 36.6
== END 2024-08-02 09:30 | disposition home or self-care (01) ==
PROVIDERS: Emergency Provider Family Medicine; PCP Physician Assistant Medical
DX: O21.0 Mild hyperemesis gravidarum (principal); Z3A.14 14 weeks gestation of pregnancy
CPT/HCPCS: 36415; 80048; 85025; 96374; 99283; 99284; J2405; J7030

== ENCOUNTER 2024-08-21 09:50 | Emergency (ER) | payer OTHER, SELFPAY ==
[2024-08-21 10:12] VITALS: BP 120/72; PULSE 72; RESP 16; TEMP 37.1; O2SAT 99; BMI 17.2
--- NOTE | 2024-08-21 10:48 | ED_ITS ---
HPI - General Adult General Chief complaint: Nausea/Vomiting Stated complaint: 17wks PG, migraines, vomiting, blurred vision Time Seen by Provider: 08/21/24 10:42 History of Present Illness HPI narrative: This 23-year-old female comes in with migraine headache symptoms including blurry vision, headache, nausea, and numerous vomiting episodes. She states that she is 17 weeks . She does report some small amount of vaginal discharge and some abdominal cramping but states that she had intercourse with her partner last night and thinks that that may have triggered these symptoms. Her headache symptoms also started last night. She does have a remote history of migraine headaches. Related Data Previous Rx's ?Medication ?Instructions ?Recorded diphenhydramine HCl 50 mg capsule 50 mg PO QHS PRN nausea and 06/09/24 (Unisom SleepGels) vomiting #60 caps docosahexaenoic acid 200 mg 200 mg PO DAILY #90 caps 06/09/24 capsule ( DHA) ondansetron 4 mg disintegrating 4 mg PO Q8H PRN nausea and 06/09/24 tablet vomiting #30 tabs pyridoxine (vitamin B6) 50 mg 50 mg PO BID nausea #120 tabs 06/09/24 tablet metoclopramide HCl 10 mg tablet 10 mg PO Q6H PRN nausea and 06/11/24 (Reglan) vomiting #14 tabs progesterone micronized 200 mg 200 mg vaginal QHS 5 weeks #35 caps 07/07/24 capsule Allergies Allergy/AdvReac Type Severity Reaction Status Date / Time No Known Drug Allergies Allergy Verified 08/21/24 10:18 Review of Systems Status of ROS: Reports: 10 or more systems reviewed and unremarkable except as noted in History and below Narrative: Constitutional: No fevers, no weight gain or loss. Eyes: No discharge. No vision changes. HENT: No congestion, no sore throat, no ear pain. Cardiovascular: No chest pain, no palpitations. Respiratory: No shortness of breath, no wheezes, no cough. Gastrointestinal: Nausea with vomiting. Genitourinary: No dysuria, no hematuria. Musculoskeletal: Normal range of motion. Skin: No rashes, no pruritis. Neurological: No dizziness, weakness, sensory change, speech change. Endo/Heme/Allergies: No bruising or bleeding. No polydipsia. Pysch: no suicidality, no anxiety, no insomnia. All other systems reviewed and are negative. 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) ?M41.119 - Juvenile idiopathic scoliosis, site unspecified (ICD-10) Seizure-like activity ?R56.9 - Unspecified convulsions (ICD-10) Severe anxiety ?F41.9 - Anxiety disorder, unspecified (ICD-10) Endometritis ?N71.9 - Inflammatory disease of uterus, unspecified (ICD-10) Subclinical hyperthyroidism ?E05.90 - Thyrotoxicosis, unspecified without thyrotoxic crisis or storm (ICD-10) Migraine headache ?G43.909 - Migraine, unspecified, not intractable, without status migrainosus (ICD-10) Light-headedness ?R42 - Dizziness and giddiness (ICD-10) Irregular menstrual cycle ?N92.6 - Irregular menstruation, unspecified (ICD-10) Uses control ?Z78.9 - Other specified health status (ICD-10) Surgical History H/O dilation and curettage ?Z98.890 - Other specified postprocedural states (ICD-10) History of spinal fusion ?Z98.1 - Arthrodesis status (ICD-10) Family History Paternal Grandmother Breast cancer Paternal Grandfather Skin cancer Social History Narrative: SOCIAL Education: High school 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 Palmer; no medication currently Has a hard time with rationalizing, often spirals Significant NAKIA scores today Seat Belt Use: Routinely Smoking: Denies past/present; Cig stopped 2 years ago, using e cig. Alcohol/day: Denies while , rarely socially Caffeine: Monster 1x per day, but stopped for Drug Use: Denies past/present Smoking THC occasionally; declines UDS Chicken Pox: vaccinated MRSA: Denies What is your current living situation?: I presently have a place to live Problems where you live: no known problems In the past 12 months, utilities in danger of being shut off: no In past 12 months, lack of transportation kept you from medical appts, meetings, work, or getting things needed for daily living: no In the past 12 mos, have been you worried that your food would run out before you had money to buy more?: never true In the past 12 mos, the food you bought just didn't last and you didn't have money to buy more?: never true Smoking Status: Former smoker Do you use any of these nicotine containing products: E-Cigarettes Second hand tobacco smoke exposure: No How often do you have a drink containing alcohol: never How often do you have six or more drinks on one occasion: Never AUDIT-C Alcohol total score: 0 Non-prescribed substance use: marijuana (any form) Non-prescribed substance use details: last marijuana few weeks ago Caffeine: No How often does anyone, including family, friends and others, physically hurt you : never How often does anyone, including family, friends and others, insult or talk down to you: never How often does anyone, including family, friends and others, threaten you with harm: never How often does anyone, including family, friends and others, scream or curse at you: never Little interest or pleasure in doing things: more than half the days Feeling down, depressed, or hopeless: more than half the days service: No Exam Narrative: Exam Narrative: Constitutional: Well-developed, well-nourished, no acute distress. HEENT: Normocephalic, atraumatic. Neck: Normal range of motion. Nontender. Supple. Heart: Regular. No murmurs. Normal rate. Intact distal pulses. Lungs: Clear to auscultation. No chest discomfort. No wheezes, rhonchi, or rales. Abdomen: Normal bowel sounds. Nontender. No rebound tenderness. Genitalia: Deferred. Back: No midline tenderness. Normal range of motion. Extremities: Normal range of motion. No injury. Skin: Intact. No rash. Warm. No erythema or pallor. Neurologic: No altered sensation. No weakness. Alert and oriented. Psychiatric: No suicidality. No anxiety or depression. No insomnia. Nursing notes and vitals signs are reviewed. Const: Vital Signs, click to edit/add: Vital Signs - 24 hr 08/21/24 10:12 Temperature 98.7 F Pulse Rate [Left P ulse Oximeter] 72 Respiratory Rate 16 Blood Pressure [Ri ght Upper Arm] 120/72 Pulse Oximetry 99 Oxygen Delivery Me thod Room Air Course Vital Signs Vital signs: Initial Vital Signs Temperature 98.7 F 08/21/24 10:12 Temperature Source Temporal Artery Scan 08/21/24 10:12 Pulse Rate 72 08/21/24 10:12 Respiratory Rate 16 08/21/24 10:12 Blood Pressure 120/72 08/21/24 10:12 Blood Pressure Mean 88 08/21/24 10:12 Blood Pressure Position Sitting 08/21/24 10:12 Pulse Oximetry 99 08/21/24 10:12 Oxygen Delivery Method Room Air 08/21/24 10:12 Vital Signs Temperature 98.7 F 08/21/24 10:12 Pulse Rate 72 08/21/24 10:12 Respiratory Rate 16 08/21/24 10:12 Blood Pressure 120/72 08/21/24 10:12 Pulse Oximetry 99 08/21/24 10:12 Oxygen Delivery Method Room Air 08/21/24 10:12 Temperature 98.7 F 08/21/24 10:12 Pulse Rate 72 08/21/24 10:12 Respiratory Rate 16 08/21/24 10:12 Blood Pressure 120/72 08/21/24 10:12 Pulse Oximetry 99 08/21/24 10:12 Oxygen Delivery Method Room Air 08/21/24 10:12 Medications Administered Medications: Discontinued Medications Generic Name Dose Route Start Last Admin Trade Name Freq PRN Reason Stop Dose Admin Diphenhydramine HCl 25 mg 08/21/24 10:47 08/21/24 11:03 Diphenhydramine 50 Mg/Ml Inj IVP 08/21/24 10:48 25 mg ONCE ONE Administration Sodium Chloride 500 mls @ 500 mls/hr 08/21/24 10:47 08/21/24 11:37 0.9 % Sodium Chloride 500 Ml IV 08/21/24 11:46 Infused .Q1H ONE Infusion Ketorolac Tromethamine 15 mg 08/21/24 10:47 08/21/24 11:02 Ketorolac 30 Mg/Ml Inj IVP 08/21/24 10:48 15 mg ONCE ONE Administration Ondansetron HCl 4 mg 08/21/24 10:47 08/21/24 11:02 Ondansetron 2 Mg/Ml Inj IVP 08/21/24 10:48 4 mg ONCE ONE Administration Medical Decision Making MDM Narrative Medical decision making narrative: This patient comes in with symptoms typical of a migraine headache. She does have a history of migraine headaches more remotely. She is not showing any signs of neurologic deficit. An IV was established where she received half a L of normal saline, Toradol 15 mg, Zofran 4 mg, and Benadryl 25 mg. This brought sufficient relief to her headache. I did do bedside ultrasound to view her current . This was reassuring as it showed normal anatomy and heart activity. Discharge Plan Discharge Clinical Impression: Migraine headache Additional Instructions: Continue current plans. Follow up with MD as needed. Return if worsening. Prescriptions: No Action DHA 200 mg capsule 200 mg PO DAILY Qty: 90 3RF pyridoxine (vitamin B6) 50 mg tablet 50 mg PO BID Qty: 120 3RF diphenhydramine HCl [Unisom SleepGels] 50 mg capsule 50 mg PO QHS PRN (Reason: nausea and vomiting) Qty: 60 0RF ondansetron 4 mg tablet,disintegrating 4 mg PO Q8H PRN (Reason: nausea and vomiting) Qty: 30 0RF progesterone micronized 200 mg capsule 200 mg vaginal QHS 35 Days Qty: 35 1RF Rx Instructions: Place 1 cap vaginal at night daily until 16 weeks gestation. metoclopramide HCl [Reglan] 10 mg tablet 10 mg PO Q6H PRN (Reason: nausea and vomiting) Qty: 14 0RF Follow Up/Referrals: Cynthia Henderson PA-C [Primary Care Provider] - Procedures Ultrasound Other exam #1: Anatomical areas examined: at 17 weeks gestation. Indications: Abdominal cramping Exam type: focused emergency ultrasound Description/findings: Normal anatomy with normal heart activity. Impression: Normal at approximately 17 weeks gestation.
--- OUTSIDE RECORDS SUMMARY | 2024-08-21 10:56 | XMS_ITS | Clinical Summary ---
Author Organization [facility] Address [address] [place] [id number] Care Team Providers Care School Bus Driver/Mechanic Name Role Phone No Primary/Referring, Phy Primary Care Provider Unavailable Source Comments You are receiving this document as you are listed as the primary care provider,follow-up provider, or the patient has been referred to you for consultation.This is in compliance with the Medicare and[facility],which states Providers who transition their patient to another setting of careor provider of care or refers their patient to another provider of care shouldprovide summary care record for each transition of care or referral. Chronicity Allergies Active Allergy Reactions Criticality Noted Date [...] age to complete this topic Care Teams School Bus Driver/Mechanic Relationship Specialty Start Date End Date No Primary/Referring, Phy PCP - General 02/10/21
[2024-08-21] MEDS: ONDANSETRON 2 MG/ML inj 4 MG IVP (11:02)
[2024-08-21] MEDS: KETOROLAC 30 MG/ML inj 15 MG IVP (11:02)
[2024-08-21] MEDS: diphenhydrAMINE 50 MG/ML inj 25 MG IVP (11:03)
[2024-08-21] MEDS: 0.9 % SODIUM CHLORIDE 500 ML 500 ML IV (11:03)
== END 2024-08-21 12:09 | disposition home or self-care (01) ==
LOC: ED 10:54
PROVIDERS: Emergency Provider Emergency Medicine Emergency Medical Services; PCP Physician Assistant Medical
DX: O99.351 Diseases of the nervous system complicating pregnancy, first trimester (principal); G43.909 Migraine, unspecified, not intractable, without status migrainosus; Z3A.17 17 weeks gestation of pregnancy
CPT/HCPCS: 76857; 96374; 96375; 99284; J1200; J1885; J2405; J7030

== ENCOUNTER 2024-09-09 21:43 | Emergency (ER) | payer OTHER, SELFPAY ==
--- NOTE | 2024-09-09 21:46 | ED_ITS ---
HPI - General Adult General Chief complaint: Vaginal Bleeding Stated complaint: 19 weeks , bleeding Time Seen by Provider: 09/09/24 21:57 History of Present Illness HPI narrative: c/o vaginal bleeding, 19.5 wks. seeks OB care here through the midwifes. per pt. she has a complication that she was instructed to seek medical evaluation for any type of bleeding. no pain, and pt. states bleeding in more of a spotting, maybe changing her pad once an hour 23-year-old woman presenting to the emergency department concern of vaginal bleeding. Currently approximately 19 and half weeks . has been complicated by subchorionic bleeding and concern of vasa previa. She did get up to use the bathroom tonight noting moderate amount of blood which has now slowed to just spotting. She is not having abdominal pain. No fever. Has been practicing pelvic rest. 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 Unclear reason. Has had uterine polypectomies. No lightheadedness or noted nausea. Is feeling baby move. Measuring home heart rate with Doppler at 140 where usually 160-170 but acknowledges that this is within normal range. Reviewing progress notes from 3 days ago when seen with Maternal- Medicine they note no indication for ?any suspicion of vasa previa? Below is ultrasound from 3 months ago upon visit to this emergency department. Ordering Physician: Ileana Jonas M.D. Date of Service: 06/20/24 Procedure(s): US OB transvaginal Accession Number(s): [id number] cc: Ileana Jonas M.D.; Cynthia CRISTINA~ For Patients: As a result of the Cures Act, medical imaging exams and procedure reports are released immediately into your electronic medical record. You may view this report before your referring provider. If you have questions, please contact your health care provider. INDICATION: Bleeding, spotting. TECHNIQUE: Ultrasound OB pelvis transabdominal. Real-time chavez-scale imaging of the pelvis was performed. COMPARISON: Obstetric ultrasound dated 06/11/2024. FINDINGS: Sonographic imaging demonstrates a single living intrauterine gestation. The embryo demonstrates a regular cardiac rate measuring 169 beats per minute. The embryo`s crown rump length measurement of 1.5 cm corresponds to a gestational age of 7 weeks, 6 days. There is a normal appearing yolk sac. There are no gross abnormalities noted within the embryo at this early state of development. The placenta has not yet developed. Small focus of subchorionic hemorrhage in the lower uterine body measuring 1.1 x 0.6 x 0.4 cm. Unremarkable appearance of the bilateral ovaries, with a small corpus luteum noted within the right ovary. Trace pelvic free fluid. IMPRESSION: 1. Single viable intrauterine with crown-rump length of 1.5 cm, corresponding to a gestational age of 7 weeks, 6 days. 2. Small focus of subchorionic hemorrhage in the lower uterine body measuring up to 1.1 cm, similar to prior study. Dictated by Gilberto Quigley MD @ 06/20/2024 6:46:38 PM Related Data Home Medications ?Medication ?Instructions ?Recorded ?Confirmed ascorbate calcium (vitamin C) 500 1 g PO Q6H 08/31/24 08/31/24 mg tablet metronidazole 500 mg tablet 500 mg PO BID 08/31/24 08/31/24 Previous Rx's ?Medication ?Instructions ?Recorded diphenhydramine HCl 50 mg capsule 50 mg PO QHS PRN nausea and 06/09/24 (Unisom SleepGels) vomiting #60 caps docosahexaenoic acid 200 mg 200 mg PO DAILY #90 caps 06/09/24 capsule ( DHA) ondansetron 4 mg disintegrating 4 mg PO Q8H PRN nausea and 06/09/24 tablet vomiting #30 tabs pyridoxine (vitamin B6) 50 mg 50 mg PO BID nausea #120 tabs 06/09/24 tablet metoclopramide HCl 10 mg tablet 10 mg PO Q6H PRN nausea and 06/11/24 (Reglan) vomiting #14 tabs progesterone micronized 200 mg 200 mg vaginal QHS 5 weeks #35 caps 07/07/24 capsule Allergies Allergy/AdvReac Type Severity Reaction Status Date / Time No Known Drug Allergies Allergy Verified 09/09/24 21:50 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) ?M41.119 - Juvenile idiopathic scoliosis, site unspecified (ICD-10) Seizure-like activity ?R56.9 - Unspecified convulsions (ICD-10) Severe anxiety ?F41.9 - Anxiety disorder, unspecified (ICD-10) Endometritis ?N71.9 - Inflammatory disease of uterus, unspecified (ICD-10) Subclinical hyperthyroidism ?E05.90 - Thyrotoxicosis, unspecified without thyrotoxic crisis or storm (ICD-10) Migraine headache ?G43.909 - Migraine, unspecified, not intractable, without status migrainosus (ICD-10) Light-headedness ?R42 - Dizziness and giddiness (ICD-10) Irregular menstrual cycle ?N92.6 - Irregular menstruation, unspecified (ICD-10) Uses control ?Z78.9 - Other specified health status (ICD-10) Surgical History H/O dilation and curettage ?Z98.890 - Other specified postprocedural states (ICD-10) History of spinal fusion ?Z98.1 - Arthrodesis status (ICD-10) Family History Paternal Grandmother Breast cancer Paternal Grandfather Skin cancer Social History Narrative: SOCIAL Education: High school 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 Palmer; no medication currently Has a hard time with rationalizing, often spirals Significant NAKIA scores today Seat Belt Use: Routinely Smoking: Denies past/present; Cig stopped 2 years ago, using e cig. Alcohol/day: Denies while , rarely socially Caffeine: Monster 1x per day, but stopped for Drug Use: Denies past/present Smoking THC occasionally; declines UDS Chicken Pox: vaccinated MRSA: Denies What is your current living situation?: I presently have a place to live Problems where you live: no known problems In the past 12 months, utilities in danger of being shut off: no In the past 12 mos, have been you worried that your food would run out before you had money to buy more?: never true In the past 12 mos, the food you bought just didn't last and you didn't have money to buy more?: never true Smoking Status: Former smoker Do you use any of these nicotine containing products: E-Cigarettes Second hand tobacco smoke exposure: No How often do you have a drink containing alcohol: never How often do you have six or more drinks on one occasion: Never AUDIT-C Alcohol total score: 0 Non-prescribed substance use: marijuana (any form) Non-prescribed substance use details: last marijuana few weeks ago Caffeine: No How often does anyone, including family, friends and others, physically hurt you : never How often does anyone, including family, friends and others, insult or talk down to you: never How often does anyone, including family, friends and others, threaten you with harm: never How often does anyone, including family, friends and others, scream or curse at you: never service: No Exam Narrative: Exam Narrative: Pleasant. NAD. Breathing easily. Skin is warm and dry. Mucous membranes are appropriately pink. Heart in regular rate and rhythm. Abdomen is appropriately gravid and nontender. Extremities are well perfused. exam was not done. Const: Vital Signs, click to edit/add: Vital Signs - 24 hr 09/09/24 21:50 Temperature 96.9 F L Pulse Rate [Pulse Oximeter] 78 Respiratory Rate 16 Blood Pressure [Le ft Upper Arm] 109/71 Pulse Oximetry 99 Oxygen Delivery Me thod Room Air Documenting provider has reviewed patient's vital signs: yes Course Vital Signs Vital signs: Initial Vital Signs Temperature 96.9 F L 09/09/24 21:50 Temperature Source Temporal Artery Scan 09/09/24 21:50 Pulse Rate 78 09/09/24 21:50 Respiratory Rate 16 09/09/24 21:50 Blood Pressure 109/71 09/09/24 21:50 Blood Pressure Mean 83 09/09/24 21:50 Blood Pressure Position High-Fowlers 09/09/24 21:50 Pulse Oximetry 99 09/09/24 21:50 Oxygen Delivery Method Room Air 09/09/24 21:50 Vital Signs Temperature 96.9 F L 09/09/24 21:50 Pulse Rate 78 09/09/24 21:50 Respiratory Rate 16 09/09/24 21:50 Blood Pressure 109/71 09/09/24 21:50 Pulse Oximetry 99 09/09/24 21:50 Oxygen Delivery Method Room Air 09/09/24 21:50 Temperature 96.9 F L 09/09/24 21:50 Pulse Rate 78 09/09/24 21:50 Respiratory Rate 16 09/09/24 21:50 Blood Pressure 109/71 09/09/24 21:50 Pulse Oximetry 99 09/09/24 21:50 Oxygen Delivery Method Room Air 09/09/24 21:50 Medical Decision Making MDM Narrative Medical decision making narrative: Did avoid speculum exam with initial concern of vasa previa. I have requested limited OB ultrasound to look for other sources of bleed like recurrence of subchorionic bleed/hemorrhage. Monitor also for degree of bleeding. Ob staff arrived to monitor briefly. No concerns noted. Discussed findings on ultrasound here today with cytology laboratory manager and case as well with on-call OBGYN. Overall reassuring. No increase in bleeding. Plan is for continued ultrasound surveillance and close follow-up. Radiology over-read for ultrasound as below INDICATION: 2nd trimester vaginal bleeding. TECHNIQUE: Ultrasound OB pelvis transabdominal. Real-time chavez-scale imaging of the fetus was performed as well as color Doppler and spectral Doppler analysis of the umbilical artery. COMPARISON: None. FINDINGS: Intrauterine gestation: Single. heart rate: Regular, 147 bpm. presentation: Likely vertex. Placenta: Posterior. Cervix: 3.8. Amniotic fluid: 4.7 cm deepest pocket. Other: Vessel crossing the internal cervical os is demonstrated. Cord insertion into the placenta is not well seen due to position. IMPRESSION: No acute findings. Vessel crossing the internal cervical os is suspicious for vasa previa. See patient discharge plan for further discussion Medical Records Medical records reviewed: Yes I reviewed the patient's medical records Discharge Plan Discharge Clinical Impression: Vaginal bleeding during Additional Instructions: Continue to stay well-hydrated. Follow-up for repeat ultrasounds as recommended/scheduled. Return/be seen for increasing abdominal pain, fever, bleeding through an overnight pad an hour for 2 consecutive hours. I will call you if radiology over-read has other concerns about your ultrasound Prescriptions: No Action DHA 200 mg capsule 200 mg PO DAILY Qty: 90 3RF pyridoxine (vitamin B6) 50 mg tablet 50 mg PO BID Qty: 120 3RF diphenhydramine HCl [Unisom SleepGels] 50 mg capsule 50 mg PO QHS PRN (Reason: nausea and vomiting) Qty: 60 0RF ondansetron 4 mg tablet,disintegrating 4 mg PO Q8H PRN (Reason: nausea and vomiting) Qty: 30 0RF metronidazole 500 mg tablet 500 mg PO BID ascorbate calcium (vitamin C) 500 mg tablet 1 g PO Q6H progesterone micronized 200 mg capsule 200 mg vaginal QHS 35 Days Qty: 35 1RF Rx Instructions: Place 1 cap vaginal at night daily until 16 weeks gestation. metoclopramide HCl [Reglan] 10 mg tablet 10 mg PO Q6H PRN (Reason: nausea and vomiting) Qty: 14 0RF Follow Up/Referrals: Cynthia Henderson PA-C [Primary Care Provider] - Stand Alone Forms: MyHealth Info Instructions
[2024-09-09 21:50] VITALS: BP 109/71; PULSE 78; RESP 16; TEMP 36.1; O2SAT 99; BMI 17.2
--- NOTE | 2024-09-09 22:06 | CRLHL7_ITS ---
For Patients: As a result of the Century Cures Act, medical imaging exams and procedure reports are released immediately into your electronic medical record. You may view this report before your referring provider. If you have questions, please contact your health care provider. INDICATION: 2nd trimester vaginal bleeding. TECHNIQUE: Ultrasound OB pelvis transabdominal. Real-time chavez-scale imaging of the fetus was performed as well as color Doppler and spectral Doppler analysis of the umbilical artery. COMPARISON: None. FINDINGS: Intrauterine gestation: Single. heart rate: Regular, 147 bpm. presentation: Likely vertex. Placenta: Posterior. Cervix: 3.8. Amniotic fluid: 4.7 cm deepest pocket. Other: Vessel crossing the internal cervical os is demonstrated. Cord insertion into the placenta is not well seen due to position. IMPRESSION: No acute findings. Vessel crossing the internal cervical os is suspicious for vasa previa. Dictated by Fernandez Hernandez MD @ 09/09/2024 11:57:06 PM (Electronically Signed)
--- OUTSIDE RECORDS SUMMARY | 2024-09-09 22:21 | XMS_ITS | Encounter Summary ---
Author Organization [place] Address [facility] [place] [address] Care Team Providers Care Chairman And Chief Executive Officer Name Role Phone No Ref-Primary, Physician Primary Care Provider Reason for Visit * Reason Comments Genetic Counseling Hyperemesis, Anxiety , Recurrent loss, KVNG 1st trimester Ultrasound L2-Hyperemesis, Anxi ety, Recurrent loss, KVNG 1st trimester Encounter Details Date Type Department Care Team (Late st Contact Info) Description 08/28/2024 PRE VISIT [facility] Maternal Medicine [facility] [address] [place] [address] Hamida Fan RN Genetic Counseling (Hyperemesis, Anxiety, Recurrent loss, KVNG 1st trimester); Ultrasound (L2-Hyperemesis, Anxiety, Recurrent loss, KVNG 1st trimester) Social History Tobacco Use Types Packs/Day Years Used Date Smoking Tobacco: Never Adolescent Education Answer Date Record ed Getting School Help Needed Not on file 07/09 Estimated Date of Delivery Comme nts Yes 01/31/2025 Based on Ultraso und Sex and Gender Information Value Date Recorded Sex Assigned at Not on file Legal Sex Female 2:39 PM CDT Gender Identity Not on file Sexual Orientation Not on file documented as of this encounter Plan of Treatment Upcoming Encounters Date Type Department Care Team (Late st Contact Info) Description 10/24/2024 2:15 PM CATHEAD WORKER Appointment [facility] Maternal Medicine [facility] [address] [place] [address] Amara Owens MD [phone] [address] 10/24/2024 2:45 PM CATHEAD WORKER Office Visit [facility] Maternal Medicine [facility] [address] [place] [address] Amara Owens MD [address] [facility] [address] [place], [place] [id number] documented as of this encounter Visit Diagnoses Not on filedocumented in this encounter Care Teams Chairman And Chief Executive Officer Relationship Specialty Start Date End Date No Ref-Primary, Physician PCP - General 08/07/24 documented as of this encounter
--- OUTSIDE RECORDS SUMMARY | 2024-09-09 22:21 | XMS_ITS | Encounter Summary ---
Author Organization [place] Address [facility] [place] [address] Care Team Providers Care Well Surveying Engineer Name Role Phone No Ref-Primary, Physician Primary Care Provider Reason for Referral * Diagnostic Imaging Ultrasound (Routine) - Pending Review Specialty Diagnoses / Procedures Referred By Contac t Referred To Contact Radiology. Diagnoses Velamentous insertion of umbilical cord in second trimester Procedures MFM US Comprehensive Single F/U Amara Owens MD [address] [place] [address] Phone: tel: fax: Referral ID Status Reason Start Date Expiration Date V isits Requested Visits Authorized [id number] Pending Review 09/05/2024 09/05/2025 1 1 RVISOR STENO POOL Reason for Visit * Reason Comments Ultrasound L2-hyyperemesis, rec urrent loss, KVNG Encounter Details Date Type Department Care Team (Late st Contact Info) Description 09/05/2024 9:15 AM SUPERVISOR STENO POOL Office Visit [facility] [place] [address] [place] [address] Amara Owens MD [address] [place] [address] Velamentous insertion of umbilical cord in second trimester (Primary Dx) Social History Tobacco Use Types Packs/Day Years [...] on file documented as of this encounter Progress Notes * Amara Owens MD - 09/05/2024 9:15 AM CST Please see full imaging report from ViewPoint program under imaging tab. Thank-you for referring your patient for ultrasound assessment. I discussed the findings on today's ultrasound with the patient and her partner. I reviewed the limitations of ultrasound both in detecting aneuploidy and structural abnormalities. Ultrasound can routinely detect 80-90% of structural abnormalities. She had low risk cell free DNA for genetic screening this . She has had evaluations urgently for vaginal bleeding. We reviewed the reassuring findings today which do not indicate any suspicion for vasa previa, but we will continue to watch the vessels that course from the velamentous cord insertion. We reviewed the cord insertion as well today. I do recommend serial growth US given these findings. She will have her OB care in [place], but would like to have serial US with [facility]. We recommend growth at least at 28 and 34 weeks, more frequently if any additional complications or concerns arise. Return to primary provider for continued care. If you have questions regarding today's evaluation or if we can be of further service, please contact the [facility] Center. I spent a total of 25 minutes on the date of this encounter including preparing to see the patient (reviewing medical records/tests), counseling and discussing the plan of care, documenting the visitin the electronic medical record, and communicating with other health personal care assistant and/or care coordination. Amara Owens MD Maternal Medicine RVISOR STENO POOL documented in this encounter Nursing Notes * Shantel Noyola, SUKUMAR - 09/05/2024 9:15 AM CST Ronit presents to [facility] for level 2 ultrasound. Patient endorses positive movement, denies contractions, leaking of fluid, or bleeding. SBAR given to FEDE LEE, see their note in Epic. RVISOR STENO POOL documented in this encounter Plan of Treatment Upcoming Encounters Date Type Department Care Team (Late st Contact Info) Description 10/24/2024 2:15 PM SUPERVISOR STENO POOL Appointment [facility] Maternal Medicine [facility] [address] [place] [phone] Amara Owens MD [address] [place], [place] [id number] 10/24/2024 2:45 PM SUPERVISOR STENO POOL Office Visit [facility] Medicine [facility] [address] [place] [phone] Amara Owens MD [address] [place] [address] Scheduled Orders Name Type Priority Associated Diagnoses Orde r Schedule FEDE Comprehensive Single F/U Imaging Routine Velamentous insertion of umbilical cord in second trimester Expected: 10/25/2024 (Approximate), Expires: 09/05/2025 documented as of this encounter Visit Diagnoses Diagnosis Velamentous insertion of umbilical cord in second trimester- Primary Other umbilical cord complications during labor and delivery, unspecified as to episode of care documented in this encounter Care Teams Well Surveying Engineer Relationship Specialty Start Date End Date No Ref-Primary, Physician PCP - General 08/07/24 documented as of this encounter
--- OUTSIDE RECORDS SUMMARY | 2024-09-09 22:21 | XMS_ITS | Encounter Summary ---
Author Organization [place] Address [address] [place] [address] Care Team Providers Care Product Consultant Name Role Phone No Ref-Primary, Physician Primary Care Provider Encounter Details Date Type Department Care Team (Late st Contact Info) Description 08/07/2024 Medical Correspondence [facility] Information Management [address] [place] [address] [address] [place] [address] Scan, Non-Provider Social History Tobacco Use Types Packs/Day Years Used Date Smoking Tobacco: Never Adolescent Education Answer Date Record ed Getting School Help Needed Not on file 07/09 Comments Unknown Sex and Gender Information Value Date Recorded Sex Assigned at Not on file Legal Sex Female 2:39 PM CDT Gender Identity Not on file Sexual Orientation Not on file documented as of this encounter Plan of Treatment Upcoming Encounters Date Type Department Care Team (Late st Contact Info) Description 10/24/2024 2:15 PM SPLITTING MACHINE FEEDER Appointment [facility] Maternal Medicine [facility] [address] [place] [address] Amara Owens MD [address] [place] [address] 10/24/2024 2:45 PM SPLITTING MACHINE FEEDER Office Visit [facility] Maternal Medicine [facility] [address] [facility] [address] [place] [address] Amara Owens MD [address] [place] [address] documented as of this encounter Visit Diagnoses Not on filedocumented in this encounter Care Teams Product Consultant Relationship Specialty Start Date End Date No Ref-Primary, Physician PCP - General 08/07/24 documented as of this encounter
--- OUTSIDE RECORDS SUMMARY | 2024-09-09 22:21 | XMS_ITS | Encounter Summary ---
Author Organization [facility] Address [address] [place] [id number] Care Team Providers Care Professor Of Fine Art Name Role Phone No Ref-Primary, Physician Primary Care Provider Reason for Referral * Consultation (Routine) - Pending Review Specialty Diagnoses / Procedures Referred By Migel t Referred To Contact Diagnoses related condition, antepartum Gwendolyn Szymanski APRN [facility] [address] [place] [address] Phone: tel: fax: [facility] [place] [address] [facility] [address] [place] [address] Phone: tel: fax: Referral ID Status Reason Start Date Expiration Date V isits Requested Visits Authorized [id number] Pending Review 08/07/2024 08/07/2025 1 1 Question Answer MFM Consultation (unrelated to Ultrasound findings) Yes (enter details in Comments) Genetic Counseling Consultation: No fax [facility] René Crenshawphal [phone] Ultrasound NONE US PROC NONE Preferred Location: [facility] [place] DENISSE 01/31/2025 MFM Issue OTHER (enter details in Comments) - Hyperemesis, anxiety, recurrent loss, hemorrhage is early Comments There is no height or weight on file to calculate BMI. >> Patient may proceed with recommendations for further testing as directed by the Maternal Medicine Specialist >> >> If requesting Echo: M will determine appropriate location for exam due to indication. Please be aware that coverage of these services is subject to the terms and limitations of your health insurance plan. Call member services at your health plan with any benefit or coverage questions. Encounter Details Date Type Department Care Team (Late st Contact Info) Description 08/07/2024 Transcribe Orders [facility] [place] [address] [facility] [address] [place] [phone] Gwendolyn Szymanski APRN CNM [facility] [place] [address] [place] [address] related condition, antepartum (Primary Dx) Social History Tobacco Use Types [...] st Contact Info) Description 10/24/2024 2:15 PM NEEDLE SETTER Appointment [facility] [place] [address] [facility] [address] [place] [phone] Amara Owens MD [address] [place] [phone] 10/24/2024 2:45 PM NEEDLE SETTER Office Visit [facility] [address] [facility] [address] [place] [phone] Amara Owens MD [address] [place], [place] [phone] Scheduled Referrals Name Type Priority Associated Diagnoses Orde r Schedule [facility] Referral - Referral Routine related condition, antepartum Expected: 08/07/2024 (Approximate), Expires: 02/03/2025 documented as of this encounter Visit Diagnoses Diagnosis related condition, antepartum- Primary documented in this encounter Care Teams Professor Of Fine Art Relationship Specialty Start Date End Date No Ref-Primary, Physician PCP - General 08/07/24 documented as of this encounter
--- OUTSIDE RECORDS SUMMARY | 2024-09-09 22:21 | XMS_ITS | Encounter Summary ---
Author Organization [place] Address [address] [place] [address] Care Team Providers Care Vp Analytics Name Role Phone No Ref-Primary, Physician Primary Care Provider Reason for Referral * Consultation (Routine: Next available opening) - Pending Review Specialty Diagnoses / Procedures Referred By Contac t Referred To Contact Diagnoses Hyperemesis gravidarum Subchorionic hemorrhage in first trimester Kaci Price MD [address] [place] [id number] Phone: tel: fax: Referral ID Status Reason Start Date Expiration Date V isits Requested Visits Authorized [id number] Pending Review 08/08/2024 08/08/2025 1 1 * Diagnostic Imaging Ultrasound (Routine) - Pending Review Specialty Diagnoses / Procedures Referred By Contac t Referred To Contact Radiology. Diagnoses Hyperemesis gravidarum Subchorionic hemorrhage in first trimester Procedures [facility] US Comprehensive Single Kaci Price MD [address] [facility] [address] [place] [address] Phone: tel: fax: Referral ID Status Reason Start Date Expiration Date V isits Requested Visits Authorized [id number] Pending Review 08/08/2024 08/08/2025 1 1 Encounter Details Date Type Department Care Team (Late st Contact Info) Description 08/08/2024 Orders Only [facility] Maternal Medicine [facility] [address] [place], [place] [phone] Kimberly Chung RN Hyperemesis gravidarum (Primary Dx); Subchorionic hemorrhage in first trimester Social History Tobacco Use Types Packs/Day Years [...] st Contact Info) Description 10/24/2024 2:15 PM MIRROR PAINTER Appointment [facility] Maternal Medicine [facility] [address] [facility] [address] [place] [phone] Amara Owens MD [address] [place], [place] [phone] 10/24/2024 2:45 PM MIRROR PAINTER Office Visit [facility]aternal Medicine [facility] [address] [facility] [address] [place] [address] Amara Owens MD [address] [place], [place] [phone] Scheduled Referrals Name Type Priority Associated Diagnoses Orde r Schedule [facility] Genetic Counseling Referral Routine: Next available opening Hyperemesis gravidarum Subchorionic hemorrhage in first trimester Expected: 08/08/2024 (Approximate), Expires: 08/08/2025 documented as of this encounter Results * [facility] US Comprehensive Single (09/05/2024 9:37 AM MIRROR PAINTER) Anatomical Region Laterality Modality Ultrasound 09/05/2024 8:36 AM MIRROR PAINTER Impressions 09/05/2024 5:24 PM MIRROR PAINTER IMPRESSION ----- 1. Charles at 18w 5d gestational age by 6 week 0 day US. 2. No anomalies commonly detected by ultrasound were identified in the detailed anatomic survey within the limits of ultrasound. 3. Growth parameters and estimated weight were consistent with gestational age predicted by assigned DENISSE. 4. The amniotic fluid volume appeared normal. 5. On transabdominal imaging the cervix appeared long and closed. 6. There is an anterior placenta that wraps around fundus to posterior uterus. A velamentous cord insertion is identified, and vessels travel to placenta along left side of uterus. There is no evidence of vasa previa. Narrative 09/05/2024 5:24 PM MIRROR PAINTER Comprehensive ----- Pat. Name: ANA ROD Study Date: 09/05/2024 8:36am Pat. NO: [id number] Referring MD: DAGO MARROQUIN Site: Management Psychologist: Ana Otto RDMS : 2000 Age: 23 ----- INDICATION ----- Possible vasa previa and succenturiate lobe on outside ultrasound. Vaginal bleeding in second trimester. METHOD ----- Transabdominal ultrasound examination. View: Sufficient ----- Charles . Number of fetuses: 1 DATING ----- Date Details Gest. age DENISSE LMP Cycle: LMP date not known Previous U/S 06/08/2024 GA, GA 6 w + 0 d 18 w + 5 d 02/01/2025 U/S 09/05/2024 based upon AC, BPD, Femur, HC 19 w + 2 d 01/28/2025 Assigned dating based on ultrasound (GA), selected on 09/05/2024 18 w + 5 d 02/01/2025 GENERAL EVALUATION ----- Cardiac activity present. FHR 158 bpm. movements: present. Presentation: Variable Placenta: Anterior, No Previa, > 2 cm from internal os, no evidence of previa or vasa previa Umbilical cord: 3 vessel cord, velamentous cord insertion Amniotic fluid: Amount of AF: normal. MVP 5.8 cm BIOMETRY ----- BPD 44.3 mm 19w 3d Hadlock OFD 58.2 mm 19w 0d Nicolaides HC 164.0 mm 19w 1d Hadlock Cerebellum tr 19.9 mm 19w 0d Nicolaides Nuchal fold 2.2 mm AC 140.6 mm 19w 3d 71% Hadlock Femur 29.8 mm 19w 1d Hadlock Humerus 27.9 mm 19w 0d Aisha Weight Calculation: EFW 285 g 78% Hadlock EFW (lb,oz) 0 lb 10 oz EFW by Hadlock ([id number]) Head / Face / Neck Biometry: Information Security Officer 5.1 mm CM 6.8 mm Nasal bone 6.4 mm ANATOMY ----- The following structures appear normal: Head / Neck Cranium. Head size. Head shape. Lateral ventricles. Choroid plexus. Midline falx. Cavum septi pellucidi. Cerebellum. Cisterna magna. Parenchyma. Thalami. Vermis. Neck. Nuchal fold. Face Lips. Profile. Nose. Maxilla. Mandible. Orbits. Lens. Heart / Thorax 4-chamber view. RVOT view. LVOT view. 3-vessel view. 9-rbrdje-qfuewpv view. Situs. Aortic arch view. Bicaval view. Ductal arch view. Superior vena cava. Inferior vena cava. Cardiac position. Cardiac size. Cardiac rhythm. Right lung. Left lung. Diaphragm. Abdomen Abdom. wall. Cord insertion. Stomach. Kidneys. Bladder. Liver. Bowel. Genitals. Spine Cervical spine. Thoracic spine. Lumbar spine. Sacral spine. Extremities / Skeleton Arms. Right arm. Right hand. Left arm. Left hand. Legs. Right leg. Right foot. Left leg. Left foot. sex: female. MATERNAL STRUCTURES ----- Cervix Visualized Appearance: Appears Closed Approach - Transabdominal: Cervical length 32.2 mm Right Ovary Not visualized Left Ovary Not visualized RECOMMENDATION ----- Thank-you for referring your patient for ultrasound [...] She will have her OB care in [place], but would like to have serial US with [facility]. We recommend growth at least at [...] discussing the plan of care, documenting the visit in the electronic medical record, and communicating with other health careers counsellor and/or care coordination. Procedure Note Amara Owens MD - 09/05/2024 Comprehensive ----- Pat. Name: VIOLA ANA Study Date: 09/05/2024 8:36am Pat. NO: [id number] Referring MD: DAGO MARROQUIN Site: Management Psychologist: Ana Otto RDMS : 2000 Age: 23 ----- INDICATION ----- Possible vasa previa and succenturiate lobe on outside ultrasound. Vaginal bleeding in second trimester. METHOD ----- Transabdominal ultrasound examination. View: Sufficient ----- Charles . Number of fetuses: 1 DATING ----- DateDetailsGest. age DENISSE LMPCycle: LMP date not known Previous U/S 06/08/2024 GA, GA6 w + 0 d18 w + 5 d 02/01/2025 U/S 09/05/2024ased upon AC, BPD, Femur, HC19 w + 2 d 01/28/2025 Assigned dating based on ultrasound (), selected on09/05/2024 18w + 5 d 02/01/2025 GENERAL EVALUATION ----- Cardiac activity present. FHR 158 bpm. movements: present.Presentation: Variable Placenta: Anterior, No Previa, > 2 cm from internal os, no evidence ofprevia or vasa previa Umbilical cord: 3 vessel cord, velamentous cord insertion Amniotic fluid: Amount of AF: normal. MVP 5.8 cm BIOMETRY ----- BPD 44.3mm 19w 3dHadlock OFD 58.2mm 19w 0dNicolaides HC 164.0mm 19w 1dHadlock Cerebellum tr 19.9mm 19w 0dNicolaides Nuchal fold 2.2mm AC 140.6mm 19w 3d 71%Hadlock Femur 29.8mm 19w 1dHadlock Humerus 27.9mm 19w 0dJeanty Weight Calculation: EFW 285g 78%Hadlock EFW (lb,oz) 0 lb 10oz EFW by Hadlock([id number]) Head / Face / Neck Biometry: Information Security Officer 5.1mm CM 6.8mm Nasal bone 6.4mm ANATOMY ----- The following structures appear normal: Head / Neck Cranium. Head size. Head shape.Lateral ventricles. Choroid plexus. Midline falx. Cavum septi pellucidi.Cerebellum. Cisterna magna. Parenchyma. Thalami. Vermis. Neck. Nuchal fold. Face Lips. Profile. Nose. Maxilla.Mandible. Orbits. Lens. Heart / Thorax 4-chamber view. RVOT view. LVOT view.3-vessel view. 0-mczlbo-kwgaeun view. Situs. Aortic arch view. Bicavalview. Ductal arch view. Superior vena cava. Inferior vena cava.Cardiac position. Cardiac size. Cardiac rhythm. Right lung. Left lung.Diaphragm. Abdomen Abdom. wall. Cord insertion. Stomach.Kidneys. Bladder. Liver. Bowel. Genitals. Spine Cervical spine. Thoracic spine.Lumbar spine. Sacral spine. Extremities / Skeleton Arms. Right arm. Right hand. Left arm.Left hand. Legs. Right leg. Right foot. Left leg. Left foot. sex: female. MATERNAL STRUCTURES ----- Cervix Visualized Appearance: Appears Closed Approach - Transabdominal:Cervical length 32.2 mm Right Ovary Not visualized Left Ovary Not visualized RECOMMENDATION ----- Thank-you for referring your patient for ultrasound assessment. I discussed the findings on today's ultrasound with the patient and herpartner. I reviewed the limitations of ultrasound both in detectinganeuploidy and structural abnormalities. Ultrasound can routinely detect 80-90% of structuralabnormalities. She had low risk cell free DNA for genetic screeningthis . She has had evaluations urgently for vaginal bleeding. We reviewed the reassuring findings today which do not indicate anysuspicion for vasa previa, but we will continue to watch the vesselsthat course from the velamentous cord insertion. We reviewed the cord insertion as well today.I do recommend serial growth US given these findings. She will have her OB care in [place], but would like to have serial USwith [facility]. We recommend growth at least at 28 and 34 weeks, more frequentlyif any additional complications or concerns arise. Return to primary provider for continued care. If you have questions regarding today's evaluation or if we can be offurther service, please contact the [facility] Center. I spent a total of 25 minutes on the date of this encounter includingpreparing to see the patient (reviewing medical records/tests), counselingand discussing the plan of care, documenting the visit in the electronic medical record, andcommunicating with other health careers counsellor and/or carecoordination. IMPRESSION ----- 1. Charles at 18w 5d gestational age by 6 week 0 day US. 2. No anomalies commonly detected by ultrasound were identified inthe detailed anatomic survey within the limits of prenatalultrasound. 3. Growth parameters and estimated weight were consistent withgestational age predicted by assigned DENISSE. 4. The amniotic fluid volume appeared normal. 5. On transabdominal imaging the cervix appeared long and closed. 6. There is an anterior placenta that wraps around fundus to posterioruterus. A velamentous cord insertion is identified, and vesselstravel to placenta along left side of uterus. There is no evidence of vasa previa. us Kaci Price MD [facility] US ORDERABLES Edited Res ult - Final documented in this encounter Visit Diagnoses Diagnosis Hyperemesis gravidarum- Primary Mild hyperemesis gravidarum, unspecified as to episode of care Subchorionic hemorrhage in first trimester Hyperemesis gravidarum Mild hyperemesis gravidarum, unspecified as to episode of care Subchorionic hemorrhage in first trimester documented in this encounter Care Teams Vp Analytics Relationship Specialty Start Date End Date No Ref-Primary, Physician PCP - General 08/07/24 documented as of this encounter
--- OUTSIDE RECORDS SUMMARY | 2024-09-09 22:21 | XMS_ITS | Encounter Summary ---
Author Organization [facility] Address [address] [place] [address]. [place] [address] Care Team Providers Care Director Business Travel Name Role Phone No Ref-Primary, Physician Primary Care Provider Encounter Details Date Type Department Care Team (Latest Contact Info) Description 09/05/2024 Travel Social History Tobacco Use Types Packs/Day Years [...] st Contact Info) Description 10/24/2024 2:[address] MANAGER Appointment [facility]aternal [facility] [address] [facility] [address] [place] [address] Amara Owens MD [address] [place] [address] 10/24/2024 2:[address] MANAGER Office Visit [facility] [place] [address] [facility] [address] [place] [address] Amara Owens MD [address] [place] [address] documented as of this encounter Visit Diagnoses Not on filedocumented in this encounter Care Teams Director Business Travel Relationship Specialty Start Date End Date No Ref-Primary, Physician PCP - General 08/07/24 documented as of this encounter
--- OUTSIDE RECORDS SUMMARY | 2024-09-09 22:21 | XMS_ITS | Encounter Summary ---
Author Organization [facility] Address [address], [place] [address] Care Team Providers Care Management Aide Name Role Phone No Primary/Referring, Phy Primary Care Provider Unavailable Encounter Details Date Type Department Care Team (Late st Contact Info) Description 08/29/2024 2:10 PM MANAGER PROGRAM MANAGEMENT Lab Visit Laboratory at [address] [phone] Supervision of high risk in second trimester Social History Tobacco Use Types Packs/Day Years Used Date Smoking Tobacco: Former Cigarettes Q uit: 04/17/2022 Smokeless Tobacco: Never Alcohol Use Standard Drinks/Week Comments Not Currently 0 (1 standard drink = 0.6 oz pur e alcohol) Humiliation, Afraid, Rape, and Kick questionnair e Answer Date Recorded Within the last year, have y ou been afraid of your partner or ex-partner? No 08/27/2024 Within the last year, have y ou been humiliated or emotionally abused in other ways by your partner or ex-partner? No Within the last year, have y ou been kicked, hit, slapped, or otherwise physically hurt by your partner or ex-partner? No 08/27/2024 Within the last year, have y ou been raped or forced to have any kind of sexual activity by your partner or ex-partner? No 08/27/2024 Depression Answer Date Recor ded Last EPDS Total Score 8 08/29/2024 Last EPDS Self Harm Result 0-->never 08/29 Estimated Date of Delivery Comme nts Yes 02/03/2025 Based on last me nstrual period of 04/29/2024 Sex and Gender Information Value Date Recorded Sex Assigned at Not on file Gender Identity Not on file Sexual Orientation Not on file documented as of this encounter Plan of Treatment Upcoming Encounters Date Type Department Care Team (Late st Contact Info) Description 09/19/2024 10:30 AM MANAGER PROGRAM MANAGEMENT Appointment [facility] [address] [place] [address] Ariane Domínguez APRN, CNP [address] [place], [place] [phone] 09/19/2024 11:45 AM MANAGER PROGRAM MANAGEMENT Appointment [facility] [address] [place], [place] [phone] Almita Troncoso MD [address] [place], [place] [phone] documented as of this encounter Procedures Procedure Name Priority Date/Time Associated Diagnosis Comments MATERNAL SERUM AFP ONLY (ONTD Routine 08/29/2024 2:16 PM MANAGER PROGRAM MANAGEMENT Supervision of high risk in second trimester documented in this encounter Results * Maternal Serum Screen,Alpha Fetoprotein (08/29/2024 2:16 PM MANAGER PROGRAM MANAGEMENT) AFP Interpretation Results of maternal screening indicate no elevated risk for ONTD. See scanned lab report. 08/30/2024 1:45 PM MANAGER PROGRAM MANAGEMENT [facility] Blood Venipuncture / Unknown 08/29/2024 2:16 PM MANAGER PROGRAM MANAGEMENT 08/29/2024 2:16 PM MANAGER PROGRAM MANAGEMENT Belén Ray APRN, [facility] [address] [place] [id number], [facility] documented in this encounter Visit Diagnoses Diagnosis Supervision of high risk in second trimester Unspecified high-risk documented in this encounter Care Teams Management Aide Relationship Specialty Start Date End Date No Primary/Referring, Phy PCP - General 02/10/21 documented as of this encounter
--- OUTSIDE RECORDS SUMMARY | 2024-09-09 22:21 | XMS_ITS | Encounter Summary ---
Author Organization [facility] Address [address] [place] [address] Care Team Providers Care Field Cane Scaler Helper Name Role Phone No Primary/Referring, Phy Primary Care Provider Unavailable Reason for Referral * Procedure/Equipment (Routine) - Incomplete Specialty Diagnoses / Procedures Referred By Contac t Referred To Contact Diagnoses Supervision of high risk in second trimester Placenta previa with hemorrhage in second trimester Procedures MFM US OB Detailed Anatomy Ariane Domínguez APRN, COMMERCIAL ENGINEER [address] [place] [address] Referral ID Status Reason Start Date Expiration Date V isits Requested Visits Authorized [id number] Incomplete 08/29/2024 11/28/2025 1 1 ORDER SCHEDULER Reason for Visit * Reason Comments Ob Exam, Initial * Consult/Transfer Care (Routine) - New Request Specialty Diagnoses / Procedures Referred By Contac t Referred To Contact Diagnoses Vasa previa, single or unspecified fetus Leonardo Ceballos, DO [address] [place] [id number] Referral ID Status Reason Start Date Expiration Date V isits Requested Visits Authorized [id number] New Request 08/27/2024 11/26/2025 1 1 Encounter Details Date Type Department Care Team (Latest Contact Info) Description 08/29/2024 1:40 PM MILL ORDER SCHEDULER Initial Obstetrics & Gynecology at [facility] [id number] [place] [address] [phone] Ariane Domínguez, STUDENT SERVICES COUNSELOR, COMMERCIAL ENGINEER [address] [place] [address] Ob Exam, Initial Social History Tobacco Use Types Packs/Day Years [...] Sign Reading Time Taken Comments Blood Pressure 100/59 08/29/2024 1:36 PM MILL ORDER SCHEDULER Pulse 88 08/29/2024 1:36 PM MILL ORDER SCHEDULER Temperature - - Respiratory Rate - - Oxygen Saturation - - Inhaled Oxygen Concentration - - Weight 57.2 kg (126 lb) 08/29/2024 1:36 PM MILL ORDER SCHEDULER Height - - Body Mass Index - - documented in this encounter Patient Instructions * Patient Instructions* Nancie Ahmadi MA - 08/29/2024 1:40 PM MILL ORDER SCHEDULER Images from the original note were not included. Thank you for choosing us for your care. We recommend you review the following information in Your Guide to : Genetic Testing Testing Possible Complications Schedule your ultrasound now if you have not already scheduled it. Your ultrasound should be completed at 20 weeks of . Drinking any amount of alcohol during is not safe. Watch this short video by Proof Comstock: Proof: Some Think Drinking During is OK. It???s Not. - [place] video Marijuana use is never recommended while or . Learn why here: https://Bar Pass/32809.pdf is a time of transition. If you feel overwhelmed, anxious or depressed, see the followingresources: Emotional Distress During and After : https://Bar Pass/83235.pdf Resources & Support for New & Expecting Parents: https://Bar Pass/38322.pdf The 3 books provided throughout are also available digitally. Here are links to each book: Your Guide to : https://user-[place] Racers.Command Information.Wheely/DnepmlUwkwuorp-Rthx-Uxoat-cw-i-Ioztabt- Preparing for Childbirth: https://user-judo.Wheely/CyrpirIxibguzp-Zmt-Hcib-of-Motherhood Taking Care of You and Your Hill: https://user-[place] Racers.Command Information.bz/YducvsDoykxawq-P-Umt-Beginning Lowman for our free huy called ???myHealthyPregnancy?? powered by [employer]. The huy offers many quick articles and videos on , labor, , , and newborncare. Find instructions here: Or click on this link: myHealthyPregnancy tracker huy Skeeble ORDER SCHEDULER documented in this encounter Progress Notes * Belén Ray, RHIANNA, COMMERCIAL ENGINEER - 08/29/2024 1:40 PM CST Derrick Francisco is a 23 y.o., , Patient's last menstrual period was 04/29/2024., Estimated Date of Delivery: 4/19/25, who is at 17w3d weeks gestation. Ronit is here for a first ob visit transfer of care. Patient concerns: - Received care at [facility] clinics. Signed CAMPBELL. Per pt report all of her NOB labs are done. NIPT low risk. -She was seen at [facility] two days ago for leaking of fluid with lower abdominal cramping. US noted for; Placental tissue visualized anterior and posterior to the cervical os with vessels crossing over the internal cervical loss on color duplex ultrasound suggesting a succenturiate lobe with vasaprevia. Referral placed with [facility] for level II US. 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 SAB precautions reviewed. 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 Discussed to restrict these activities now, given vasa previa and in general. -Reports back pain that started last night. Rating it as severe, worse when she is standing. Pain is constant. Does have a hx of spinal fusion. She is also experiencing mild cramping that started this morning. Joseph leaking of fluid or vaginal bleeding. Denies other vaginal symptoms or urinary. Denies fever or chills. - Positive for BV. Started taking Flagyl today. Since patient's last menstrual period, reports some vaginal spotting in previous weeks. None currently. Since patient's last menstrual period, they have taken the following medication(s): Prentals, vitamin B6, Vitamin C and progesterone. Patient is experiencing the following symptoms of : mild cramping and back pain Domestic violence concerns: denies any concern Factors pertinent to this are the following: Healthy Beginnings questionnaire reviewed & discussed: no Questions: 08/29/2024 1:40 PM Questions & Infection History Have/had an eating disorder? No Exposed to skin lightening products? No Concerned about stress in your life? No Ever been forced to have sex when you didn't want to? No Has anyone ever slapped, kicked, strangled, or otherwise hurt you? No Have you had a rash or viral illness since last menstrual period? Yes Do you live with someone with TB or exposed to TB? No Other diseases exposed to? 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 No pertinent past medical history. Past Surgical History: Procedure Laterality Date SPINAL FUSION 2019 History reviewed. No pertinent family history. 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 (Patient not taking: Reported on 08/29/2024), Disp: 5 g, Rfl: 0 vitamin-ferrous fumarate-folic acid (PRENATALPLUS) 27-1 MG tablet, Take by mouth daily., Disp: , Rfl: progesterone (PROMETRIUM) 200 MG capsule, Insert 1 Capsule (200 mg) vaginally daily., Disp: , Rfl: pyridoxine (VITAMINB-6) 25 MG tablet, Take 1 Tablet (25 mg) by mouth daily., Disp: , Rfl: No current facility-administered medications on file as of 08/29/2024. Review of Systems: Complete ROS is negative unless noted in HPI. Objective BP 100/59 (BP Location: Left Arm, BP Cuff Size: Regular) Pulse 88 Wt 126 lb (57.2 kg) LMP 04/29/2024 See OB flowsheet Assessment Assessment: 23 y.o. @ 17w3d intrauterine as determined by LMP. Encounter Diagnosis Name Primary? Supervision of high risk in second trimester Yes Plan Discussed routine care, timing of visits, and the location of delivery. Discussed ordering additional NOB labs if needed once records are available. Per pt report all of her labs were collected. Discussed options for genetic screening. Ronit has chosen quad screen. Reports having low risk NIPT. Additional testing and monitoring to include: level II US with MFM. Discussed d/c of progesterone as it is not recommended for use in recurrent loss and datadoes not show that it increases live rates. Discussed comfort measures for back pain. SAB precautions given. RTC in 4 weeks, sooner if problems Belén Ray APRN, CNP 08/29/2024, 2:40 PM ORDER SCHEDULER documented in this encounter Plan of Treatment Upcoming Encounters Date Type Department Care Team (Late st Contact Info) Description 09/19/2024 10:30 AM MILL ORDER SCHEDULER Appointment [facility] [address] [place] [address] Ariane Domínguez APRN, COMMERCIAL ENGINEER [address] [place] [address] 09/19/2024 11:45 AM MILL ORDER SCHEDULER Appointment [facility] [address] [place] [address] Almita Troncoso MD [address], [place] [id number] Scheduled Orders Name Type Priority Associated Diagnoses Orde r Schedule MFM US OB Detailed Anatomy Imaging New Routine Supervision of high risk in second trimester Placenta previa with hemorrhage in second trimester Expected: 08/29/2024 (Approximate), Expires: 08/29/2025 documented as of this encounter Results * Maternal Serum Screen,Alpha Fetoprotein (08/29/2024 2:16 PM MILL ORDER SCHEDULER) AFP Interpretation Results of maternal screening indicate no elevated risk for ONTD. See scanned lab report. 08/30/2024 1:45 PM MILL ORDER SCHEDULER [facility] Blood Venipuncture / Unknown 08/29/2024 2:16 PM MILL ORDER SCHEDULER 08/29/2024 2:16 PM MILL ORDER SCHEDULER Belén Ray APRN, CNP LAB_1 Performing Organization Address City/State/[facility] Co de Phone Number [facility] [address] documented in this encounter Visit Diagnoses Diagnosis Supervision of high risk in second trimester- Primary Unspecified high-risk Placenta previa with hemorrhage in second trimester Hemorrhage from placenta previa, antepartum documented in this encounter Care Teams Field Cane Scaler Helper Relationship Specialty Start Date End Date No Primary/Referring, Phy PCP - General 02/10/21 documented as of this encounter
--- OUTSIDE RECORDS SUMMARY | 2024-09-09 22:21 | XMS_ITS | Clinical Summary ---
Author Organization [place] Address [address] [place] [address] Care Team Providers Care Penciller Name Role Phone No Ref-Primary, Physician Primary Care Provider Allergies No known active allergies Medications order for DMEIndications: Shoulder injury, left, initial encounter Shoulder sling 1 Units 04/18/2017 Active Encounters Date Type Department Care Team Description 09/05/2024 9:15 AM GOLD MINER Office Visit [facility] Medicine [facility] [address] [place] [address] Amara Owens MD Velamentous insertion of umbilical cord in second trimester (Primary Dx) 09/05/2024 8:00 AM GOLD MINER Office Visit [facility] [address] [place] [phone] Amara Owens MD Maher, Mackenzie A, GC Hyperemesis gravidarum (Primary Dx); Subchorionic hemorrhage in first trimester; Recurrent loss 09/05/2024 7:49 AM GOLD MINER - 09/05/2024 11:59 PM GOLD MINER Hospital Encounter [facility] [address] [facility] [address] [place] [address] Amara Owens MD Hyperemesis gravidarum; Subchorionic hemorrhage in first trimester Discharge Disposition: Home or Self Care 09/05/2024 Travel 08/28/2024 PRE VISIT [facility] [address] [place] [phone] Hamida Fan, SUKUMAR Genetic Counseling (Hyperemesis, Anxiety, Recurrent loss, KVNG 1st trimester); Ultrasound (L2-Hyperemesis, Anxiety, Recurrent loss, KVNG 1st trimester) 08/08/2024 Orders Only [facility] [address] [place] [address] Kimberly Chung RN Hyperemesis gravidarum (Primary Dx); Subchorionic hemorrhage in first trimester 08/07/[address] [facility] Information Management [address] [facility] [address] [place] [address] Scan, Non-Provider 08/07/2024 Transcribe Orders [facility] Medicine [place] [address] [place] [phone] Gwendolyn Szymanski APRN CNM related condition, antepartum (Primary Dx) from Last 3 Months Social History Tobacco [...] Sign Reading Time Taken Comments Blood Pressure 107/69 04/18/2017 2:58 PM CDT Pulse 89 04/18/2017 2:58 PM CDT Temperature 36.6 C (97.9 F) 04/18/2017 2:58 PM CDT Respiratory Rate - - Oxygen Saturation 97% 04/18/2017 2:58 PM CDT Inhaled Oxygen Concentration - - Weight 53.1 kg (117 lb) 04/18/2017 2:58 PM CDT Height - - Body Mass Index - - Plan of Treatment Upcoming Encounters Date Type Department Care Team (Late st Contact Info) Description 10/24/2024 2:15 PM GOLD MINER Appointment [facility] Medicine [place] [address] [facility] [address] [place] [phone] Amara Owens MD [address] [place], [place] [address] 10/24/2024 2:45 PM GOLD MINER Office Visit [facility] [place] [address] [facility] [address] [place] [phone] Amara Owens MD [address] [place], [place] [address] Health Maintenance Due Date Last Done Comments ADVANCE CARE PLANNING 2001 ANNUAL REVIEW OF HM ORDERS 2001 YEARLY PREVENTIVE VISIT 2001 HIV SCREENING 2016 HEPATITIS C SCREENING 2019 PHQ-2 (once per calendar year) 2023 COVID-19 Vaccine ( season) 2024 INFLUENZA VACCINE (#1) 2024 08/02/2014, 2010 MATERNAL SCREENING DISCUSSION 07/05/2024 CHLAMYDIA SCREENING 08/27/2025 08/27/2024 PAP 02/24/2026 02/24/2023 DTAP/TDAP/TD IMMUNIZATION (8 - Td or Tdap) 06/09/2027 06/09/2017, 06/09/2013, 12/06/2006, Additional history exists HEPATITIS B IMMUNIZATION Completed 003, 04/03/2002, 01/30/2002 Pneumococcal Vaccine: Pediatrics (0 to 5 Years) and At-Risk Patients (6 to 64 Years) Aged Out 05/18/2003, 06/02/2002, 04/03/2002, Additional history exists No longer eligible based on patient's age to complete this topic MENINGITIS IMMUNIZATION Completed 04/18/20, 04/18/2018, 06/09/2013, Additional history exists HPV IMMUNIZATION Completed 02/24/2023, 11/2017, 12/07/2016 RSV MONOCLONAL ANTIBODY Aged Out No l onger eligible based on patient's age to complete this topic RSV VACCINE (No Doses Required) Completed Procedures Procedure Name Priority Date/Time Associated Diagnosis Comments MFM US COMPREHENSIVE SINGLE Routine 09/05/2024 9:37 AM GOLD MINER Hyperemesis gravidarum Subchorionic hemorrhage in first trimester from Last 3 Months Results * [facility] US Comprehensive Single (09/05/2024 9:37 AM GOLD MINER) Anatomical Region Laterality Modality Ultrasound 09/05/2024 8:36 AM GOLD MINER Impressions 09/05/2024 5:24 PM GOLD MINER IMPRESSION ----- 1. Charles at 18w 5d [...] of vasa previa. Narrative 09/05/2024 5:24 PM GOLD MINER Comprehensive ----- Pat. Name: ANA ROD Study Date: 09/05/2024 8:36am Pat. NO: [id number] Referring MD: GWENDOLYN SZYMANSKI Site: Overlock Sewing Machine Operator: Ana Otto RDMS : 2000 Age: 23 [...] Assigned dating based on ultrasound (), selected on 09/05/2024 18 w + 5 [...] 0 lb 10 oz EFW by Hadlock ([id number]) Head / Face / Neck Biometry: Journeyman Electrician 5.1 mm CM 6.8 mm Nasal bone 6.4 mm ANATOMY ----- The following structures appear normal: Head / Neck Cranium. Head size. Head shape. Lateral ventricles. Choroid plexus. Midline falx. Cavum septi pellucidi. Cerebellum. Cisterna magna. Parenchyma. Thalami. Vermis. Neck. Nuchal fold. Face Lips. Profile. Nose. Maxilla. Mandible. Orbits. Lens. Heart / Thorax 4-chamber view. RVOT view. LVOT view. 3-vessel view. 9-wsvuhv-jxxmcly view. Situs. Aortic arch view. Bicaval view. [...] She will have her OB care in [place], but would like to have serial US with [facility]. We recommend growth at least at [...] medical record, and communicating with other health healthcare account manager and/or care coordination. Procedure Note Amara Owens MD - 09/05/2024 Comprehensive ----- Pat. Name: ANA ROD Study Date: 09/05/2024 8:36am Pat. NO: [id number] Referring MD: GWENDOLYN SZYMANSKI Site: Overlock Sewing Machine Operator: Ana Otto RDMS : 2000 Age: 23 [...] Assigned dating based on ultrasound ([place]), selected on09/05/2024 18w + 5 d 02/01/2025 [...] EFW (lb,oz) 0 lb 10oz EFW by Hadlock([id number]) Head / Face / Neck Biometry: Journeyman Electrician 5.1mm CM 6.8mm Nasal bone 6.4mm ANATOMY ----- The following structures appear normal: Head / Neck Cranium. Head size. Head shape.Lateral ventricles. Choroid plexus. Midline falx. Cavum septi pellucidi.Cerebellum. Cisterna magna. Parenchyma. Thalami. Vermis. Neck. Nuchal fold. Face Lips. Profile. Nose. Maxilla.Mandible. Orbits. Lens. Heart / Thorax 4-chamber view. RVOT view. LVOT view.3-vessel view. 3-qqutnn-ceaavdc view. Situs. Aortic arch view. Bicavalview. Ductal [...] She will have her OB care in [place], but would like to have serial USwith [facility]. We recommend growth at least at [...] electronic medical record, andcommunicating with other health healthcare account manager and/or carecoordination. IMPRESSION ----- 1. Charles at [...] There is no evidence of vasa previa. Kaci Price MD [facility] ORDERABLES Edited Res ult - Final from Last 3 Months Insurance [employer] * Guarantor: Ana Rod Account Type Relation to Patient Date of Phone Billing Address Personal/Family Self 2000 none (Work) [phone] [facility] [address] [place] [id number] [employer] Care Teams Penciller Relationship Specialty Start Date End Date No Ref-Primary, Physician PCP - General 08/07/24
--- OUTSIDE RECORDS SUMMARY | 2024-09-09 22:21 | XMS_ITS | Encounter Summary ---
Author Organization [place] Address [facility] access hospital0 [facility] [place] [address] Care Team Providers Care Medical Office Assistant Name Role Phone No Ref-Primary, Physician Primary Care Provider Reason for Visit * Reason Comments Genetic Counseling Recurrent loss * Consultation (Routine: Next available opening) - Pending Review Specialty Diagnoses / Procedures Referred By Contac t Referred To Contact Diagnoses Hyperemesis gravidarum Subchorionic hemorrhage in first trimester Kaci Price MD [address] [place] [address] Phone: tel: fax: Referral ID Status Reason Start Date Expiration Date V isits Requested Visits Authorized [id number] Pending Review 08/08/2024 08/08/2025 1 1 Encounter Details Date Type Department Care Team (Late st Contact Info) Description 09/05/2024 8:00 AM GTA Office Visit [facility] [place] [address] [place] [address] Amara Owens MD [address] [place] [address] [address] [place], [place] [id number] Elizabeth Carlin GC Maternal Medicine [address] [place] [address] [address] [place], [place] [id number] Hyperemesis gravidarum (Primary Dx); Subchorionic hemorrhage in first trimester; Recurrent loss Social History Tobacco Use Types Packs/Day Years [...] as of this encounter Progress Notes * Elizabeth Carlin, GC - 09/05/2024 8:00 AM CST [facility] Genetic Counseling Consult Patient: Ronit Francisco Date of : 2000 Date of Service: 09/05/24 Ronit was seen at the [facility] for genetic consultation. The indication for genetic counseling is recurrent loss. The patient was accompanied to this visit by their partner, Umer . IMPRESSION/ PLAN 1. Ronit had genetic screening earlier in this . Their first trimester screen result was screen negative (low risk) for screened conditions 2. During today's [facility] visit, Ronit had a genetic counseling session only. Screening and diagnostic testing was discussed and declined. 3. 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 She had chromosome analysis that was normalfemale karyotype with no numeric or structural chromosome abnormalities. Umer has not had a chromosome analysis done and we reviewed that option today. The couple would like to think about it and will get back to me if they would like pursue testing. 4. Ronit had a level II comprehensive anatomy ultrasound today. Please see the ultrasound report for further details. 5. Further recommendation include a follow-up ultrasound with [facility]. The upcoming ultrasound has beenscheduled for 10/24/2024. HISTORY /Parity: Ronit's history is significant for: SAB 01/19/2024 D&C chromosomes on POC normal female karyotype SAB 07/05/2021 D&C SAB Recurrent miscarriage is defined as three or more clinically recognized consecutive or non-consecutive losses occurring prior to viability (<24 weeks). At least 10-15% of the recognized pregnancies end in miscarriage, with most losses occurring in the first trimester. The rate of miscarriage less than 8 weeks gestation may be even greater as some women may not recognize that they are . Around half of miscarriages that occur before 20 weeks gestation are caused by chromosome abnormalities. The risk for a miscarriage increases with advancing maternal age due to a higher incidence of conceptuses with a chromosomal aneuploidy. The risk may approach 75% in women who are 45 years of age and older. In about 50% of couples with recurrent loss, the etiology remains unknown despite a thorough evaluation and is therefore classified as idiopathic. It is estimated that couples with idiopathic recurrent pregnacy loss can have up to a 75% chance of having a successful . For couples who have experienced three or more unexplained losses, it hasbeen estimated that around 2-5% of these couples have this history related to a chromosome in one of the partners. Chromosome analysis on parents is possible by obtaining a karyotype on peripheral blood in which the chromosomes are sorted and counted in the laboratory. Ronit had chromosome analysis that was normal female karyotype with no numeric or structural chromosome abnormalities detected. Reviewed that the patient has a normal polymorphic chromosome variant 9: This indicates that chromosome 9 has a variation. Polymorphic means there are different forms or variations of this chromosome that can occur in the general population. The word normal suggests that the variation is a common or non-pathological difference, meaning it's not associated with any disease or health issues. Therefore this would not be expected to be the reason behind the patients history or recurrent loss. Umer has not had a chromosome analysis done and we reviewed that option today. The couple would like to think about it and will get back to me if they would like pursue testing. CURRENT Current Age: [age] year old Age at Delivery: 24 year old DENISSE: 01/31/2025, by Ultrasound Gestational Age: 18w6d This is a single gestation. This was conceived spontaneously. Ronit reports no bleeding, complications, illnesses, fever or exposure concerns with this . MEDICAL HISTORY Ronit???s reported medical history is not expected to impact management or risks to development. FAMILY HISTORY A three-generation pedigree was obtained today and is scanned under the Media tab in whoactually. The family history was reported by Ronit and their partner. The following significant findings were reported today: Ronit's brother has ADHD The father of the , Umer (25yrs), is healthy Umer's brother has learning difficulties Umer's mother has a cleft lip and palate We reviewed that orofacial clefts are a relatively common defect, occurring in approximately 1 in 1,000 live births. They can be isolated or part of a broader underlying genetic syndrome. When isolated they are thought to be multifactorial, resulting from a combination of genetic and environmental factors. Based on the information provided, it appears that this was likely an isolated defect in Umer's mom. Given that there is thought to be a genetic component and this is a second degree relative the , the risk may be increased. Current estimates suggest a <1% chance forsecond degree relatives of the affected individual in the family. We reviewed the benefits and limitations of ultrasound as a screening tool for orofacial clefting in the . The couple was encouraged to share this family history information with their pig machine operator helper. Umer's father has multiple sclerosis. Multiple sclerosis (MS) is an autoimmune disease of the central nervous system, characterized by focal inflammation, demyelination, and axonal injury. MS is thought to be multifactorial, meaning a combination of environmental factors and variations in dozens of genes are involved in the developmentof MS. Given that there is a genetic component, the risk of developing MS is higher for siblings orchildren of a person with the condition than for the general population. Otherwise, the reported family history is unremarkable for multiple miscarriages, stillbirths, intellectual disabilities, known genetic conditions, and consanguinity. RISK ASSESSMENT FOR CHROMOSOME CONDITIONS We explained that the risk for chromosome abnormalities increases with maternal age. We discussed specific features of common chromosome abnormalities, including Down syndrome, trisomy 13, trisomy 18, and sex chromosome trisomies. At age 24 at midtrimester, the risk to have a baby with Down syndrome is 1 in 1114. At age 24 at midtrimester, the risk to have a baby with any chromosome abnormality is 1 in 557. Ronit had genetic screening earlier in this . Their non-invasive test was screen negative or low risk for screened conditions RISK ASSESSMENT FOR INHERITED CONDITIONS We discussed that every has a chance to have an inherited single-gene condition, even when there is no family history of that condition. In fact, approximately 90% of couples at an increased reproductive risk for an inherited condition have no family history of that condition. The averageperson may be a carrier for 5-10 different genetic variants that can increase the chance for their pregnancies to have that condition. We discussed autosomal recessive conditions and X-linked conditions. Autosomal recessive conditions happen when a mutation has been inherited from the egg and spermand include conditions like cystic fibrosis, thalassemia, hearing loss, spinal muscular atrophy, and more. X-linked conditions happen when a mutation has been inherited from the egg and include conditions like fragile X syndrome. We reviewed that when both biological parents carry a harmful genetic change in a gene associated with autosomal recessive inheritance, each of their pregnancies has a 1 in 4 (25%) chance to be affected by that condition. With x- linked conditions, the specific risk generally depends on the chromosomal sex of the fetus, with XY individuals (generally male) being most severely affected. screening was reviewed. About [place] [facility] Scre[facility] The patient had previous carrier screening for 5 conditions through [facility]. A copy of the report was available for review today. The patient's partner did not complete carrier screening as well. We reviewed the option for larger carrier screening panels today which were declined. GENETIC TESTING OPTIONS Genetic testing during a includes screening and diagnostic procedures. Screening tests are non-invasive which means no risk to the and includes ultrasounds and blood work. The benefits and limitations of screening were reviewed. Screening tests provide a risk assessment (chance) specific to the for certain chromosome abnormalities but cannot definitively diagnose or exclude a chromosome abnormality. Follow-up genetic counseling and consideration of diagnostic testing is recommended with any abnormal screening result. Diagnostic testing during a is more certain and can test for more conditions. However, the tests do have a risk of miscarriage that requires careful consideration. These tests can detect chromosome ab normalities with greater than 99% certainty. Results can be compromised by maternal cell contamination or mosaicism and are limited by the resolution of current genetic testing technology. There is no screening or diagnostic test that detects all forms of defects or intellectual disability. We discussed the following screening options: Carrier screening Risk assessment for certain autosomal recessive and x-linked conditions. These conditions are generally infantile- or childhood-onset conditions. Can be done any time during the or prior to . Can screen for over 500 different genetic conditions. Is not intended to diagnosis a condition in the carrier parent. Even with negative results, a residual risk for screened conditions remains. We discussed the following ultrasound options: Comprehensive level II ultrasound ( Anatomy Ultrasound) Ultrasound done between 18-20 weeks gestation Screens for major defects and markers for aneuploidy (like trisomy 21 and trisomy 18) Includes looking at the fetus/baby's growth, heart, organs (stomach, kidneys), placenta, and amniotic fluid We discussed the following diagnostic options: Amniocentesis Invasive diagnostic procedure done after 15 weeks gestation The procedure collects a small sample of amniotic fluid for the purpose of chromosomal testing and/or other genetic testing Diagnostic result; more than 99% sensitivity for chromosome abnormalities Testing for AFP in the amniotic fluid can test for open neural tube defects It was a pleasure to be involved with [facility]. [id number] time of the meeting was 30 minutes. ELIZABETH CARLIN MS, [facility] Genetic Counselor [facility] Office: [phone] MFM: [phone] [facility] documented in this encounter Plan of Treatment Upcoming Encounters Date Type Department Care Team (Late st Contact Info) Description 10/24/2024 2:15 PM GTA Appointment [facility] [address] [place] [address] Amara Owens MD [address] [place], [place] [id number] 10/24/2024 2:45 PM GTA Office Visit [facility] [address] [place] [address] Amara Owens MD [address] [place], [place] [id number] documented as of this encounter Visit Diagnoses Diagnosis Hyperemesis gravidarum- Primary Mild hyperemesis gravidarum, unspecified as to episode of care Subchorionic hemorrhage in first trimester Recurrent loss Reserved for inherently not codable concepts WITHOUT codable children documented in this encounter Care Teams Medical Office Assistant Relationship Specialty Start Date End Date No Ref-Primary, Physician PCP - General 08/07/24 documented as of this encounter
--- OUTSIDE RECORDS SUMMARY | 2024-09-09 22:21 | XMS_ITS | Clinical Summary ---
Author Organization [facility] Address [address], [place] [address] Care Team Providers Care Internet Sales Director Name Role Phone No Primary/Referring, Phy Primary Care Provider Unavailable Source Comments You are receiving this document as you are listed as the primary care provider,follow-up provider, or the patient has been referred to you for consultation.This is in compliance with the Medicare and[facility] EHR Incentive Program,which states Providers who transition their patient to another setting of careor provider of care or refers their patient to another provider of care shouldprovide summary care record for each transition of care or referral. Phyzios Allergies Active Allergy Reactions Criticality Noted Date Comments Droperidol Other, see comments 02/11/2021 Akithisia reaction (received 2.5mg while claustrophobic in MRI and had significant reaction requiring diphenhydramine) Medications Medication Sig Dispensed Refills Start Date End Date Status progesterone (PROMETRIUM) 200 MG capsule Insert 1 Capsule (200 mg) vaginally daily. Active vitamin-ferrous fumarate-folic acid (PRENATALPLUS) 27-1 MG tablet Take by mouth daily. Active pyridoxine (VITAMINB-6) 25 MG tablet Take 1 Tablet (25 mg) by mouth daily. Active ascorbic acid (VITAMINC) 250 MG tablet Take 2 Tablets (500 mg) by mouth daily. Active cyclobenzaprine (FLEXERIL) 5 MG tablet Take 1-2 Tablets (5-10 mg) by mouth two times daily as needed for Muscle Spasms. 20 Tablet 4 08/28/20 24 Discontinued metroNIDAZOLE (FLAGYL) 500 MG tablet Take 1 Tablet (500 mg) by mouth two times a day for 7 days. 14 Tablet 4 08/27/20 24 Discontinued(*Pa tient decision or formulary issue) metroNIDAZOLE (METROGEL-VAGIN AL) 0.75 % vaginal gel Insert 1 Applicatorful vaginally daily at bedtime for 5 days. 5 g 4 08/27/20 24 Discontinued metroNIDAZOLE (METROGEL-VAGIN AL) 0.75 % vaginal gel Insert 1 Applicatorful vaginally daily at bedtime for 5 days. 5 g 4 09/01/20 24 Additional Information Patient not taking.Reported on 08/29/2024 metroNIDAZOLE (FLAGYL) 500 MG tablet Take 1 Tablet (500 mg) by mouth two times a day for 7 days. 14 Tablet 4 09/04/20 24 Active Problems Problem Noted Date Diagnosed Date Vaginal discharge during in second tri mester 08/27/2024 Vasa previa 08/27/2024 BV (bacterial vaginosis) 08/27/2024 Placenta succenturiate lobe affecting fetus 08/18 Estimated Date of Delivery Comme nts Yes 02/03/2025 Based on last me nstrual period of 04/29/2024 Encounters Date Type Department Care Team Description 09/01/2024 E-Visit [facility] Maternal Medicine [address] [place] [address] Mychart, Generic Provider 08/30/2024 Telephone Obstetrics & Gynecology at [address] [phone] Ariane Domínguez, LINE CLEARANCE FOREMAN, ARMORED CAR MESSENGER Questions 08/29/2024 2:10 PM ORGAN BUILDER Lab Visit Laboratory at [address] [phone] Supervision of high risk in second trimester 08/29/2024 1:40 PM ORGAN BUILDER Initial Obstetrics & Gynecology at [address] [phone] Ariane Domínguez, LINE CLEARANCE FOREMAN, ARMORED CAR MESSENGER Ob Exam, Initial 08/29/2024 E-Visit Obstetrics & Gynecology at [facility] [address] [place] [phone] Belén Ray APRN, CNP 08/29/2024 Telephone Obstetrics & Gynecology at [facility] [address] [place] [phone] Belén Ray APRN, CNP Medication Follow Up 08/28/2024 Telephone [facility] [address] [place] [address] Garry Bergman, PERMANENT MOLD SUPERVISOR REQUEST 08/28/2024 Telephone Obstetrics & Gynecology at [facility] [address] [place] [phone] Ariane Domínguez APRN, CNP ,1st Ob 08/27/2024 4:45 PM ORGAN BUILDER Ancillary Procedure [facility] Ul[facility]ound [address] [place] [address] 08/27/2024 4:16 PM ORGAN BUILDER - 08/27/2024 9:53 PM ORGAN BUILDER Emergency [facility] Emergency Dept [address] [place] [address] Alicja Aleman MD Paddock, Michael T, DO BV (bacterial vaginosis) (Primary Dx); Vasa previa, single or unspecified fetus; Vaginal discharge during in second trimester Discharge Disposition: Home from Last 3 Months [...] Comments Blood Pressure 100/59 08/29/2024 1:36 PM ORGAN BUILDER Pulse 88 08/29/2024 1:36 PM ORGAN BUILDER Temperature 36.5 C (97.7 F) 08/27/2024 4:08 PM ORGAN BUILDER Respiratory Rate 20 08/27/2024 4:08 PM ORGAN BUILDER Oxygen Saturation 98% 08/27/2024 5:15 PM ORGAN BUILDER Inhaled Oxygen Concentration - - Weight 57.2 kg (126 lb) 08/29/2024 1:36 PM ORGAN BUILDER Height - - Body Mass Index - - Plan of Treatment Upcoming Encounters Date Type Department Care Team (Late st Contact Info) Description 09/19/2024 10:30 AM ORGAN BUILDER Appointment [facility] [address] [place] [address] Ariane Domínguez, LINE CLEARANCE FOREMAN, ARMORED CAR MESSENGER [address] [place] [address] 09/19/2024 11:45 AM ORGAN BUILDER Appointment [facility] [address] [place] [address] Almita Troncoso MD [address] [place], [place] [phone] Health Maintenance Due Date Last Done Comments Cervical Cancer Screening Due 2001 Hep C Screening (Preventive Services) 2001 HIV Screening (Preventive Services) 2017 Adult Preventive Visit 2019 HepB (1) 2020 COVID-19 Vaccine ( season) 2024 Influenza (#1) 2024 08/02/2014, 07/29/2011 Chlamydia 08/27/2025 08/27/2024 DTaP/Tdap/Td (8 - Tdap) 06/09/2027 06/09/20, 06/09/2013, 12/06/2006, Additional history exists Zoster/Shingles (1 of 2) 2051 Hib Completed 12/06/2002, 03/18, 01/30/2002 Pneumococcal Aged Out 05/18/2003, 05/18, 04/03/2002, Additional history exists No longer eligible based on patient's age to complete this topic IPV (Polio) Completed 12/06/2006, 05/18, 04/03/2002, Additional history exists HepA Completed 12/25/2013, 06/09/2013 MCV4 Completed 04/18/2018, 06/09/2013 HPV Vaccine Completed 02/24/2023, 11/2017, 12/07/2016 RSV Aged Out No longer eligi ble based on patient's age to complete this topic Procedures Procedure Name Priority Date/Time Associated Diagnosis Comments MATERNAL SERUM AFP ONLY (ONTD Routine 08/29/2024 2:16 PM ORGAN BUILDER Supervision of high risk in second trimester CHLAMYDIA & GC (14 YEARS & OLDER) STAT 08/27/2024 8:15 PM ORGAN BUILDER VAGINITIS PANEL STAT 08/27/2024 8:15 PM ORGAN BUILDER US OB LIMITED SINGLE STAT 08/27/2024 6:07 PM ORGAN BUILDER UA CONDITIONAL UC STAT 08/27/2024 6:0 3 PM ORGAN BUILDER ANTIBODY SCREEN STAT 08/27/2024 5:11 PM ORGAN BUILDER BLOOD TYPE STAT 08/27/2024 5:11 PM ORGAN BUILDER TYPE AND SCREEN STAT 08/27/2024 5:11 PM ORGAN BUILDER COMPLETE BLOOD COUNT-NO DIFF Routine 08/27/2024 5:11 PM ORGAN BUILDER from Last 3 Months Results * Maternal Serum Screen,Alpha Fetoprotein (08/29/2024 2:16 PM ORGAN BUILDER) Pathologist [facility] AFP Interpretation Results of maternal screening indicate no elevated risk for ONTD. See scanned lab report. 08/30/2024 1:45 PM ORGAN BUILDER [facility] Blood Venipuncture / Unknown 08/29/2024 2:16 PM ORGAN BUILDER 08/29/2024 2:16 PM ORGAN BUILDER Belén Ray APRN, CNP LAB_1 Performing Organization Address [facility]/ZIP Co de Phone Number [facility] [address] * (ABNORMAL) Vaginitis Panel (08/27/2024 8:15 PM ORGAN BUILDER) [facility] Bacterial Vaginosis Positive(A) Negative 08/27/2024 9:23 PM ORGAN BUILDER [facility] Catia Species Not Detected Not Detected 08/27 9:23 PM ORGAN BUILDER [facility] Catia glabrata/krusei Not Detected Not Detected 08/27/2024 9:23 PM ORGAN BUILDER [facility] Trichomonas vaginalis Not Detected Not Detected 08/27/2024 9:23 PM ORGAN BUILDER [facility] Swab STD SPECIMEN FROM VAGINA / Unknown Non-blood Collection / Unknown 08/27/2024 8:15 PM ORGAN BUILDER 08/27/2024 8:17 PM ORGAN BUILDER [facility] 08/27/2024 9:23 PM ORGAN BUILDER Test performed by Real-Time PCR Peyton Omalley PA-C LAB_1 [place] [address], [facility] * Chlamydia & GC (14 Years and Older): Vagina (08/27/2024 8:15 PM ORGAN BUILDER) [facility] Chlamydia Trachomatis STD Not Detected Not Detected 08/27/2024 9:54 PM ORGAN BUILDER [facility] N. gonorrhoeae STD Not Detected Not Detected 08/27/2024 9:54 PM ORGAN BUILDER [facility] Swab STD SPECIMEN FROM VAGINA / Unknown Non-blood Collection / Unknown 08/27/2024 8:15 PM ORGAN BUILDER 08/27/2024 8:17 PM ORGAN BUILDER Narrative [facility] - 08/27/2024 9:54 PM ORGAN BUILDER Test performed by Real-Time PCR Peyton Omalley PA-C LAB_1 Performing Organization Address City/State/[facility] Co [place] [address], [facility] * US OB Limited Single (08/27/2024 6:07 PM ORGAN BUILDER) Anatomical Region Laterality Modality Pelvis Ultrasound 08/27/2024 6:07 PM ORGAN BUILDER Narrative 08/27/2024 7:09 PM ORGAN BUILDER EXAM: US OB LIMITED SINGLE LOCATION: [facility] DATE: 08/27/2024 INDICATION: 18 weeks with blood tinged discharge, BLEEDING COMPARISON: None. TECHNIQUE: Transabdominal and transvaginal ultrasound performed. FINDINGS: Single living fetus, in a transverse lie. HEART RATE: 144 bpm. Amniotic fluid volume is within normal limits. PLACENTA: Placental tissue is visualized anterior and posterior to the cervix. No definite placental position is visualized arising internal cervical os. However on color duplex there are vessels crossing between both placenta lobes over the internal cervical os.. No previa. CERVIX: 3.4 cm. No cervical dilatation.. BIOMETRY: Biparietal Diameter: 14.1 cm, 18 weeks 4 days Head Circumference: 14.6 cm, 17 weeks 6 days Abdominal Circumference: 12 cm, 17 weeks 5 days Femur Length: 2.7 cm, 18 weeks 2 days FL/AC Ratio: 23% N=20-24% HC/AC Ratio: 1.21 N=1.07-1.29 FL/BPD Ratio: 65% N=71-87% Estimated Weight: 218 g EFW Percentile: 78% EDC by This US exam: 01/27/2025 Composite Age by This US exam: 18 weeks 1 day IMPRESSION: 1. Single intrauterine gestation with an estimated gestational age of 18 weeks 1 day. Estimated date of delivery: 01/27/2025. 2. Placental tissue visualized anterior and posterior to the cervical os with vessels crossing over the internal cervical loss on color duplex ultrasound suggesting a succenturiate lobe with vasa previa. Procedure Note Noe Adames MD - 08/27/2024 EXAM: US OB LIMITED SINGLE LOCATION: [facility] DATE: 08/27/2024 INDICATION: 18 weeks with blood tinged discharge, BLEEDING COMPARISON: None. TECHNIQUE: Transabdominal and transvaginal ultrasound performed. FINDINGS: Single living fetus, in a transverse lie. HEART RATE: 144 bpm. Amniotic fluid volume is within normal limits. PLACENTA: Placental tissue is visualized anterior and posterior to thecervix. No definite placental position is visualized arising internalcervical os. However on color duplex there are vessels crossing betweenboth placenta lobes over the internal cervical os.. No previa. CERVIX: 3.4 cm. No cervical dilatation.. BIOMETRY: Biparietal Diameter: 14.1 cm, 18 weeks 4 days Head Circumference: 14.6 cm, 17 weeks 6 days Abdominal Circumference: 12 cm, 17 weeks 5 days Femur Length: 2.7 cm, 18 weeks 2 days FL/AC Ratio: 23% N=20-24% HC/AC Ratio: 1.21 N=1.07-1.29 FL/BPD Ratio: 65% N=71-87% Estimated Weight: 218 g EFW Percentile: 78% EDC by This US exam: 01/27/2025 Composite Age by This US exam: 18 weeks 1 day IMPRESSION: 1. Single intrauterine gestation with an estimated gestational age of 18weeks 1 day. Estimated date of delivery: 01/27/2025. 2. Placental tissue visualized anterior and posterior to the cervical oswith vessels crossing over the internal cervical loss on color duplexultrasound suggesting a succenturiate lobe with vasa previa. Peyton Omalley PA-C RAD US * (ABNORMAL) UA Conditional UC: Clean Catch (08/27/2024 6:03 PM ORGAN BUILDER) Urine Culture Comment 08/27/2024 6:36 PM ORGAN BUILDER [facility] Urine Color Yellow 08/27/2024 6:36 PM ORGAN BUILDER [facility] Urine Clarity Clear Clear 08/27/2024 6:36 PM ORGAN BUILDER [facility] Specific [place], Urine 1.026 <1.030 08/27/2024 6:36 PM [facility] PH Urine 5.5 5.0 - 8.0 08/27/2024 6:36 PM [facility] Protein, Urine Qual (mg/dL) 10 Negative, 10 , 20 08/27/2024 6:36 PM [facility] Glucose Urine Qual (mg/dL) Normal (Negative) Normal (Negative), 30 , 50 08/27/2024 6:36 PM [facility] Ketones, Urine (mg/dL) Negative Negative, Trace 08/27/2024 6:36 PM [facility] Urobilinogen, Urine (EU/dL) Normal (Negative) Normal (Negative) 08/27/2024 6:36 PM [facility] Bilirubin Urine (mg/dL) Negative Negative 08/27/2024 6:36 PM [facility] Blood, Urine (mg/dL) Negative Negative, 0.03 (Trace) 08/27/2024 6:36 PM [facility] Nitrite Urine Negative Negative 08/27/2024 6:36 PM [facility] Leukocyte Esterase, Urine (Sarath/uL) Negative Negative, 25 (Trace) 08/27/2024 6:36 PM [facility] Red Blood Cells 3 0 - 3 /HPF 08/27/2024 6:36 PM [facility] White Blood Cells 5 0 - 5 /HPF 08/27/2024 6:36 PM [facility] Squamous Epithelial Cells Few None Seen, Occasional, Few /HPF 08/27/2024 6:36 PM [facility] Mucus Present(A) None Seen /HPF 08/27/2024 6:36 PM [facility] Crystals, Calcium Oxalate Present(A) None Seen 08/27/2024 6:36 PM [facility] Source Clean Catch 08/27/2024 6:36 PM [facility] Urine URINE SPECIMEN COLLECTION, CLEAN CATCH / Unknown Non-blood Collection / Unknown 08/27/2024 6:03 PM ORGAN BUILDER 08/27/2024 6:[address] [facility] - 08/27/2024 6:36 PM [facility] The qualitative interpretive guidance provided (e.g., small, moderate, large) is intended to aid in quantitative result interpretation. It is not itself an FDA-cleared test result. Peyton Omalley PA-C LAB_[address] * Antibody Screen (08/27/2024 5:11 PM ORGAN BUILDER) Pathologist [facility] Antibody Screen Interpretation Negative 08/27/2024 6:50 PM ORGAN BUILDER [facility] Blood Venipuncture / Unknown 08/27/2024 5:11 PM ORGAN BUILDER 08/27/2024 5:16 PM ORGAN BUILDER Peyton Omalley PA-C LAB_1 Performing Organization Address City/[facility]/ZIP Co de Phone Number [facility] [address] * Blood Type (08/27/2024 5:11 PM ORGAN BUILDER) Pathologist [facility] ABO A 08/27/2024 6:50 PM ORGAN BUILDER [facility] RH Positive 08/27/2024 6:50 PM ORGAN BUILDER [facility] Blood Venipuncture / Unknown 08/27/2024 5:11 PM ORGAN BUILDER 08/27/2024 5:16 PM ORGAN BUILDER Peyton Omalley PA-C LAB_1 Performing Organization Address [facility] de Phone Number [facility] [address] * (ABNORMAL) Complete Blood Count-No Diff (08/27/2024 5:11 PM ORGAN BUILDER) [facility] WBC 8.6 3.5 - 10.5 x10(9)/L 08/27/2024 5:22 PM [facility] RBC 3.71(L) 3.90 - 5.03 x10(12)/L 08/27/2024 5:22 PM [facility] Hemoglobin 11.8(L) 12.0 - 15.5 g/dL 08/27/2024 5:22 PM [facility] HCT 33.1(L) 34.9 - 44.5 % 08/27/2024 5:22 PM [facility] MCV 89.2 80.0 - 100.0 fL 08/27/2024 5:22 PM [facility] MCH 31.8 27.6 - 33.3 pg 08/27/2024 5:22 PM [facility] MCHC 35.6(H) 31.5 - 35.2 g/dL 08/27/2024 5:22 PM [facility] RDW 13.2 11.9 - 15.5 % 08/27/2024 5:22 PM [facility] Platelets 190 150 - 450 x10(9)/L 08/27/2024 5:22 PM [facility] Automated NRBC 0 <=0 /100 WBC 08/27/2024 5:22 PM [facility] Blood Venipuncture / Unknown 08/27/2024 5:11 PM ORGAN BUILDER 08/27/2024 5:16 PM ORGAN BUILDER Peyton Omalley PA-C LAB_[address] [address], [facility] from Last 3 Months Care Teams Internet Sales Director Relationship Specialty Start Date End Date No Primary/Referring, Phy PCP - General 02/10/21
--- OUTSIDE RECORDS SUMMARY | 2024-09-09 22:21 | XMS_ITS | Encounter Summary ---
Author Organization [facility] Address [address] [place] [address] Care Team Providers Care Flat Locker Name Role Phone No Ref-Primary, Physician Primary Care Provider Reason for Referral * Diagnostic Imaging Ultrasound (Routine) - Pending Review Specialty Diagnoses / Procedures Referred By Migel ferro Referred To Contact Radiology. Diagnoses Hyperemesis gravidarum Subchorionic hemorrhage in first trimester Procedures [facility] Kaci Price MD [address] [address] Phone: tel: fax: Referral ID Status Reason Start Date Expiration Date V isits Requested Visits Authorized [id number] Pending Review 08/08/2024 08/08/2025 1 1 NITION AND EXPLOSIVES HANDLER Reason for Visit * Diagnostic Imaging Ultrasound (Routine) - Pending Review Specialty Diagnoses / Procedures Referred By Migel ferro Referred To Contact Radiology. Diagnoses Hyperemesis gravidarum Subchorionic hemorrhage in first trimester Procedures [facility] Kaci Saavedra MD [address] [address] Phone: tel: fax: Referral ID Status Reason Start Date Expiration Date V isits Requested Visits Authorized [id number] Pending Review 08/08/2024 08/08/2025 1 1 Encounter Details Date Type Department Care Team (Latest Contact Info) Description 09/05/2024 7:49 AM AMMUNITION AND EXPLOSIVES HANDLER - 09/05/2024 11:59 PM AMMUNITION AND EXPLOSIVES HANDLER Hospital Encounter [facility] Maternal Medicine [place] [address] [facility] [address] [place] [phone] Amara Owens MD [address] [place], [place] [phone] Hyperemesis gravidarum; Subchorionic hemorrhage in first trimester Discharge Disposition: Home or Self Care Social History Tobacco Use Types Packs/Day Years [...] on file documented as of this encounter Medications at Time of Discharge order for DMEIndications:Sh oulder injury, left, initial encounter Shoulder sling 1 Units 04/18/2017 documented as of this encounter Plan of Treatment Upcoming Encounters Date Type Department Care Team (Late st Contact Info) Description 10/24/2024 2:15 PM AMMUNITION AND EXPLOSIVES HANDLER Appointment [facility] [place] [address] [place] [phone] Amara Owens MD [address] [place], [place] [phone] 10/24/2024 2:45 PM AMMUNITION AND EXPLOSIVES HANDLER Office Visit [facility] [place] [address] [place] [phone] Amara Owens MD [address] [place], [place] [phone] documented as of this encounter Procedures Procedure Name Priority Date/Time Associated Diagnosis Comments [facility] US COMPREHENSIVE SINGLE Routine 09/05/2024 9:37 AM AMMUNITION AND EXPLOSIVES HANDLER Hyperemesis gravidarum Subchorionic hemorrhage in first trimester documented in this encounter Results * [facility] US Comprehensive Single (09/05/2024 9:37 AM AMMUNITION AND EXPLOSIVES HANDLER) Anatomical Region Laterality Modality Ultrasound 09/05/2024 8:36 AM AMMUNITION AND EXPLOSIVES HANDLER Impressions 09/05/2024 5:24 PM AMMUNITION AND EXPLOSIVES HANDLER IMPRESSION ----- 1. Charles at 18w 5d [...] of vasa previa. Narrative 09/05/2024 5:24 PM AMMUNITION AND EXPLOSIVES HANDLER Comprehensive ----- Pat. Name: LILIAN RODRA Study Date: 09/05/2024 8:36am Pat. NO: [id number] Referring MD: DAGO MARROQUIN Site: Cryptologic Technician Technical: Ana Otto RDMS : 2000 Age: 23 [...] 0 lb 10 oz EFW by Hadlock ([id number]) Head / Face / Neck Biometry: Development And Planning Engineer 5.1 mm CM 6.8 mm Nasal bone 6.4 mm ANATOMY ----- The following structures appear normal: Head / Neck Cranium. Head size. Head shape. Lateral ventricles. Choroid plexus. Midline falx. Cavum septi pellucidi. Cerebellum. Cisterna magna. Parenchyma. Thalami. Vermis. Neck. Nuchal fold. Face Lips. Profile. Nose. Maxilla. Mandible. Orbits. Lens. Heart / Thorax 4-chamber view. RVOT view. LVOT view. 3-vessel view. 0-bvxfwv-bdowqco view. Situs. Aortic arch view. Bicaval view. [...] She will have her OB care in [place], but would like to have serial US with [facility]. We recommend growth at least at [...] medical record, and communicating with other health auto care center manager and/or care coordination. Procedure Note Amara Owens MD - 09/05/2024 Comprehensive ----- Pat. Name: ANA ROD Study Date: 09/05/2024 8:36am Pat. NO: [id number] Referring MD: DAGO RATLIFFPHAL Site: Cryptologic Technician Technical: Ana Otto RDMS : 2000 Age: 23 ----- INDICATION ----- Possible vasa previa and succenturiate lobe on outside ultrasound. Vaginal bleeding in second trimester. METHOD ----- Transabdominal ultrasound examination. View: Sufficient ----- Charles . Number of fetuses: 1 DATING ----- DateDetailsGest. age DENISSE LMPCycle: LMP date not known Previous /S 06/08/2024 GA, GA6 w + 0 d18 [...] EFW (lb,oz) 0 lb 10oz EFW by Hadlock([id number]) Head / Face / Neck Biometry: Development And Planning Engineer 5.1mm CM 6.8mm Nasal bone 6.4mm ANATOMY ----- The following structures appear normal: Head / Neck Cranium. Head size. Head shape.Lateral ventricles. Choroid plexus. Midline falx. Cavum septi pellucidi.Cerebellum. Cisterna magna. Parenchyma. Thalami. Vermis. Neck. Nuchal fold. Face Lips. Profile. Nose. Maxilla.Mandible. Orbits. Lens. Heart / Thorax 4-chamber view. RVOT view. LVOT view.3-vessel view. 5-rxyyxz-knqbexu view. Situs. Aortic arch view. Bicavalview. Ductal [...] She will have her OB care in [place], but would like to have serial USwith [facility]. We recommend growth at least at [...] electronic medical record, andcommunicating with other health auto care center manager and/or carecoordination. IMPRESSION ----- 1. Charles [...] of vasa previa. us Kaci Price MD Jennifer [facility] US ORDERABLES Edited Res ult - Final documented in this encounter Visit Diagnoses Diagnosis Hyperemesis gravidarum Mild hyperemesis gravidarum, unspecified as to episode of care Subchorionic hemorrhage in first trimester documented in this encounter Care Teams Flat Locker Relationship Specialty Start Date End Date No Ref-Primary, Physician PCP - General 08/07/24 documented as of this encounter
--- OUTSIDE RECORDS SUMMARY | 2024-09-09 22:21 | XMS_ITS | Encounter Summary ---
Author Organization [facility] Address [address] [place] [address] Care Team Providers Care Block Chopper Hand Name Role Phone No Primary/Referring, Phy Primary Care Provider Unavailable Encounter Details Date Type Department Care Team (Late st Contact Info) Description 09/01/2024 E-Visit [facility] Maternal Medicine [address] [place] [phone] Mee, [place] [address] Social History Tobacco Use Types Packs/Day Years [...] st Contact Info) Description 09/19/2024 10:30 AM STUDIO HAND Appointment [facility] [address] [place] [address] Ariane Domínguez, HUMAN CAPITAL CONSULTANT, TRAVOGRAPH OPERATOR [address] [place], [place] [phone] 09/19/2024 11:45 AM STUDIO HAND Appointment [facility] [address] [place] [address] Almita Troncoso MD [address] [place], [place] [phone] documented as of this encounter Visit Diagnoses Not on filedocumented in this encounter Care Teams Block Chopper Hand Relationship Specialty Start Date End Date No Primary/Referring, Phy PCP - General 02/10/21 documented as of this encounter
--- OUTSIDE RECORDS SUMMARY | 2024-09-09 22:21 | XMS_ITS | Encounter Summary ---
Author Organization [facility] Address [address] [place] [address] Care Team Providers Care Position Classifier Name Role Phone No Primary/Referring, Phy Primary Care Provider Unavailable Reason for Visit * Reason Comments Questions Encounter Details Date Type Department Care Team (Late st Contact Info) Description 08/30/2024 Telephone Obstetrics & Gynecology at [address] [address] Ariane Domínguez, ENTERTAINMENT & MEDIA CORRESPONDENT, WEIGHT ANALYST [address] [place] [address] Questions Social History Tobacco Use Types Packs/Day Years [...] on file documented as of this encounter Nursing Notes * Anna Marie Paiz, SUKUMAR - 08/30/2024 1:04 PM CST Pt calling back. States she has not known hx of diabetes & is not on insulin. Called [facility] to notify. She will updated the order & run the lab. Anna Marie Mosher RN 08/30/2024, 1:07 PM [place] mechanical manufacturing engineer GRAIN OR LIVESTOCK FARMER * Brittni Hi RN - 08/30/2024 10:12 AM CST LMTCB Likely this was entered in error, no evidence of DM in chart. SUKUMAR LAMAS 08/30/2024, 10:[address] MIXER OPERATOR GRAIN OR LIVESTOCK FARMER * Guera Riley - 08/30/2024 9:57 AM CST Kiana from [facility] looking for a call back. On questionnaire for Maternal Serum Screen, Alpha Fetoprotein Lab pt indicated that she is insulin dependant diabetic. Please call Kiana back to clarify this as it is not listed in patients chart. GRAIN OR LIVESTOCK FARMER documented in this encounter Plan of Treatment Upcoming Encounters Date Type Department Care Team (Late st Contact Info) Description 09/19/2024 10:30 AM CROP GRAIN OR LIVESTOCK FARMER Appointment [facility] [address] [place] [address] Ariane Domínguez, ENTERTAINMENT & MEDIA CORRESPONDENT, WEIGHT ANALYST [address] [place] [address] 09/19/2024 11:45 AM CROP GRAIN OR LIVESTOCK FARMER Appointment [facility] [address] [place] [address] Almita Troncoso MD [address] [place], [place] [phone] documented as of this encounter Visit Diagnoses Not on filedocumented in this encounter Care Teams Position Classifier Relationship Specialty Start Date End Date No Primary/Referring, Phy PCP - General 02/10/21 documented as of this encounter
--- OUTSIDE RECORDS SUMMARY | 2024-09-09 22:21 | XMS_ITS | Referral Summary ---
Author Organization [facility] Address [address] [place] [address] Care Team Providers Care Mobile Equipment Mechanic Name Role Phone No Ref-Primary, Physician Primary Care Provider Encounters Date Type Department Care Team Description 09/05/2024 Travel 09/05/2024 9:15 AM BUS TRANSPORTATION MANAGER Office Visit [facility] [place] [address] [facility] [facility] [address] [place] [phone] Amara Owens MD Velamentous insertion of umbilical cord in second trimester (Primary Dx) 09/05/2024 7:49 AM BUS TRANSPORTATION MANAGER - 09/05/2024 11:59 PM BUS TRANSPORTATION MANAGER Hospital Encounter [place] [address] [facility] [address] [place] [phone] Amara Owens MD Hyperemesis gravidarum; Subchorionic hemorrhage in first trimester Discharge Disposition: Home or Self Care 09/05/2024 8:00 AM BUS TRANSPORTATION MANAGER Office Visit [facility] [address] [facility] [address] [place] [phone] Amara Owens MD Maher, Mackenzie A, GC Hyperemesis gravidarum (Primary Dx); Subchorionic hemorrhage in first trimester; Recurrent loss 08/28/2024 PRE VISIT [facility] [address] [facility] [address] [place] [phone] Hamida Fan RN Genetic Counseling (Hyperemesis, Anxiety, Recurrent loss, KVNG 1st trimester); Ultrasound (L2-Hyperemesis, Anxiety, Recurrent loss, KVNG 1st trimester) 08/08/2024 Orders Only [facility] [address] [place] [address] Kimberly Chung RN Hyperemesis gravidarum (Primary Dx); Subchorionic hemorrhage in first trimester 08/07/2024 Medical Correspondence [facility] [address] [facility] [address] [place] [address] Scan, Non-Provider 08/07/2024 Transcribe Orders [facility] [place] [address] [facility] [address] [place] [address] Gwendolyn Szymanski APRN CNM related condition, antepartum (Primary Dx) from Last 3 Months Allergies No known active allergies Medications order for DMEIndications: Shoulder injury, left, initial encounter Shoulder sling 1 Units 04/18/2017 Active Social History Tobacco Use Types Packs/Day [...] st Contact Info) Description 10/24/2024 2:15 PM BUS TRANSPORTATION MANAGER Appointment [facility] Maternal Medicine [facility] [address] [facility] [address] [place] [address] Amara Owens MD [address] [place], [place] [phone] 10/24/2024 2:45 PM BUS TRANSPORTATION MANAGER Office Visit [facility] Maternal Medicine [facility] [address] [facility] [address] [place] [address] Amara Owens MD [address] [place], [place] [phone] Procedures Procedure Name Priority Date/Time Associated Diagnosis Comments [facility] US COMPREHENSIVE SINGLE Routine 09/05/2024 9:37 AM BUS TRANSPORTATION MANAGER Hyperemesis gravidarum Subchorionic hemorrhage in first trimester from Last 3 Months Results * [facility] US Comprehensive Single (09/05/2024 9:37 AM BUS TRANSPORTATION MANAGER) Anatomical Region Laterality Modality Ultrasound 09/05/2024 8:36 AM BUS TRANSPORTATION MANAGER Impressions 09/05/2024 5:24 PM BUS TRANSPORTATION MANAGER IMPRESSION ----- 1. Charles at 18w 5d [...] of vasa previa. Narrative 09/05/2024 5:24 PM BUS TRANSPORTATION MANAGER Comprehensive ----- Pat. Name: LILIAN RODRA Study Date: 09/05/2024 8:36am Pat. NO: [id number] Referring MD: GWENDOLYN SZYMANSKI Site: [facility] Cutter: Ana Otto RDMS : 2000 Age: 23 ----- INDICATION ----- Possible vasa previa and succenturiate lobe on outside ultrasound. Vaginal bleeding in second trimester. METHOD ----- Transabdominal ultrasound examination. View: Sufficient ----- Charles . Number of fetuses: 1 DATING ----- Date Details Gest. age DENISSE LMP Cycle: LMP date not known Previous /S 06/08/2024 GA, GA 6 w + 0 [...] 0 lb 10 oz EFW by Hadlock ([id number]) Head / Face / Neck Biometry: Food Runner 5.1 mm CM 6.8 mm Nasal bone 6.4 mm ANATOMY ----- The following structures appear normal: Head / Neck Cranium. Head size. Head shape. Lateral ventricles. Choroid plexus. Midline falx. Cavum septi pellucidi. Cerebellum. Cisterna magna. Parenchyma. Thalami. Vermis. Neck. Nuchal fold. Face Lips. Profile. Nose. Maxilla. Mandible. Orbits. Lens. Heart / Thorax 4-chamber view. RVOT view. LVOT view. 3-vessel view. 4-gfhbmw-sexdrst view. Situs. Aortic arch view. Bicaval view. [...] She will have her OB care in [place], but would like to have serial US with MFM. We recommend growth at least at 28 [...] medical record, and communicating with other health patient care coordinator and/or care coordination. Procedure Note Amara Owens MD - 09/05/2024 Comprehensive ----- Pat. Name: ANA ROD Study Date: 09/05/2024 8:36am Pat. NO: [id number] Referring MD: GWENDOLYN SZYMANSKI Site: [place] Cutter: Ana Otto RDMS : 2000 Age: 23 [...] EFW (lb,oz) 0 lb 10oz EFW by Hadlock([id number]) Head / Face / Neck Biometry: Food Runner 5.1mm CM 6.8mm Nasal bone 6.4mm ANATOMY ----- The following structures appear normal: Head / Neck Cranium. Head size. Head shape.Lateral ventricles. Choroid plexus. Midline falx. Cavum septi pellucidi.Cerebellum. Cisterna magna. Parenchyma. Thalami. Vermis. Neck. Nuchal fold. Face Lips. Profile. Nose. Maxilla.Mandible. Orbits. Lens. Heart / Thorax 4-chamber view. RVOT view. LVOT view.3-vessel view. 4-aefboe-oauhjnc view. Situs. Aortic arch view. Bicavalview. Ductal [...] She will have her OB care in [place], but would like to have serial USwith [facility]. We recommend growth at least at [...] electronic medical record, andcommunicating with other health patient care coordinator and/or carecoordination. IMPRESSION ----- 1. Charles at [...] of vasa previa. us Kaci Price MD [facility] ORDERABLES Edited Res ult - Final from Last 3 Months Insurance [employer] none (Work) [id number] [id number] [employer] [facility] Care Teams Mobile Equipment Mechanic Relationship Specialty Start Date End Date No Ref-Primary, Physician PCP - General 08/07/24
--- OUTSIDE RECORDS SUMMARY | 2024-09-09 22:21 | XMS_ITS | Encounter Summary ---
Author Organization [facility] Address [address], [place] [address] Care Team Providers Care Network Security Officer Name Role Phone No Primary/Referring, Phy Primary Care Provider Unavailable Encounter Details Date Type Department Care Team (Late st Contact Info) Description 08/29/2024 E-Visit Obstetrics & Gynecology at [address] [address] Belén Ray, GREASER HELPER, CALIBRATOR BAROMETERS [address] [place], [place] [phone] Social History Tobacco Use Types Packs/Day Years [...] st Contact Info) Description 09/19/2024 10:30 AM PLATE PAINTER APPRENTICE Appointment [facility] [address] [place], [place] [phone] Ariane Domínguez, GREASER HELPER, CALIBRATOR BAROMETERS [address] [place], [place] [phone] 09/19/2024 11:45 AM PLATE PAINTER APPRENTICE Appointment [facility] [address] [place] [address] Almita Troncoso MD [address] [place], [place] [phone] documented as of this encounter Visit Diagnoses Not on filedocumented in this encounter Care Teams Network Security Officer Relationship Specialty Start Date End Date No Primary/Referring, Phy PCP - General 02/10/21 documented as of this encounter
--- OUTSIDE RECORDS SUMMARY | 2024-09-09 22:21 | XMS_ITS | Encounter Summary ---
Author Organization [facility] Address [address], [place] [address] Care Team Providers Care Calender Runner Name Role Phone No Primary/Referring, Phy Primary Care Provider Unavailable Reason for Visit * Reason Comments Medication Follow Up Encounter Details Date Type Department Care Team (Late st Contact Info) Description 08/29/2024 Telephone Obstetrics & Gynecology at [address] [address] Belén Ray, BARK FITTER, MANUFACTURING INTERN [address] [place] [address] Medication Follow Up Social History Tobacco Use Types Packs/Day Years [...] as of this encounter Nursing Notes * Mary Bettencourt, RN - 08/29/2024 2:33 PM CST OPS. Mary Bettencourt RN 08/29/2024, 2:33 PM W[place] VALET PARKING ATTENDANT NE FACILITATOR * Belén Ray APRN, CNP - 08/29/2024 2:29 PM CST Please notify pt that per current recommendation she does not need to take progesterone. Data does not show that it increases her chances of term life . Advising her to d/c as there is no indication. Let me know if you have additional questions. Belén Ray APRN, CNP 08/29/2024, 2:31 PM NE FACILITATOR documented in this encounter Plan of Treatment Upcoming Encounters Date Type Department Care Team (Late st Contact Info) Description 09/19/2024 10:30 AM ONLINE FACILITATOR Appointment [facility] [address] [place] [address] Ariane Domínguez APRN, MANUFACTURING INTERN [address] [address] 09/19/2024 11:45 AM ONLINE FACILITATOR Appointment [facility] [address] [place] [address] Almita Troncoso MD [address] [place] [address] documented as of this encounter Visit Diagnoses Not on filedocumented in this encounter Care Teams Calender Runner Relationship Specialty Start Date End Date No Primary/Referring, Phy PCP - General 02/10/21 documented as of this encounter
--- OUTSIDE RECORDS SUMMARY | 2024-09-09 22:21 | XMS_ITS | Encounter Summary ---
Author Organization [facility] Address [address] [address] Care Team Providers Care Gasoline Truck Operator Name Role Phone No Primary/Referring, Phy Primary Care Provider Unavailable Reason for Visit * Reason Comments REFERRAL REQUEST Encounter Details Date Type Department Care Team (Late st Contact Info) Description 08/28/2024 Telephone [facility] [address] [place] [address] Garry Bergman, RISK CONSULTING TREASURY DIRECTOR REQUEST Social History Tobacco Use Types Packs/Day Years [...] as of this encounter Nursing Notes * Garry Bergman RN - 08/28/2024 10:11 AM CST Patient was referred to MFM during [facility] ED visit for succenturiate lobe/vasa previa. Called to speak with patient. She has been seeing [facility] for OB care but [facility] First OB visit scheduled. MFM will contact to schedule patient MERRY as well. DENISSE not yet added. DENISSE by LMP is 02/03/25. Patient reports DENISSE of 01/27/25 based on early ultrasound at [facility] but ultrasound reports are not available via Care Everywhere. Garry Bergman RN 08/28/2024, 10:12 AM K LAYER documented in this encounter Plan of Treatment Upcoming Encounters Date Type Department Care Team (Late st Contact Info) Description 09/19/2024 10:30 AM BLOCK LAYER Appointment [facility] [address] [place] [address] Ariane Domínguez, SEWING LINE BALER, FOOD PROCESSING PLANT MANAGER [address] [place], [place] [phone] 09/19/2024 11:45 AM BLOCK LAYER Appointment [facility] [address] [place] [address] Almita Troncoso MD [address] [place], [place] [phone] documented as of this encounter Visit Diagnoses Not on filedocumented in this encounter Care Teams Gasoline Truck Operator Relationship Specialty Start Date End Date No Primary/Referring, Phy PCP - General 02/10/21 documented as of this encounter
--- OUTSIDE RECORDS SUMMARY | 2024-09-09 22:22 | XMS_ITS | Encounter Summary ---
Author Organization [facility] Address [address] [place] [address] Care Team Providers Care Photo Graphics Librarian Name Role Phone No Primary/Referring, Phy Primary Care Provider Unavailable Reason for Visit * Reason Comments ,1st Ob Encounter Details Date Type Department Care Team (Late st Contact Info) Description 08/28/2024 Telephone Obstetrics & Gynecology at [address] [address] Ariane Domínguez, CASH ANALYST, MAGICIAN/ILLUSIONIST [address] [place], [place] [phone] ,1st Ob Social History Tobacco Use Types Packs/Day Years [...] as of this encounter Nursing Notes * Anel Ruffin RN - 08/28/2024 12:23 PM CST NOB triage note reviewed. Rx Flagyl 500 mg PO BID x 7 days was sent to the pharmacy listed. Ariane Domínguez APRN, CNP 08/28/2024, 12:22 PM Called the patient to let her know that the above medication was sent to her preferred pharmacy on file. Also went over with her to not drink any alcohol while taking this medication due to it will cause projectile vomiting. Also noted that she is , but just wanted to let her know. All questions answered. Anel Ruffin RN [facility] KMASON * Ariane Domínguez APRN, CNP - 08/28/2024 12:22 PM CST NOB triage note reviewed. Rx Flagyl 500 mg PO BID x 7 days was sent to the pharmacy listed. Ariane Domínguez APRN, CNP 08/28/2024, 12:22 PM KMASON * Liseth Dc RN - 08/28/2024 12:14 PM CST Will send to provider to review and advise. Patient is 17w2d based on LMP who is a transfer of [facility]. complicated by vasa previa. First OB is on 08/29. Was seen at ED on 08/27 and dx with BV. Was prescribed metrogel but [facility] pharmacy was out. Advised patient metrogel is not the recommended form of treatment and will request new Rx from provider for PO metronidazole. Pharmacy updated. Liseth Dc RN [place] FRAME EXPANDER KMASON * Liseth Dc RN - 08/28/2024 12:06 PM CST Ronit Francisco has had a positive Home test in May. Is this good news? Yes Obstetrical History OB History Para Term AB Living 4 0 0 0 3 0 SAB IAB Ectopic Multiple Live Births 3 0 0 0 0 # Outcome Date GA Lbr Tommy/2nd Weight Sex Type Anes PTL Lv 4 Current 3 SAB 01/2024 Comments: D&C x2 2 2022 Comments: D&C 1 2021 LMP: Patient's last menstrual period was 04/29/2024. -Para: DENISSE: Estimated Date of Delivery: 02/03/25 What hospital do you plan to deliver at? Unknown - [facility] *At [facility] Third Shift Lieutenant clinics, we offer care with physicians, nurse midwives, and nurse practitioners. Nurse midwives and nurse practitioners are nurses who complete advanced training tocare for individuals with uncomplicated pregnancies. They see patients in clinic and provide care for their patients at [facility]. You are welcome to schedule with either a physici an or a real estate lawyer to begin your care. *If the patient has had a prior ; obtain records. No Risks Symptoms in Early : Intermittent lower abdominal pain that interferes with daily activities for >3 hours and <24 hours: N/A Mild vaginal bleeding (ie: less than 1 pad/hour, less than patients usual menstrual bleeding, and not just spotting): N/A Spotting lasting >48 hours or spotting happens more than once a week: N/A *If patient does not have a confirmed in [facility], order UPT to be completed 30 minutes priorto US. Schedule lab and US in same location. If UPT is negative cancel US. Complicating History in Early : History of ectopic: N/A History of tubal ligation/ surgery: N/A Current IUD: N/A History of PID: N/A Abnormality of fallopian tubes identified by x-ray or surgery: N/A Unknown LMP: N/A Antibody Screen Interpretation Date Value Ref Range Status 08/27/2024 Negative Final Are any of the question above answered yes? No *Update patients Medical, Surgical, Obstetrical History as appropriate. Yes Medications Current Outpatient Medications Medication Sig Dispense Refill metroNIDAZOLE (METROGEL-VAGINAL) 0.75 % vaginal gel Insert 1 Applicatorful vaginally daily at bedtime for 5 days. 5 g 0 progesterone (PROMETRIUM) 200 MG capsule Insert 1 Capsule (200 mg) vaginally daily. No current facility-administered medications for this visit. Medication list has been reviewed and reconciled. Has patient taken any OTC medications since LMP? Yes, see med list Has patient taken any prescription medications since LMP? Yes, see med list *If patient has taken any Thyroid medication order TSH and schedule lab visit within 1 week No *If patient has taken Insulin advise patient to notify prescribing provider (Endo or PCP) and orderHGB A1C to be drawn within 1 week if the patient has not had one drawn the last 3 months No Substance History Tobacco: Social History Tobacco Use Smoking Status Former Current packs/day: 0.00 Types: Cigarettes Quit date: 04/17/2022 Years since quittin.3 Smokeless Tobacco Never Alcohol (since positive test): Social History Substance and Sexual Activity Alcohol Use Not Currently Recreational Drugs (including marijuana): Social History Substance and Sexual Activity Drug Use Not Currently Are you concerned about your personal safety? 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 First OB exam scheduled Patient was advised to: Drink 8-10 glasses of water daily Begin Vitamin with Folic Acid or Folic Acid 800 mcg daily Limit caffeine intake to 200 mg or less per day (8 oz coffee = 100-200mg caffeine) Avoid Aspirin, Ibuprofen, and Naproxen. May take Tylenol for minor pain. Avoid changing cat litter if caring for cats. Patient was informed: Advised patient to call their insurance to verify coverage locations for delivery. Advised that genetic screening tests will be discussed at the 1st OB visit and patient should verify coverage for desired tests. That we are in clinic Wednesday thru Wednesday 8am - 5pm Clinic Number: [phone] BabyLine: [phone] Contact clinic with any questions or concerns during office hours. Contact [facility] with questions or concerns before/after clinic hours, weekends, and on holidays that the clinic is closed. If you choose to message your care team via online patient services please note that e-mails/E-visits are not monitored outside of Wednesday through Wednesday business hours. If you experience any unusual abdominal pain, cramping, bleeding/spotting or are unable to keep fluids down for greater than 24 hours please contact the triage nurse or the babyline after hours. If you experience severe abdominal pain/cramping or heavy bleeding, saturating more than 1 pad/hour x 3 hours, you will need to be evaluated immediately in the emergency room. Any other questions or concerns? No Liseth Dc RN Toutle FRAME EXPANDER KMASON * Liseth Dc RN - 08/28/2024 10:05 AM CST Per chart review patient is 18wk and she was seen in the ED yesterday for yellow discharge, vaginitis panel was positive for BV. OB was consulted and it was reported in the notes she has been getting care at [facility], but wants to switch OBGYNs because she feels like she isn't being listened to there. Left message for patient to call back, on patient's preferred phone number. Liseth Dc RN Toutle FRAME EXPANDER KMASON * Kimberly Jacobs - 08/28/2024 10:00 AM CST 1ST OB VISIT - 08/29/2024 Appointment Status: Scheduled Ariane Domínguez APRN, SHWETHA Department: AV FRAME EXPANDER Time: 1:40 PM Length: 40 minutes KMASON documented in this encounter Plan of Treatment Upcoming Encounters Date Type Department Care Team (Late st Contact Info) Description 09/19/2024 10:30 AM BLOCKMASON Appointment [facility] [address] [place] [address] Ariane Domínguez APRN, MAGICIAN/ILLUSIONIST [address] [place], [place] [phone] 09/19/2024 11:45 AM BLOCKMASON Appointment [facility] [address] [place] [address] Almita Troncoso MD [address] [place], [place] [phone] documented as of this encounter Visit Diagnoses Not on filedocumented in this encounter Care Teams Photo Graphics Librarian Relationship Specialty Start Date End Date No Primary/Referring, Phy PCP - General 02/10/21 documented as of this encounter
--- OUTSIDE RECORDS SUMMARY | 2024-09-09 22:22 | XMS_ITS | Encounter Summary ---
Author Organization [facility] Address [address] [address] Care Team Providers Care Textile Dyer Name Role Phone No Primary/Referring, Phy Primary Care Provider Unavailable Reason for Visit * Procedure/Equipment (Routine) - Incomplete Specialty Diagnoses / Procedures Referred By Migel ferro Referred To Contact Procedures US OB Limited Single US OB > 14 Weeks US OB > = 14 Weeks Complete Peyton Omalley PA-C [address] [place] [address] Referral ID Status Reason Start Date Expiration Date V isits Requested Visits Authorized [id number] Incomplete 08/27/2024 11/26/2025 1 1 Encounter Details Date Type Department Care Team (Late st Contact Info) Description 08/27/2024 4:45 PM FIRE WATCHER Ancillary Procedure [facility] [address], [place] [id number] Social History Tobacco Use Types Packs/Day Years [...] by your partner or ex-partner? No 08/27/2024 Estimated Date of Delivery Comme nts Yes 02/03/2025 Based on last me nstrual period of 04/29/2024 Sex and Gender Information Value Date Recorded Sex Assigned at Not on file Gender Identity Not on file Sexual Orientation Not on file documented as of this encounter Plan of Treatment Upcoming Encounters Date Type Department Care Team (Late st Contact Info) Description 09/19/2024 10:30 AM FIRE WATCHER Appointment [facility] [address] [place] [address] Ariane Domínguez, UTILITIES ESTIMATOR AND DRAFTER, [employer]ODUCTION LEAD [address] [place], [place] [id number] 09/19/2024 11:45 AM FIRE WATCHER Appointment [facility] [address] [place] [address] Almita Troncoso MD [address] [place], [place] [phone] documented as of this encounter Procedures Procedure Name Priority Date/Time Associated Diagnosis Comments US OB LIMITED SINGLE STAT 08/27/2024 6:07 PM FIRE WATCHER documented in this encounter Results * US OB Limited Single (08/27/2024 6:07 PM FIRE WATCHER) Anatomical Region Laterality Modality Pelvis Ultrasound 08/27/2024 6:07 PM FIRE WATCHER Narrative 08/27/2024 7:09 PM FIRE WATCHER EXAM: US OB LIMITED SINGLE LOCATION: [facility] DATE: 08/27/2024 INDICATION: 18 weeks with [...] 08/27/2024 EXAM: US OB LIMITED SINGLE LOCATION: [facility] DATE: 08/27/2024 INDICATION: 18 weeks with [...] vasa previa. Peyton Omalley PA-C RAD US documented in this encounter Visit Diagnoses Not on filedocumented in this encounter Care Teams Textile Dyer Relationship Specialty Start Date End Date No Primary/Referring, Phy PCP - General 02/10/21 documented as of this encounter
--- OUTSIDE RECORDS SUMMARY | 2024-09-09 22:22 | XMS_ITS | Encounter Summary ---
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 A label remover will contact you to assist you in setting up this appointment. If you have not been contacted within one week or have any questions, please call [phone]. We suggest you call your health insurance company about your coverage and benefits for this appointment. Question Answer Appointment Urgency? Non-Urgent Multiple Gestation? [facility] Maternal Medicine Consult Indications for MFM Consult succenturiate lobe, vasa previa NT SERVICES VICE PRESIDENT * Consult/Transfer Care (Routine) - New Request Specialty Diagnoses / Procedures Referred By Migel ferro Referred To Contact Diagnoses Vasa previa, single or unspecified fetus Leonardo Ceballos DO [address] [place] [address] Referral ID Status Reason Start Date Expiration Date V isits Requested Visits Authorized [id number] New Request 08/27/2024 11/26/2025 1 1 Scheduling Instructions Your clinician has recommended an appointment with [facility]. You can quickly schedule your appointment by signing in to your online account at [email or web address] or through the text message you may have received. You can also make an appointment by calling [phone]. We also suggest you call your health insurance provider about your benefits and coverage for this appointment. Comments Please contact this patient to establish care at location of her choosing NT SERVICES VICE PRESIDENT * Procedure/Equipment (Routine) - Incomplete Specialty Diagnoses / Procedures Referred By Migel ferro Referred To Contact Procedures US OB Limited Single US OB > 14 Weeks US OB > = 14 Weeks Complete Peyton Omalley PA-C [address] [place] [id number] Referral ID Status Reason Start Date Expiration Date V isits Requested Visits Authorized [id number] Incomplete 08/27/2024 11/26/2025 1 1 NT SERVICES VICE PRESIDENT Reason for Visit * Reason Comments Concerns Encounter Details Date Type Department Care Team (Late st Contact Info) Description 08/27/2024 4:16 PM CLIENT SERVICES VICE PRESIDENT - 08/27/2024 9:53 PM CLIENT SERVICES VICE PRESIDENT [facility] [address] [place] [id number] Alicja Aleman MD [address] [place] [id number] Leonardo Ceballos DO [address] [place] [id number] BV (bacterial vaginosis) (Primary Dx); Vasa previa, single or unspecified fetus; Vaginal discharge during in second trimester Discharge Disposition: Home Social History Tobacco Use [...] Sign Reading Time Taken Comments Blood Pressure 101/63 08/27/2024 5:15 PM CLIENT SERVICES VICE PRESIDENT Pulse 81 08/27/2024 5:15 PM CLIENT SERVICES VICE PRESIDENT Temperature 36.5 C (97.7 F) 08/27/2024 4:08 PM CLIENT SERVICES VICE PRESIDENT Respiratory Rate 20 08/27/2024 4:08 PM CLIENT SERVICES VICE PRESIDENT Oxygen Saturation 98% 08/27/2024 5:15 PM CLIENT SERVICES VICE PRESIDENT Inhaled Oxygen Concentration - - Weight - - Height - - Body Mass Index - - documented in this encounter Discharge Instructions * Discharge Instructions* Peyton Omalley PA-C - 08/27/2024 9:10 PM CLIENT SERVICES VICE PRESIDENT Your ultrasound here today showed that you may have a succenturiate lobe which is when an accessorylobe that develops separate from the main placenta. Your ultrasound also showed that you may also have a condition called vasa previa which is when the blood vessels are near or cross over the opening of the uterus. This will need to be monitored and our OB team has placed a follow up appointment for you to be seen in their clinic. You did test positive for bacterial vaginosis and we will treat this with metronidazole which you will apply topically as a gel for the next 5 days. provided additional information on this diagnosis in your materials. If you start having increased abdominal cr amping or pain, vaginal bleeding, fevers or chills, increased discharge or any new concerning symptoms please return to the emergency department immediately for reevaluation. NT SERVICES VICE PRESIDENT * Attachments The following attachments cannot be sent through Care Everywhere. * Bacterial Vaginosis (Equatorial Guinean) documented in this encounter Medications at Time of Discharge Medication Sig Dispensed Refills Start Date End Date cyclobenzaprine (FLEXERIL) 5 MG tablet Take 1-2 Tablets (5-10 mg) by mouth two times daily as needed for Muscle Spasms. 20 Tablet 03/08/2024 08/28/2024 documented as of this encounter Consult Notes * Keysha Luna MD - 08/27/2024 7:52 PM CSTAssociated Order(s): [facility] Gynecology Consult Ronit Francisco : 2000 Chief Complaint: vaginal discharge HPI: Ronit Francisco is a 23 y.o. at 18w who presents with vaginal discharge in . Endorses gushes of brown-yellow watery fluid and neon yellow vaginal discharge since yesterday. Shenoticed 3-4 gushes of fluid yesterday, which soaked her pants. She has had bright red vaginal bleeding before in , at about 7 weeks, at which time she was diagnosed with a subchorionic hemorrhage. Her bleeding resolved and she hasn't had any more since then. Endorses mild back pain today. Had intercourse once in a few weeks ago but has not had any before or since because her hxof miscarriages made her nervous. She endorses h/o UTI but has not had urinary symptoms recently. Reports history of spinal fusion, otherwise no significant past medical or surgical history other than 2 prior D&C and one hysteroscopy earlier this year for uterine polyps. She has been getting care at [facility], but wants to switch OBGYNs because she feels likeshe isn't being listened to there. 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 There is no problem list on file for this patient. Past Surgical History: Spinal fusion at [facility] D&Cs x2 for miscarriage management Hysteroscopic polypectomy No past surgical history on file. Meds: None Current Outpatient Medications Medication Instructions cyclobenzaprine (FLEXERIL) 5-10 mg, Oral, BID PRN Allergies: Allergies Allergen Reactions Droperidol Other, see comments Akithisia reaction (received 2.5mg while claustrophobic in MRI and had significant reaction requiring diphenhydramine) Social History: Social History Socioeconomic History Marital status: Single Spouse name: Not on file Number of children: Not on file Years of education: Not on file Highest education level: Not on file Occupational History Not on file Tobacco Use Smoking status: Not on file Smokeless tobacco: Not on file Substance and Sexual Activity Alcohol use: Not on file Drug use: Not on file Sexual activity: Not on file Other Topics Concern Not on file Social History Narrative Not on file Social Determinants of Health Financial Resource Strain: High Risk (10/18/2021) [facility] [employer] [facility] Financial Resource Strain Difficulty of Paying Living Expenses: Not on file Difficulty of Paying Living Expenses: Not on file Food Insecurity: Not on file Transportation Needs: Not on file Physical Activity: Not on file Stress: Not on file Social Connections: Unknown (10/18/2021) Received from [facility], [employer] [facility] Social Connections Frequency of Communication with Friends and Family: Not on file Intimate Partner Violence: Not At Risk (08/27/2024) Humiliation, Afraid, Rape, and Kick questionnaire Fear of Current or Ex-Partner: No Emotionally Abused: No Physically Abused: No Sexually Abused: No Housing Stability: Not on file Family History: No family history on file. ROS: A 10-point review of systems was negative except as noted in HPI O: Filed Vitals: 08/27/24 1630 08/27/24 1645 08/27/24 1700 08/27/24 1715 BP: 110/71 115/66 106/63 101/63 Pulse: 95 96 94 81 Resp: Temp: TempSrc: SpO2: 96% 99% 100% 98% Physical Exam: Gen: Well-appearing, in no acute distress Head: Normocephalic, atraumatic, EOMI, normal ROM of neck CV: Regular rate, warm and well perfused Resp: Breathing comfortably on RA Chest: No masses or tenderness Abd: Soft, non-distended, non-tender Pelvic: Normal external female genitalia, normal vaginal mucosa and cervix, cervix appears closed without lesions or bleeding, small amount of bright yellow discharge in the posterior fornix Skin: Warm and dry, no lesions seen Neuro: No focal neural deficits, alert and oriented x3 Psych: Behavior and mood appropriate Labs: Hospital Encounter on 08/27/24 (from the past 24 hour(s)) Complete Blood Count-No Diff Result Value Ref Range WBC 8.6 3.5 - 10.5 x10(9)/L RBC 3.71 (L) 3.90 - 5.03 x10(12)/L Hemoglobin 11.8 (L) 12.0 - 15.5 g/dL HCT 33.1 (L) 34.9 - 44.5 % MCV 89.2 80.0 - 100.0 fL MCH 31.8 27.6 - 33.3 pg MCHC 35.6 (H) 31.5 - 35.2 g/dL RDW 13.2 11.9 - 15.5 % Platelets 190 150 - 450 x10(9)/L Automated NRBC 0 <=0 /100 WBC Type and Screen Narrative The following orders were created for panel order Type and Screen. Procedure Abnormality Status --------- ------ Blood Type[[id number]] Final result Antibody Screen[[id number]] Final result Please view results for these tests on the individual orders. Blood Type Result Value Ref Range ABO A RH Positive Antibody Screen Result Value Ref Range Antibody Screen Interpretation Negative UA Conditional UC: Clean Catch Specimen: Clean Catch; Urine Result Value Ref Range Urine Culture Comment Urine Color Yellow Urine Clarity Clear Clear Specific [place], Urine 1.026 <1.030 PH Urine 5.5 5.0 - 8.0 Protein, Urine Qual (mg/dL) 10 Negative, 10 , 20 Glucose Urine Qual (mg/dL) Normal (Negative) Normal (Negative), 30 , 50 Ketones, Urine (mg/dL) Negative Negative, Trace Urobilinogen, Urine (EU/dL) Normal (Negative) Normal (Negative) Bilirubin Urine (mg/dL) Negative Negative Blood, Urine (mg/dL) Negative Negative, 0.03 (Trace) Nitrite Urine Negative Negative Leukocyte Esterase, Urine (Sarath/uL) Negative Negative, 25 (Trace) Red Blood Cells 3 0 - 3 /HPF White Blood Cells 5 0 - 5 /HPF Squamous Epithelial Cells Few None Seen, Occasional, Few /HPF Mucus Present (A) None Seen /HPF Crystals, Calcium Oxalate Present (A) None Seen Source Clean Catch Narrative The qualitative interpretive guidance provided (e.g., small, moderate, large) is intended to aid inquantitative result interpretation. It is not itself an FDA- cleared test result. Imaging: US OB Limited Single EXAM: US OB LIMITED SINGLE LOCATION: [facility] DATE: 08/27/2024 INDICATION: 18 weeks with [...] to the cervical os with vessels crossing overthe internal cervical loss on color duplex ultrasound suggesting a succenturiate lobe with vasa previa. A/P Ronit Francisco is a 23 y.o. at 18w who presents with vaginal discharge. Endorses gushes of yellow fluid/discharge over the past few days. US in the ED shows normal amniotic fluid and on exam pt with small amount of yellow discharge (no blood) but no pooling fluid making concern for previable PPROM very low. US did show succenturiate lobe with vasa previa; this finding was discussed withthe patient and she expressed interest in establishing care with [facility]; we discussed MFM referral as well. Overall presentation seems c/w vaginitis. ED team to f/up vaginitis panel and treat as necessary; GC/CT will likely result after discharge and can be followed in the outpatient settin g. #Vaginal discharge - Yeast, GC/CT swab today, treat as indicated - UA wnl, no evidence of UTI #Succenturiate Placental Lobe #Vasa Previa - OB follow-up, anticipate MFM consult and MFM Level 2 US - Discussed indication for pelvic rest and went over safe activity level in Patient seen and discussed with Dr. Luna. Vandana Kenney MD [facility] PGY-3 08/27/2024 8:38 PM Staff Addendum: Date of service: 08/27/2024 I was present with resident today during the history and exam. I have reviewed and verified the documentation. Ronit Francicso is a 23 y.o. at 18w here with vaginal discharge, found on US to have succenturiate placental lobe and vasa previa. No evidence of bleeding at this time. Normal LUIS EDUARDO, no evidence of PPROM. Latest Reference Range & Units 08/27/24 20:15 Bacterial Vaginosis Negative Positive ! Treat BV with flagyl 500 BID x7d. Pelvic rest for vasa previa. Discussed return precautions. OB and MFM referrals placed to establish care at [facility]. Keysha Luna MD 08/27/2024, 9:30 PM NT SERVICES VICE PRESIDENT documented in this encounter ED Notes * Dulce Stephens RN - 08/27/2024 9:[address] [facility] ED Nursing Discharge Note Arrival Information: Patient arrived: Car Patient escorted by: Self Discharge Information: Patient discharged: Home Patient accompanied by: Accompanied By: Self Transport mode: Mode: Walk Discharge instructions given and explained to patient: New discharge prescriptions explained to patient: Yes: Medications Prescribed this Visit Disp Refills Start End metroNIDAZOLE (FLAGYL) 500 MG tablet 14 Tablet 0 08/27/2024 09/03/2024 Take 1 Tablet (500 mg) by mouth two times a day for 7 days. Oral metroNIDAZOLE (METROGEL-VAGINAL) 0.75 % vaginal gel 5 g 0 08/27/2024 09/01/2024 Insert 1 Applicatorful vaginally daily at bedtime for 5 days. Vaginal Patient verbalized understanding of discharge plan and capable of completing discharge plan: Yes Does patient require hand-off or assistance with discharge plan: No Belongings and medication returned to patient and prompted to retrieve weapons: Yes Patient level of pain on discharge: (0-10) Pain Rating: Rest: 0 Holds documented by nursing during this visit - reviewed chart for most current hold status: Yes Legal Status Orders (From admission, onward) None NT SERVICES VICE PRESIDENT * Peyton Omalley PA-C - 08/27/2024 4:[address] [facility] Emergency Medicine Visit Note Chief Complaint: Concerns HPI 23 year old who is currently 18 weeks presenting to the emergency department for discharge. Patient states she has had some spotting of clear fluid the past 1-2 weeks than last night passed a large amount of fluid that was yellowish in color. She passed two other large boluses of yellowish colored fluid today, one that soaked through her pants prompting her to present to the ED. Shehas had some lower abdominal cramping that goes into her back. Denies any bloody discharge. Denies any fevers or chills. This is a natural . No recent instrumentation. She has had multiple miscarriages in the past, denies any ectopic pregnancies. She had an ultrasound at 7 weeks that showed normal growth of the fetus. She does not have her next ultrasound until next week. She has had a genetic workup for her miscarriages and tells me that this was all normal. She is uncertain if she has ever had RhoGAM in the past. Denies any recent injury, trauma or significant physical activity. She has not felt the fetus move yet. Triage Vitals [08/27/24 1608] Temp 97.7 ??F (36.5 ??C) Temp src Oral Pulse (!) 127 Resp 20 BP 114/80 SpO2 99 % Physical Exam General: Well appearing, not in acute distress. Alert and conversant Head: No signs of trauma Eyes: Normal pupils. ENT: Freely moving neck, MMM CV: Normal rate, regular rhythm Resp: Non-labored respirations, lungs clear to ausculation bilaterally GI: Soft, non-tender, non-distended MSK: No edema or tenderness to palpation of the lower extremity Skin: Warm and dry. No rashes or diaphoresis Neuro: Awake, alert, answers questions appropriately. Strength grossly equal bilateral upper and lower extremities. Sensation intact. Speech is clear. Psych: Behavior normal MDM: Currently 18 weeks presenting with large amount of fluid passage since last night. History and physical examination as above. Tachycardic otherwise vitals are normal. She is well appearing at this time, comfortable without any significant pain. Initial considerations include PROM, missed , placental abruption, cervical incompetence. Will plan for OB US, UA, RH, CBC. Comfortable at this time. Peyton Omalley PA-C ED Course as of 08/27/242134 Sun Aug 27, 2024 1643 ATTENDING: I personally saw the patient, performed haywood elements of the visit, and supervised patient care with the planning management it specialist. MDM: 23F at 18 weeks with fluid loss. Some lower abdominal cramping as well. Will get labs, US and reassess. [GG] 1844 UA Conditional UC: Clean Catch(!) Negative for infection [DL] 1906 Discussed with radiology ultrasound findings concerning for vasa previa. Will page OB [DL] 1929 Discussed with OB, they will come do a speculum exam. Recommended getting GC/chlamydia testingin addition to vaginitis panel and they will come collect the swabs while doing speculum test [DL] 1936 I met with the patient and updated her on plan. She is comfortable with this. Will await OB for swabs [DL] 2010 OB evaluated the patient and talked to her, she will plan to establish care with us on a referral has been placed. They will follow up with her in clinic. They did a speculum exam and will awaitvaginitis panel. Tell me that she does not need to wait for her GC/chlamydia results can go after vaginitis and follow up in their clinic. [DL] 2128 Bacterial Vaginosis(!): Positive [DL] ED Course User Index [DL] Peyton Omalley PA-C [GG] Alicja Aleman MD Clinical Impressions as of 08/27/242134 Vasa previa, single or unspecified fetus Vaginal discharge during in second trimester BV (bacterial vaginosis) NT SERVICES VICE PRESIDENT documented in this encounter Plan of Treatment Upcoming Encounters Date Type Department Care Team (Late st Contact Info) Description 09/19/2024 10:30 AM CLIENT SERVICES VICE PRESIDENT Appointment [facility] [address] [place] [address] Ariane Domínguez, ADMINISTRATIVE APPEALS [employer] MEMBER, LEAD ENTERPRISE ARCHITECT [address], [place] [id number] 09/19/2024 11:45 AM CLIENT SERVICES VICE PRESIDENT Appointment [facility] [address] [place] [address] Almita Troncoso MD [address], [place] [id number] Scheduled Referrals Name Type Priority Associated Diagnoses Orde r Schedule [facility] Referral Referral Routine Vasa previa, single or unspecified fetus Ordered: 08/27/2024 Maternal Medicine Services Referral Routine Vasa previa, single or unspecified fetus Ordered: 08/27/2024 documented as of this encounter Procedures Procedure Name Priority Date/Time Associated Diagnosis Comments VAGINITIS PANEL STAT 08/27/2024 8:15 PM CLIENT SERVICES VICE PRESIDENT CHLAMYDIA & GC (14 YEARS & OLDER) STAT 08/27/2024 8:15 PM CLIENT SERVICES VICE PRESIDENT US OB LIMITED SINGLE STAT 08/27/2024 6:07 PM CLIENT SERVICES VICE PRESIDENT UA CONDITIONAL UC STAT 08/27/2024 6:0 3 PM CLIENT SERVICES VICE PRESIDENT TYPE AND SCREEN STAT 08/27/2024 5:11 PM CLIENT SERVICES VICE PRESIDENT ANTIBODY SCREEN STAT 08/27/2024 5:11 PM CLIENT SERVICES VICE PRESIDENT BLOOD TYPE STAT 08/27/2024 5:11 PM CLIENT SERVICES VICE PRESIDENT COMPLETE BLOOD COUNT-NO DIFF Routine 08/27/2024 5:11 PM CLIENT SERVICES VICE PRESIDENT documented in this encounter Results * Chlamydia & GC (14 Years and Older): Vagina (08/27/2024 8:15 PM CLIENT SERVICES VICE PRESIDENT) Pathologist [facility] Chlamydia Trachomatis STD Not Detected Not Detected 08/27/2024 9:54 PM CLIENT SERVICES VICE PRESIDENT [facility] N. gonorrhoeae STD Not Detected Not Detected 08/27/2024 9:54 PM CLIENT SERVICES VICE PRESIDENT [facility] Swab STD SPECIMEN FROM VAGINA / Unknown Non-blood Collection / Unknown 08/27/2024 8:15 PM CLIENT SERVICES VICE PRESIDENT 08/27/2024 8:17 PM CLIENT SERVICES VICE PRESIDENT [facility] 08/27/2024 9:54 PM CLIENT SERVICES VICE PRESIDENT Test performed by Real-Time PCR Peyton Omalley PA-C LAB_[address] * (ABNORMAL) Vaginitis Panel (08/27/2024 8:15 PM CLIENT SERVICES VICE PRESIDENT) Pathologist [facility] Bacterial Vaginosis Positive(A) Negative 08/27/2024 9:23 PM CLIENT SERVICES VICE PRESIDENT [facility] Catia Species Not Detected Not Detected 08/27 9:23 PM CLIENT SERVICES VICE PRESIDENT [facility] Catia glabrata/krusei Not Detected Not Detected 08/27/2024 9:23 PM CLIENT SERVICES VICE PRESIDENT [facility] Trichomonas vaginalis Not Detected Not Detected 08/27/2024 9:23 PM CLIENT SERVICES VICE PRESIDENT [facility] Swab STD SPECIMEN FROM VAGINA / Unknown Non-blood Collection / Unknown 08/27/2024 8:15 PM CLIENT SERVICES VICE PRESIDENT 08/27/2024 8:17 PM CLIENT SERVICES VICE PRESIDENT [facility] 08/27/2024 9:23 PM CLIENT SERVICES VICE PRESIDENT Test performed by Real-Time PCR Peyton Omalley PA-C LAB_[facility] [address] [place] [address], [facility] * US OB Limited Single (08/27/2024 6:07 PM CLIENT SERVICES VICE PRESIDENT) Anatomical Region Laterality Modality Pelvis Ultrasound 08/27/2024 6:07 PM CLIENT SERVICES VICE PRESIDENT Narrative 08/27/2024 7:09 PM CLIENT SERVICES VICE PRESIDENT EXAM: US OB LIMITED SINGLE LOCATION: [facility] DATE: 08/27/2024 INDICATION: 18 weeks with [...] 08/27/2024 EXAM: US OB LIMITED SINGLE LOCATION: [facility] DATE: 08/27/2024 INDICATION: 18 weeks with [...] Conditional UC: Clean Catch (08/27/2024 6:03 PM CLIENT SERVICES VICE PRESIDENT) Urine Culture Comment 08/27/2024 6:36 PM [facility] Urine Color Yellow 08/27/2024 6:36 PM [facility] Urine Clarity Clear Clear 08/27/2024 6:36 PM [facility] Specific [place], Urine 1.026 <1.030 08/27/2024 6:36 PM [facility] PH Urine 5.5 5.0 - 8.0 08/27/2024 6:36 PM [facility] Protein, Urine Qual (mg/dL) 10 Negative, 10 , 20 08/27/2024 6:36 PM [facility] Glucose Urine Qual (mg/dL) Normal (Negative) Normal (Negative), 30 , 50 08/27/2024 6:36 PM [facility] Ketones, Urine (mg/dL) Negative Negative, Trace 08/27/2024 6:36 PM [facility] Urobilinogen, Urine (EU/dL) Normal (Negative) Normal (Negative) 08/27/2024 6:36 PM [facility] Bilirubin Urine (mg/dL) Negative Negative 08/27/2024 6:36 PM [facility] Blood, Urine (mg/dL) Negative Negative, 0.03 (Trace) 08/27/2024 6:36 PM [facility] Nitrite Urine Negative Negative 08/27/2024 6:36 PM [facility] Leukocyte Esterase, Urine (Sarath/uL) Negative Negative, 25 (Trace) 08/27/2024 6:36 PM [facility] Red Blood Cells 3 0 - 3 /HPF 08/27/2024 6:36 PM [facility] White Blood Cells 5 0 - 5 /HPF 08/27/2024 6:36 PM [facility] Squamous Epithelial Cells Few None Seen, Occasional, Few /HPF 08/27/2024 6:36 PM [facility] Mucus Present(A) None Seen /HPF 08/27/2024 6:36 PM [facility] Crystals, Calcium Oxalate Present(A) None Seen 08/27/2024 6:36 PM [facility] Source Clean Catch 08/27/2024 6:36 PM [facility] Urine URINE SPECIMEN COLLECTION, CLEAN CATCH / Unknown Non-blood Collection / Unknown 08/27/2024 6:03 PM CLIENT SERVICES VICE PRESIDENT 08/27/2024 6:08 PM CLIENT SERVICES VICE PRESIDENT Narrative [facility] - 08/27/2024 6:36 PM CLIENT SERVICES VICE PRESIDENT The qualitative interpretive guidance provided (e.g., small, moderate, large) is intended to aid in quantitative result interpretation. It is not itself an FDA-cleared test result. Peyton Omalley PA-C [facility]_[address] [address], [facility] [facility] * Antibody Screen (08/27/2024 5:11 PM CLIENT SERVICES VICE PRESIDENT) Antibody Screen Interpretation Negative 08/27/2024 6:50 PM CLIENT SERVICES VICE PRESIDENT [facility] Blood Venipuncture / Unknown 08/27/2024 5:11 PM CLIENT SERVICES VICE PRESIDENT 08/27/2024 5:16 PM CLIENT SERVICES VICE PRESIDENT Peyton Omalley PA-C LAB_1 [facility] [address] * Blood Type (08/27/2024 5:11 PM CLIENT SERVICES VICE PRESIDENT) ABO A 08/27/2024 6:50 PM CLIENT SERVICES VICE PRESIDENT [facility] RH Positive 08/27/2024 6:50 PM CLIENT SERVICES VICE PRESIDENT [facility] Blood Venipuncture / Unknown 08/27/2024 5:11 PM CLIENT SERVICES VICE PRESIDENT 08/27/2024 5:16 PM CLIENT SERVICES VICE PRESIDENT Peyton Omalley PA-C LAB_1 Performing Organization Address [facility] Co de Phone Number [facility] [address] * (ABNORMAL) Complete Blood Count-No Diff (08/27/2024 5:11 PM CLIENT SERVICES VICE PRESIDENT) WBC 8.6 3.5 - 10.5 x10(9)/L 08/27/2024 5:22 PM [facility] RBC 3.71(L) 3.90 - 5.03 x10(12)/L 08/27/2024 5:22 PM [facility] Hemoglobin 11.8(L) 12.0 - 15.5 g/dL 08/27/2024 5:22 PM [facility] HCT 33.1(L) 34.9 - 44.5 % 08/27/2024 5:22 PM [facility] MCV 89.2 80.0 - 100.0 fL 08/27/2024 5:22 PM [facility] MCH 31.8 27.6 - 33.3 pg 08/27/2024 5:22 PM [facility] MCHC 35.6(H) 31.5 - 35.2 g/dL 08/27/2024 5:22 PM [facility] RDW 13.2 11.9 - 15.5 % 08/27/2024 5:22 PM [facility] Platelets 190 150 - 450 x10(9)/L 08/27/2024 5:22 PM [facility] Automated NRBC 0 <=0 /100 WBC 08/27/2024 5:22 PM [facility] Blood Venipuncture / Unknown 08/27/2024 5:11 PM CLIENT SERVICES VICE PRESIDENT 08/27/2024 5:16 PM CLIENT SERVICES VICE PRESIDENT Peyton Omalley PA-C LAB_1 Performing Organization Address City/State/[facility] Co de Phone Number [address] documented in this encounter Visit Diagnoses Diagnosis BV (bacterial vaginosis)- Primary Vaginitis and vulvovaginitis, unspecified Vasa previa, single or unspecified fetus Vaginal discharge during in second trimester BV (bacterial vaginosis) Vaginitis and vulvovaginitis, unspecified Vaginal discharge during in second trimester Vasa previa Vasa previa complicating labor and delivery, unspecified as to episode of care Placenta succenturiate lobe affecting fetus Fetus or affected by other forms of other and unspecified morphological and functional abnormalities of placenta * Triage Assessment Note - Kirit Murphy RN - 08/27/2024 4:09 PM CLIENT SERVICES VICE PRESIDENT Chief complaint: concerns Symptoms/background/relevant history (narrative): Patient aprox 18 weeks . has neverhad a full term. States began having brown tinged discharge two days ago and began havingyellowish/fluid discharge today. States discharge appears neon yellow with the fluid appearing yellowish in color. Patient states has a picture. Endorsing lower back pain that began today. Denies lower abd pain at this time. Denies fevers. Patient a/ox4, RR regular and unlabored. Tachycardic in triage What is most important to you about your ER visit today? Eval NT SERVICES VICE PRESIDENT documented in this encounter Care Teams [employer] Relationship Specialty Start Date End Date No Primary/Referring, Phy PCP - General 02/10/21 documented as of this encounter
== END 2024-09-09 23:41 | disposition home or self-care (01) ==
PROVIDERS: Emergency Provider Family Medicine; PCP Physician Assistant Medical
DX: O20.9 Hemorrhage in early pregnancy, unspecified (principal); Z3A.19 19 weeks gestation of pregnancy
CPT/HCPCS: 76815; 99283; 99284

== ENCOUNTER 2024-09-27 11:40 | Outpatient (CLI) | payer OTHER, SELFPAY | END 2024-09-27 11:41 | disposition home or self-care (01) | LOC: NFLDREF 09-28 12:50 | PROVIDERS: PCP Physician Assistant Medical; Referring Provider Physician Assistant Medical; Visit Provider Advanced Practice Midwife | DX: Z34.92 Encounter for supervision of normal pregnancy, unspecified, second trimester (principal); R82.90 Unspecified abnormal findings in urine; Z3A.22 22 weeks gestation of pregnancy | CPT/HCPCS: 87086 ==

== ENCOUNTER 2024-10-06 11:00 | Outpatient (CLI) | payer OTHER, SELFPAY | END 2024-10-06 11:01 | disposition home or self-care (01) | LOC: NFLDREF 10-07 17:18 | PROVIDERS: PCP Physician Assistant Medical; Referring Provider Physician Assistant Medical; Visit Provider Advanced Practice Midwife | DX: O26.892 Other specified pregnancy related conditions, second trimester (principal); N89.8 Other specified noninflammatory disorders of vagina; R39.89 Other symptoms and signs involving the genitourinary system; Z3A.23 23 weeks gestation of pregnancy | CPT/HCPCS: 87086 ==

== ENCOUNTER 2025-07-26 10:50 | Outpatient (CLI) | payer OTHER, SELFPAY ==
[2025-07-26 14:52] LABS: Chlamydia DNA Amplified* NOT DETECTED (No Detected); GC DNA Amplified* NOT DETECTED (No Detected)
== END 2025-07-26 10:51 | disposition home or self-care (01) ==
PROVIDERS: PCP Physician Assistant Medical; Visit Provider Family Medicine
DX: Z00.00 Encounter for general adult medical examination without abnormal findings (principal); Z13.6 Encounter for screening for cardiovascular disorders; Z13.29 Encounter for screening for other suspected endocrine disorder
CPT/HCPCS: 80053; 80061; 84443; 87491; 87591